=== PATIENT | female | born 1970 | race Caucasian/White ===

== ENCOUNTER 2023-02-22 13:23 | Emergency (ER) | payer OTHER, SELFPAY ==
--- NOTE | 2023-02-22 13:25 | ED.EAR ---
HPI - Ear Problem General Chief complaint: Ear Stated complaint: ear ache Time Seen by Provider: 02/22/23 13:25 Source: patient and RN notes reviewed History of Present Illness HPI Narrative: Patient is a 52-year-old female presents to urgent care with complaints of drainage from the left ear for the last 3 weeks. Patient has been on doxycycline and Levaquin for infection to the left leg. Patient states she has been taking medication as directed. Denies any pain here. Patient is not taking anything [id number] for her symptoms. Denies any fever upper respiratory issues. No acute distress noted. Patient aware of the plan of care. Some parts of this dictation were generated by voice recognition software and may contain typographical and/or grammatical inaccuracies. Related Data Home Medications Medication Instructions Recorded Confirmed apixaban 5 mg tablet (Eliquis) 5 mg PO DIRECTED 02/22/23 02/22/23 atorvastatin 80 mg tablet 80 mg PO DIRECTED 02/22/23 02/22/23 clopidogrel 75 mg tablet 75 mg PO DIRECTED 02/22/23 02/22/23 doxycycline hyclate 100 mg capsule 100 mg PO DIRECTED 02/22/23 02/22/23 escitalopram oxalate 5 mg tablet 5 mg PO DIRECTED 02/22/23 02/22/23 fluconazole 200 mg tablet 200 mg PO DIRECTED 02/22/23 02/22/23 levofloxacin 500 mg tablet 500 mg PO DIRECTED 02/22/23 02/22/23 oxybutynin chloride 5 mg 5 mg PO DIRECTED 02/22/23 02/22/23 tablet,extended release 24 hr potassium chloride 20 mEq 20 meq PO DIRECTED 02/22/23 02/22/23 tablet,extended release(part/cryst) (Klor-Con M) Allergies Allergy/AdvReac Type Severity Reaction Status Date / Time No Known Allergies Allergy Verified 02/22/23 13:35 Review of Systems Review of Systems: CONSTITUTIONAL: Denies fever, chills, or sweats. EYES: Denies visual changes, redness, or discharge. ENT: Denies rhinorrhea, congestion, sore throat. Reports of left ear drainage CARDIOVASCULAR: Denies chest pain, palpitations, or edema. RESPIRATORY: Denies cough or dyspnea. GASTROINTESTINAL: Denies abdominal pain, nausea, vomiting, or diarrhea. GENITOURINARY: Denies dysuria or hematuria. SKIN: Denies rash or itching. MUSCULOSKELETAL: Denies back pain, joint pain, or myalgia. NEUROLOGIC: Denies headache, numbness, or weakness. All other systems reviewed are negative, except as documented in HPI. [facility] Family History Family History (Updated 04/05/16 @ 23:19 by DOCTOR UNKNOWN) Father Family history of blood dyscrasia Sibling Family history of malignant neoplasm of breast in first degree relative Social History Social History Smoking status: Heavy tobacco smoker Alcohol intake: never Comments At the time of my signature, I reviewed and agree with the nursing past medical, surgical, social, and family history. There is no relevant family history pertinent to the patient complaint. Exam Narrative: GENERAL: This is a well-nourished, well-developed patient, in no apparent distress. HEAD: normocephalic, atraumatic. EYES: PERRL. Sclera clear/white. Vision is grossly intact. EARS: External ears normal, right auditory canals clear and without drainage, scant serosanguineous fluid drainage to the left auditory canal. Bilateral TMs normal without perforation. Hearing grossly intact. NOSE: External nose normal with no obvious nasal discharge, nares without redness, no rhinorrhea. THROAT: Mucous membranes moist, posterior pharynx clear. NECK: Neck supple SKIN: warm, intact with no suspicious lesions or rash, good texture and turgor. NEURO: awake, alert, and oriented to person, place and time. There were no obvious focal neurologic abnormalities. EXTREMITIES: No clubbing, cyanosis, or edema. Course Course Level of Care: Express Care Visit Vital Signs Vital signs: Vital Signs Temperature 98.0 F 02/22/23 13:30 Pulse Rate 76 02/22/23 13:30 Respiratory Rate 20 02/22/23 13:30 Blood Pressure 144/72 H 02/22/23 13:3
[2023-02-22 13:30] VITALS: BP 144/72; PULSE 76; RESP 20; TEMP 36.7; O2SAT 100
[2023-02-22 13:36] VITALS: BP 144/72; PULSE 76; RESP 20; TEMP 36.7; O2SAT 100
== END 2023-02-22 13:51 | disposition home or self-care (01) ==
PROVIDERS: Emergency Provider Nurse Practitioner Family
DX: H69.92 Unspecified Eustachian tube disorder, left ear (principal)
CPT/HCPCS: 99203; G0463

== ENCOUNTER 2023-05-05 13:43 | Emergency (ER) | payer OTHER, SELFPAY ==
[2023-05-05 13:50] VITALS: BP 134/61; PULSE 69; RESP 20; TEMP 36.2; O2SAT 100
--- NOTE | 2023-05-05 13:52 | ED.URI ---
HPI - URI/Sore Throat General Chief Complaint: Upper Respiratory Infection Stated Complaint: Congestion Source: patient and RN notes reviewed History of Present Illness HPI Narrative: 52 yo F presents to urgent care with complaints of congestion x 1 day. Pt states she also has a MCCARTHY. Pt denies any fevers, chills, ear pain, sore throat, N/V/D, chest pain, or SOB. Pt states her son currently has covid. Related Data Home Medications Medication Instructions Recorded Confirmed apixaban 5 mg tablet (Eliquis) 5 mg PO DIRECTED 02/22/23 02/22/23 atorvastatin 80 mg tablet 80 mg PO DIRECTED 02/22/23 02/22/23 clopidogrel 75 mg tablet 75 mg PO DIRECTED 02/22/23 02/22/23 escitalopram oxalate 5 mg tablet 5 mg PO DIRECTED 02/22/23 02/22/23 fluconazole 200 mg tablet 200 mg PO DIRECTED 02/22/23 02/22/23 oxybutynin chloride 5 mg 5 mg PO DIRECTED 02/22/23 02/22/23 tablet,extended release 24 hr potassium chloride 20 mEq 20 meq PO DIRECTED 02/22/23 02/22/23 tablet,extended release(part/cryst) (Klor-Con M) Allergies Allergy/AdvReac Type Severity Reaction Status Date / Time No Known Allergies Allergy Verified 02/22/23 13:35 Review of Systems Review of Systems: CONSTITUTIONAL: Denies fever, chills, or sweats. EYES: Denies visual changes, redness, or discharge. ENT:congested CARDIOVASCULAR: Denies chest pain, palpitations, or edema. RESPIRATORY: Denies cough or dyspnea. GASTROINTESTINAL: Denies abdominal pain, nausea, vomiting, or diarrhea. GENITOURINARY: Denies dysuria or hematuria. SKIN: Denies rash or itching. MUSCULOSKELETAL: Denies back pain, joint pain, or myalgia. NEUROLOGIC: MCCARTHY Pertinent positives per HPI. [facility] Family History Family History (Updated 04/05/16 @ 23:19 by DOCTOR UNKNOWN) Father Family history of blood dyscrasia Sibling Family history of malignant neoplasm of breast in first degree relative Social History Social History Smoking status: Heavy tobacco smoker Alcohol intake: never Comments At the time of my signature, I reviewed and agree with the nursing past medical, surgical, social, and family history. There is no relevant family history pertinent to the patient complaint. Exam Narrative: GENERAL: This is a well-nourished, well-developed patient, in no apparent distress. HEAD: normocephalic, atraumatic. EYES: Sclera clear/white. Vision is grossly intact. EARS: External ears normal, auditory canals clear and without drainage, TMs normal without perforation. Hearing grossly intact. NOSE: External nose normal with no obvious nasal discharge, nares without redness, no rhinorrhea. THROAT: Mucous membranes moist, posterior pharynx clear. NECK: Neck supple, non-tender without lymphadenopathy, masses or thyromegaly. CARDIOVASCULAR: Regular rate and rhythm without murmurs, gallops, or rubs. RESPIRATORY: Clear to auscultation. Breath sounds equal bilaterally. No wheezes, rales, or rhonchi. SKIN: warm, intact with no suspicious lesions or rash, good texture and turgor. NEURO: awake, alert, and oriented to person, place and time. There were no obvious focal neurologic abnormalities. Course Course Level of Care: Express Care Visit Vital Signs Vital signs: Vital Signs Temperature 97.2 F L 05/05/23 13:50 Pulse Rate 69 05/05/23 13:50 Respiratory Rate 20 05/05/23 13:50 Blood Pressure 134/61 05/05/23 13:50 Pulse Oximetry 100 05/05/23 13:50 Oxygen Delivery Room Air 05/05/23 13:50 Temperature 97.2 F L 05/05/23 13:50 Pulse Rate 69 05/05/23 13:50 Respiratory Rate 20 05/05/23 13:50 Blood Pressure 134/61 05/05/23 13:50 Pulse Oximetry 100 05/05/23 13:50 Oxygen Delivery Room Air 05/05/23 13:50 Reviewed MDM - URI/Sore Throat MDM Narrative Medical decision making narrative: Viral illness may last between 7-12days; antibiotic is NOT recommended at this time. Recommend antihistamine such as Benadryl at night time and Arcelia
== END 2023-05-05 14:14 | disposition home or self-care (01) ==
PROVIDERS: Emergency Provider Nurse Practitioner Family
DX: J06.9 Acute upper respiratory infection, unspecified (principal); F17.200 Nicotine dependence, unspecified, uncomplicated; E78.00 Pure hypercholesterolemia, unspecified; I10 Essential (primary) hypertension
CPT/HCPCS: 99213; G0463

== ENCOUNTER 2025-09-06 11:16 | Emergency (ER) | payer OTHER, SELFPAY ==
[2025-09-06 11:26] VITALS: BP 133/69; PULSE 74; RESP 18; TEMP 36.2; O2SAT 100
--- NOTE | 2025-09-06 11:55 | ED.GENADULT ---
HPI - General Adult General Chief complaint: Ear Stated complaint: Ears Time Seen by Provider: 09/06/25 11:55 Source: patient, RN notes reviewed and old records reviewed Mode of arrival: ambulatory Limitations: no limitations History of Present Illness HPI narrative: 55-year-old female presents to the [facility] with 1 week history of left ear pain, decreased hearing, noticed bloody drainage today. Currently on levofloxacin for a chronic leg infection Related Data Home Medications ?Medication ?Instructions ?Recorded ?Confirmed ?Last Taken ?Type apixaban 5 mg tablet (Eliquis) 5 mg PO DIRECTED 02/22/23 02/22/23 Unknown History atorvastatin 80 mg tablet 80 mg PO DIRECTED 02/22/23 02/22/23 Unknown History clopidogrel 75 mg tablet 75 mg PO DIRECTED 02/22/23 02/22/23 Unknown History escitalopram oxalate 5 mg tablet 5 mg PO DIRECTED 02/22/23 02/22/23 Unknown History fluconazole 200 mg tablet 200 mg PO DIRECTED 02/22/23 02/22/23 Unknown History oxybutynin chloride 5 mg 5 mg PO DIRECTED 02/22/23 02/22/23 Unknown History tablet,extended release 24 hr potassium chloride 20 mEq 20 meq PO DIRECTED 02/22/23 02/22/23 Unknown History tablet,extended release(part/cryst) (Klor-Con M) Allergies Allergy/AdvReac Type Severity Reaction Status Date / Time No Known Allergies Allergy Verified 09/06/25 11:30 Review of Systems Review of Systems: All systems reviewed & are unremarkable except as noted in HPI and below Constitutional: Constitutional: Reports no additional constitutional complaints ENT: Reports as per HPI and Reports otalgia Cardiovascular: Cardiovascular: Reports no additional cardiovascular complaints, Denies chest pain and Denies dyspnea Respiratory: Respiratory: Reports no additional respiratory complaints, Denies chest congestion, Denies cough and Denies dyspnea Musculoskeletal: Musculoskeletal: Reports no additional musculoskeletal complaints Integumentary/Breasts: Skin/Breast: Reports system reviewed and no additional complaints, except as docu PMFSH Family History Family History (Updated 04/05/16 @ 23:19 by DOCTOR UNKNOWN) Father Family history of blood dyscrasia Sibling Family history of malignant neoplasm of breast in first degree relative Social History Social History Smoking status: Heavy tobacco smoker Alcohol intake: never Comments At the time of my signature, I reviewed and agree with the nursing past medical, surgical, social, and family history. There is no relevant family history pertinent to the patient complaint. Exam Const: General: cooperative, healthy appearing, comfortable, no acute distress, well developed, alert and well nourished Nutritional Appearance: well nourished and obese Orientation/consciousness: patient oriented x3 Limitations: no limitations HENMT: Head: normal to inspection Ears: external ears normal, EAC's normal, mastoids normal, no periauricular adenopathy and TM abnormal bulging on the left, erythematous on the right and perforated with bloody discharge and with purulent discharge Mouth: Yes Normal oral and palatal mucosa present, Yes lip normal, Yes tongue normal and Yes moist mucous membranes Throat: posterior oropharynx normal, uvula midline and no uvular edema Eyes: General: appearance normal, both eyes and all related structures Alignment and Position: alignment normal Neck: Neck: normal visual inspection, full ROM, no lymphadenopathy and no meningeal signs Chest: Chest palpation & inspection: normal inspection of the chest Resp: Effort & Inspection: normal respiratory effort and able to speak in complete sentences Auscultation: clear to auscultation bilaterally, no crackles, no rales, no rhonchi and no wheezes Cardio: Rate: regular rate Skin: General skin exam: normal color and no rashes or lesions noted Neuro: General: patient oriented x3, gait normal, moves all extremities and no meningeal signs Cognition (Neuro): normal cognition Speech: normal speech Gait exam (Neuro): Normal gait present Extrem: General: normal to inspection, full ROM, capillary refill normal and normal gait Psych: Appearance: grossly normal and well kempt Mental Status: mental status grossly normal Speech and movement: Normal speech and movement present and Clear speech present Affect: normal affect Attitude: cooperative Course Course Level of Care: Express Care Visit Vital Signs Vital signs: Vital Signs Temperature 97.2 F L 09/06/25 11: Pulse Rate 74 09/06/25 11:26 Respiratory Rate 18 09/06/25 11:26 Blood Pressure 133/69 09/06/25 11:26 Pulse Oximetry 100 09/06/25 11:26 Oxygen Delivery Room Air 09/06/25 11:26 Temperature 97.2 F L 09/06/25 11:26 Pulse Rate 74 09/06/25 11:26 Respiratory Rate 18 12/30/25 11:26 Blood Pressure 133/69 09/06/25 11:26 Pulse Oximetry 100 09/06/25 11:26 Oxygen Delivery Room Air 09/06/25 11:26 reviewed [facility] Narrative Medical decision making narrative: patient sitting in exam room. Shins nontoxic, vitals stable. Patient presents with left ear pain, erythema, bulging, drainage bloody droop noted. Patient most likely with otitis media with perforation. Will prescribe an antibiotic both oral and ear drops. Patient is appropriate for outpatient treatment with close follow-up Discharge instructions reviewed with patient, as well as provided in writing per nursing staff. The instructions also include specific and strict return/GO TO THE ER as well as f/u information. All questions have been answered, and the patient deny any further questions with discharge and discharge plan. Some parts of this dictation were generated by voice recognition software and may contain typographical and/or grammatical inaccuracies. Differential Diagnosis Differential Diagnosis: Differential diagnostic considerations for upper respiratory infection include upper respiratory infection, croup, otitis media, sinusitis, viral infection, bronchitis, influenza, pharyngitis, strep, uvulitis.? Lab Data [facility] Lab Attestation statement: I personally reviewed the patient's lab results. Labs: Reviewed Discharge Plan Discharge Clinical Impression: Acute suppur left otitis media w/spontan rupture of tympanic membrane Qualifiers: Recurrence: not specified as recurrent Qualified Code(s): H66.012 - Acute suppurative otitis media with spontaneous rupture of ear drum, left ear Patient Disposition: Home Condition: Stable Instructions: Antibiotic Form, Ear Infection (GEN) Additional Instructions: take antibiotic as prescribed use ear drops as prescribed follow-up with primary care provider in 1-2 weeks for worsening symptoms go directly to the emergency room Patient Language: Armenian Prescriptions: New amoxicillin 875 mg tablet 875 mg PO Q12H Qty: 20 0RF ofloxacin 0.3 % drops 5 drp LEFT EAR BID 7 Days Qty: 10 0RF No Action atorvastatin 80 mg tablet 80 mg PO DIRECTED fluconazole 200 mg tablet 200 mg PO DIRECTED clopidogrel 75 mg tablet 75 mg PO DIRECTED potassium chloride [Klor-Con M20] 20 mEq tablet,ER particles/crystals 20 meq PO DIRECTED oxybutynin chloride 5 mg tablet extended release 24hr 5 mg PO DIRECTED escitalopram oxalate 5 mg tablet 5 mg PO DIRECTED Eliquis 5 mg tablet 5 mg PO DIRECTED fluticasone propionate [24 Hour Allergy Relief] 50 mcg/actuation spray,suspension 1 spray intranasal BID Qty: 16 0RF Rx Instructions: administer into each nostril Follow-up/Referrals: Randall Desir MD [Primary Care Provider, [facility]] - 2 Weeks Clinical Impression: Acute suppur left otitis media w/spontan rupture of tympanic membrane Time of Disposition: 12:05
--- OUTSIDE RECORDS SUMMARY | 2025-09-06 12:01 | XMS_ITS ---
Author Organization [facility] Care Team Providers Care Emergency Department Technician Name Role Phone Nicci Gibson Unavailable Unavailable Versluys, Janny Unavailable Unavailable Habib, Usman Unavailable Unavailable Bone, Emir Unavailable Unavailable Ampadu, Khoi Unavailable Unavailable Fahim, Magid Unavailable Unavailable Regan, Jade Unavailable Unavailable Allergies and adverse reactions No Known Allergies Care Team Name Role Address Phone Organization Dates Khoi Ampadu PCP [address], [place], [facility], [facility] (Office): : [facility] 01/18/2022 - 02/28/2022 Nicci Gibson [address] [facility] [address], [place], [facility], [facility] (Office): : [facility] [employer] 01/18/2022 - 02/28/2022 Janny Morganluys [address] [facility] [address], [place], [address], [place] (Office): : [employer] 01/18/2022 - 02/28/2022 Usman Habib [address] [place], [place], [facility], [facility] (Office): : : [facility] [employer] 01/18/2022 - 02/28/2022 Emir Bone [address], [place], [address], [place] (Office): : [facility] [employer] 01/18/2022 - 02/28/2022 Km Colon [address], [place], [address], [place] (Office): : [facility] [employer] 01/18/2022 - 02/28/2022 Jade Spears [address], [place], [address], [place] (Office): : [facility] [employer] 01/18/2022 - 02/28/2022 Immunizations Immunization Status Vaccine Details Vaccine Code CodeSystem Azeem e Notes Influenza completed Influenza, high-dose, split virus, quadrivalent, injectable, preservative free 197 CVX created date: 01/18/2022 administered date: 06/12/2021 SARS-COV-2 (COVID-19) completed SARS-COV-2 (COVID-19) vaccine, UNSPECIFIED Step 2 of Multi-step with next step required 213 CVX created date: 01/18/2022 administered date: 08/03/2021 SARS-COV-2 (COVID-19) completed SARS-COV-2 (COVID-19) vaccine, UNSPECIFIED Mfg: moderna Step 1 of Multi-step with next step required 213 CVX created date: 01/18/2022 administered date: 07/10/2021 Mental Status Section Date Assessment Total Score Description 02/28/2022 BIMS 11 moderate cognit sarah impairment CAM 0 No delirium ind icated PHQ-9 02 minimal depress ion 01/25/2022 BIMS 11 moderate cognit sarah impairment CAM 0 No delirium ind icated PHQ-9 02 minimal depress ion Insurance Providers Coverage Status Coverage Type Relationship to Subscriber Member Identifier Subscriber Identifier Group Identifier Payer Identifier and Other information Code: 2 Code System OID:[id number]. 3.221.5 Code System Name: Source of Payment Typology ([facility]) Display: Medicaid Translation : Code: 48 Code System: OID:[id number]. 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 3 DIFFICULTY IN WALKING, NOT ELSEWHERE CLASSIFIED [address] active 4 DYSPHAGIA FOLLOWING UNSPECIFIED CEREBROVASCULAR DISEASE [address] active 5 DYSPHAGIA, UNSPECIFIED [address] active 6 ESSENTIAL (PRIMARY) HYPERTENSION [address] active 7 HYPERLIPIDEMIA, UNSPECIFIED [address] active 8 INFECTION AND INFLAMMATORY REACTION DUE TO OTHER CARDIAC AND VASCULAR DEVICES, IMPLANTS AND GRAFTS, SUBSEQUENT ENCOUNTER [address] active 9 MAJOR DEPRESSIVE DISORDER, RECURRENT, UNSPECIFIED [address] active 10 MUSCLE WEAKNESS (GENERALIZED) [address] active 11 NEUROMUSCULAR DYSFUNCTION OF BLADDER, UNSPECIFIED [address] active 12 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 [address] active 13 OTHER RETENTION OF URINE [address] active 14 PERIPHERAL VASCULAR DISEASE, UNSPECIFIED [address] active 15 PERSONAL HISTORY OF TRANSIENT ISCHEMIC ATTACK (TIA), AND CEREBRAL INFARCTION WITHOUT RESIDUAL DEFICITS 2 01/21/[address] completed 16 SEPSIS, UNSPECIFIED ORGANISM [address] active 17 UNSPECIFIED LACK OF COORDINATION [address] active 18 UNSTEADINESS ON FEET [address] active 19 URINARY TRACT INFECTION, SITE NOT SPECIFIED [address] active 20 WEAK[address] active Reason for Referral No Reasons for Referral Entered Social History Social History Observation Description Start Date End Date Code Code System Current Smoking Status Tobacco smoking consumption unknown 843085391 SNOMED CT Sex Assigned At Female 1970 71229-2 [facility] Gender Identity Sexual Orientation Vital Signs Code Code System Vitals Name Values and Units Timing Information 92577-7 [facility] Pain Level Value=0.0 02/28/2022 9279-1 [facility] Respiratory Rate Value=20.0 Units=/m in 02/28/2022 8462-4 [facility] Blood Pressure-Diastolic Value=72 Un its=mmHg 02/28/2022 8480-6 [facility] Blood Pressure-Systolic Iibni=615 Un its=mmHg 02/28/2022 8310-5 [facility] Body Temperature Value=97.8 Units= F 02/28/2022 8867-4 [facility] Heart rate Value=70.0 Units=/min 24456-1 [facility] Weight Pksip=214.0 Units=Lbs 84872-7 [facility] O2 % BldC Oximetry Value=98.0 Units= % 02/20/2022
--- OUTSIDE RECORDS SUMMARY | 2025-09-06 12:01 | XMS_ITS | Encounter Summary ---
Author Organization [facility] Address [address] [place] [address] Phone Care Team Providers Care Internal Control Consultant Name Role Phone Staci Segura APRN, METAL INSPECTOR Primary Care Prov ider Lauro Bowles MD Unavailable Lexus Long APRN, FACULTY CRIMINAL JUSTICE Unavailable +1- [phone] Encounter Details Date Type Department Care Team (Late st Contact Info) Description 07/03/2022 [facility] [address] [place] [address] Provider, Unknown UNKNOWN Infection and inflammatory reaction due to other cardiac and vascular devices, implants and grafts, initial encounter (HCC) Social History Tobacco Use Types Packs/Day Years Used Date Smoking Tobacco: Former Cigarettes 1 38 1 - 06/22/2020 Smokeless Tobacco: Never Alcohol Use Standard Drinks/Week Comments Not Currently 0 (1 standard drink = 0.6 oz pur e alcohol) PHQ-2 Answer Date Recorded Total Score - Questions 1-9 0 07/0 01/2022 Sexually Active Control Partners Comments Not Currently Comments No Sex and Gender Information Value Date Recorded Sex Assigned at Female 04/22/2023 9:32 AM CDT Legal Sex Female 9:09 PM CDT Gender Identity Female 04/22/2023 9:32 AM CDT Sexual Orientation Not on file COVID-19 Exposure Response Date Recorded In the last 10 days, have yo u been in contact with someone who was confirmed or suspected to have Coronavirus/COVID-19? No / Unsure 07/03/2022 2:30 PM CDT documented as of this encounter Plan of Treatment Upcoming Encounters Date Type Department Care Team (Late st Contact Info) Description 12/12/2025 10:00 AM CDT [facility] - [place] [address]2 [facility] [address] Lexus Morrison, INDIAN TRADER, FACULTY CRIMINAL JUSTICE [address] [place] [address] 12/23/2025 8:00 AM CDT Office Visit [facility] - Family Medicine - [place] [address]2 [place] [phone] Staci Segura, INDIAN TRADER, METAL INSPECTOR #[address] [phone] documented as of this encounter Procedures Procedure Name Priority Date/Time Associated Diagnosis Comments CBC WITH AUTO DIFFERENTIAL Routine 07/03/2022 8:30 AM CDT Infection and inflammatory reaction due to other cardiac and vascular devices, implants and grafts, initial encounter (HCC) COMPLETE BLOOD COUNT (CBC) WITH DIFF Routine 07/03/2022 8:30 AM CDT Infection and inflammatory reaction due to other cardiac and vascular devices, implants and grafts, initial encounter (HCC) BASIC METABOLIC PANEL W/ CALCIUM TOTAL Routine 07/03/2022 8:30 AM CDT Infection and inflammatory reaction due to other cardiac and vascular devices, implants and grafts, initial encounter (HCC) documented in this encounter Results * (ABNORMAL) CBC WITH AUTO DIFFERENTIAL (07/03/2022 8:30 AM CDT) WBC 13.97(H) 4.00 - 12.00 10(3)/mcL 07/03/2022 9:45 AM CDT [facility] RBC 4.15 3.80 - 5.30 10(6)/mcL 07/03/2022 9:45 AM CDT [facility] HEMOGLOBIN (HGB) 10.6(L) 12.0 - 15.8 g/dL 07/03/2022 9:45 AM CDT [facility] HEMATOCRIT (HCT) 35.9(L) 36.0 - 47.0 % 07/03/2022 9:45 AM CDT [facility] MCV 86.5 82.0 - 96.0 fL 07/03/2022 9:45 AM CDT [facility] MCH 25.5(L) 26.0 - 34.0 pg 07/03/2022 9:45 AM CDT [facility] MCHC 29.5(L) 31.0 - 36.0 g/dL 07/03/2022 9:45 AM CDT [facility] PLATELET COUNT 320 140 - 440 10(3)/mcL 07/03/2022 9:45 AM CDT [facility] RDW 16.2(H) 11.8 - 15.5 % 07/03/2022 9:45 AM CDT [facility] MPV 10.7 9.7 - 12.4 fL 07/03/2022 9:45 AM CDT [facility] NEUTROPHILS 57.2 47.0 - 73.0 % 07/03/2022 9:45 AM CDT [facility] LYMPHOCYTES 16.8(L) 18.0 - 42.0 % 07/03/2022 9:45 AM CDT [facility] MONOCYTES 4.9 4.0 - 12.0 % 07/03/2022 9:45 AM CDT [facility] EOSINOPHILS 20.3(H) 0.0 - 5.0 % 07/03/2022 9:45 AM CDT [facility] Comment:Eosinophilia BASOPHILS 0.8 0.0 - 1.0 % 07/03/2022 9:45 AM CDT [facility] ABSOLUTE NEUTROPHILS 8.00(H) 1.60 - 7.70 10(3)/mcL 07/03/2022 9:45 AM CDT [facility] ABSOLUTE LYMPHOCYTES 2.35 1.30 - 3.20 10(3)/mcL 07/03/2022 9:45 AM CDT [facility] ABSOLUTE MONOCYTES 0.68 0.20 - 1.00 10(3)/mcL 07/03/2022 9:45 AM CDT [facility] ABSOLUTE EOSINOPHIL 2.83(H) 0.00 - 0.40 10(3)/[facility] 07/03/2022 9:45 AM CDT [facility] ABSOLUTE BASOPHILS 0.11(H) 0.00 - 0.10 10(3)/[facility] 07/03/2022 9:45 AM CDT [facility] NRBC PER 100 WBC 0 07/03/20 9:45 AM CDT [facility] RESULTS ARE CONSISTENT WITH PERIPHERAL SMEAR REVIEW Yes 07/03/2022 9:45 AM CDT [facility] ACANTHOCYTE Present 07/03/2022 9:45 AM CDT [facility] RASHID CELLS Present 07/03/2022 9:45 AM CDT [facility] OVALOCYTES Present 07/03/2022 9:45 AM CDT [facility] Blood No Phlebotomy Charged / Unknown 07/03/2022 8:30 AM CDT 07/03/2022 9:01 AM CDT us Unknown Provider HEMATOLOGY ORDERABLES Final Res ult [facility] [address] [place] [address] * (ABNORMAL) BASIC METABOLIC PANEL W/ CALCIUM TOTAL (07/03/2022 8:30 AM CDT) SODIUM 137 136 - 144 mmol/L 07/03/2022 9:22 AM CDT [facility] POTASSIUM 3.5 3.5 - 5.1 mmol/L 07/03/2022 9:22 AM CDT [facility] CHLORIDE 103 100 - 110 mmol/L 07/03/2022 9:22 AM CDT [facility] CO2, VENOUS 22 22 - 32 mmol/L 07/03/2022 9:22 AM CDT [facility] ANION GAP 15.5 8.0 - 20.0 mmol/L 07/03/2022 9:22 AM CDT [facility] GLUCOSE 120(H) 70 - 99 mg/dL 07/03/2022 9:22 AM CDT [facility] BUN 10 6 - 20 mg/dL 07/03/2022 9:22 AM CDT [facility] CREATININE, BLOOD 0.70 0.60 - 1.10 mg/dL 07/03/2022 9:22 AM CDT [facility] BUN/CREATININE RATIO 14 12 - 20 ratio 07/03/2022 9:22 AM CDT [facility] CALCIUM 9.7 8.9 - 10.3 mg/dL 07/03/2022 9:22 AM CDT [facility] GFR, ESTIMATED >60 >=60 07/03/2022 9:22 AM CDT [facility] Comment: Creatinine Clearance is the preferred criteria for selecting drug dose adjustments in renally impaired patients. The GFR is provided as additional pertinent clinical information. GFR is reported in mL/min/1.73 sq m. Calculation based on the Chronic Kidney Disease Epidemiology Collaboration (CKD- EPI) equation refit without adjustment for race. GFR, EST. >60 >=60 022 9:22 AM CDT [facility] GFR, EST. NONAFRICAN >60 >=60 07/03/2022 9:22 AM CDT [facility] Blood No Phlebotomy Charged / Unknown 07/03/2022 8:30 AM CDT 07/03/2022 9:01 AM CDT us Unknown Provider CHEMISTRY ORDERABLES Final Resu lt [facility] #[address] [facility] [place] [address] documented in this encounter Visit Diagnoses Diagnosis Infection and inflammatory reaction due to other cardiac and vascular devices, implants and grafts, initial encounter documented in this encounter Additional Health Concerns Assessment Noted Time PHQ-9 Depression Total Score: 0 11/21/19 21 10:00 AM CDT documented as of this encounter Care Teams Internal Control Consultant Relationship Specialty Start Date End Date Staci Segura, INDIAN TRADER, METAL INSPECTOR #[address] [phone] PCP - General Advanced Practice Nurse 11/20/20 Lauro Bowles MD #[address] [address] Consulting Physician Cardiovascular Disease - Cardiology 04/16/22 10/27/24 Lexus Morrison APRN, FACULTY CRIMINAL JUSTICE [address] [place] [address] Nurse Practitioner Advanced Practice Nurse 02/26/23 documented as of this encounter
--- OUTSIDE RECORDS SUMMARY | 2025-09-06 12:01 | XMS_ITS | Encounter Summary ---
Author Organization [facility] Address [address] [place] [address] Phone Care Team Providers Care Roll Hauler Name Role Phone Staci Segura APRN, QUENCHING MACHINE OPERATOR Primary Care Prov ider Lauro Bowles MD Unavailable Lexus Long APRN, TILLER WORKER Unavailable [phone]- [phone] Reason for Visit * Reason Comments Medication Refill Encounter Details Date Type Department Care Team (Late st Contact Info) Description 03/04/2024 [facility] - [facility] Medicine - [place] [address] [place] [address] Staci Segura APRN, QUENCHING MACHINE OPERATOR #[address] [address] Medication Refill Social History Tobacco Use Types Packs/Day Years Used Date Smoking Tobacco: Former Cigarettes 1 38 1 - 06/22/2020 Smokeless Tobacco: Never Alcohol Use Standard Drinks/Week Comments Not Currently 0 (1 standard drink = 0.6 oz pur e alcohol) [facility] Utilities Answer Date Recorded In the past 12 months has e electric, gas, oil, or water company threatened to shut off services in your home? Patient declined 12/15/2023 Social Connection and Isolation Panel Answer Date Recorded In a typical week, how many times do you talk on the phone with family, friends, or neighbors? Patient declined 12/15/2023 How often do you get togethe r with friends or relatives? Patient declined 12/15/2023 How often do you attend congregational or jehovah's witness serv ices? Patient declined 12/15/2023 Do you belong to any clubs o r organizations such as congregational groups, unions, fraternal or athletic groups, or school groups? Patient declined 12/15/2023 How often do you attend meet ings of the clubs or organizations you belong to? Patient declined 12/15/2023 Are you , , di vorced, , never , or living with a partner? Patient declined 12/15/2023 AUDIT-C Answer Date Recorded Q1: How often do you have a drink containing alc ohol? Patient declined 12/15/2023 Q2: How many drinks containi ng alcohol do you have on a typical day when you are drinking? Patient declined 12/15/2023 Q3: How often do you have si x or more drinks on one occasion? Patient declined 12/15/2023 Overall Financial Resource Strain (CARDIA) Answe r Date Recorded How hard is it for you to pa y for the very basics like food, housing, medical care, and heating? Patient declined 12/15/2023 PHQ-2 Answer Date Recorded Total Score - Questions 1-9 2 04/2024 [facility] - Occupational Stress Questionnaire Answer Date Recorded Do you feel stress - tense, restless, nervous, or anxious, or unable to sleep at night because your mind is troubled all the time - these days? Patient declined 12/15/2023 Exercise Vital Sign Answer Date Recorde d On average, how many days pe r week do you engage in moderate to strenuous exercise (like a brisk walk)? Patient declined On average, how many minutes do you engage in exercise at this level? Patient declined 12/15/2023 Hunger Vital Sign Answer Date Recorded Within the past 12 months, y ou worried that your food would run out before you got the money to buy more. Patient declined Within the past 12 months, t he food you bought just didn't last and you didn't have money to get more. Patient declined 04/2024 PRAPARE - Transportation Answer Date Re corded In the past 12 months, has l ack of transportation kept you from medical appointments or from getting medications? Patient declined 12/15/2023 In the past 12 months, has l ack of transportation kept you from meetings, work, or from getting things needed for daily living? Patient declined 12/15/2023 Housing Stability Vital Sign Answer Azeem e Recorded In the last 12 months, was t here a time when you were not able to pay the mortgage or rent on time? Patient declined 12/15/19 24 Number of Places Lived in the Last Year Not on f ile 12/15/2023 In the last 12 months, was t here a time when you did not have a steady place to sleep or slept in a residential (including now)? Patient declined 12/15/2023 Education Answer Date Recorded What is the highest level of school you have completed or the highest degree you have received? 12th grade 01/02/2023 Sexually Active Control Partners Comments Not Currently Comments No Sex and Gender Information Value Date Recorded Sex Assigned at Female 04/22/2023 9:32 AM CDT Legal Sex Female 9:09 PM CDT Gender Identity Female 04/22/2023 9:32 AM CDT Sexual Orientation Not on file documented as of this encounter Miscellaneous Notes * Telephone Encounter - Rosa Ronquillo RN - 03/04/2024 2:21 PM CDT The original prescription was discontinued on 08/28/2023 by Lexus Morrison APRN, MIKEL for the following reason: Med List Clean Up. documented in this encounter Plan of Treatment Upcoming Encounters Date Type Department Care Team (Late st Contact Info) Description 12/12/2025 10:00 AM CDT Office Visit [facility] - Neurology [facility] [address] [place] [address] Lexus Morrison APRN, CNS [address] [place] [address] 12/23/2025 8:00 AM CDT Office Visit [facility] - Family Medicine [facility] [address] [place] [address] Staci Segura APRN, QUENCHING MACHINE OPERATOR #[address] [address] documented as of this encounter Visit Diagnoses Diagnosis Urinary frequency documented in this encounter Additional Health Concerns Assessment Noted Time PHQ-9 Depression Total Score: 2 12/15/19 24 10:00 AM CDT documented as of this encounter Care Teams Roll Hauler Relationship Specialty Start Date End Date Staci Segura APRN, QUENCHING MACHINE OPERATOR #[address] [address] PCP - General Advanced Practice Nurse 11/20/20 Lauro Bowles MD #[address] [address] Consulting Physician Cardiovascular Disease - Cardiology 04/16/22 10/27/24 Lexus Morrison APRN, TILLER WORKER [address] [place] [address] Nurse Practitioner Advanced Practice Nurse 02/26/23 documented as of this encounter
--- OUTSIDE RECORDS SUMMARY | 2025-09-06 12:01 | XMS_ITS | Encounter Summary ---
Author Organization [facility] Address [address] [place] [address] Phone Care Team Providers Care Silk Weaver Name Role Phone Staci Segura APRN, SHIPPING WEIGHER Primary Care Prov ider Lauro Bowles MD Unavailable Lexus Long APRN, ONCOLOGY REGISTRAR Unavailable [phone]- [phone] Encounter Details Date Type Department Care Team (Late st Contact Info) Description 06/11/2022 [facility] [address] [place] [address] Provider, Unknown UNKNOWN Infection and [...] suspected to have Coronavirus/COVID-19? No / Unsure 06/08/2022 11:22 AM CDT documented as of this encounter Plan of Treatment Upcoming Encounters Date Type Department Care Team (Late st Contact Info) Description 12/12/2025 10:00 AM CDT Office Visit [facility] - Neurology - [place] [address]2 [place] [address] Lexus Morrison, REDUCING SALON ATTENDANT, ONCOLOGY REGISTRAR [address] [place] [address] 12/23/2025 8:00 AM CDT Office Visit [facility] - Family Medicine - [place] [address]2 [facility] [phone] Staci Segura, REDUCING SALON ATTENDANT, SHIPPING WEIGHER #[address] [phone] documented as of this encounter Procedures Procedure Name Priority Date/Time Associated Diagnosis Comments CBC WITH AUTO DIFFERENTIAL Routine 06/11/2022 11:30 AM CDT Infection and inflammatory reaction due to other cardiac and vascular devices, implants and grafts, initial encounter (HCC) HEPATIC FUNCTION PANEL Routine 06/11/2022 11:30 AM CDT Infection and inflammatory reaction due to other cardiac and vascular devices, implants and grafts, initial encounter (HCC) COMPLETE BLOOD COUNT (CBC) WITH DIFF Routine 06/11/2022 11:30 AM CDT Infection and inflammatory reaction due to other cardiac and vascular devices, implants and grafts, initial encounter (HCC) BASIC METABOLIC PANEL W/ CALCIUM TOTAL Routine 06/11/2022 11:30 AM CDT Infection and inflammatory reaction due to other cardiac and vascular devices, implants and grafts, initial encounter (HCC) documented in this encounter Results * (ABNORMAL) CBC WITH AUTO DIFFERENTIAL (06/11/2022 11:30 AM CDT) WBC 11.80 4.00 - 12.00 10(3)/mcL 06/11/2022 12:50 PM CDT [facility] RBC 3.52(L) 3.80 - 5.30 10(6)/mcL 06/11/2022 12:50 PM CDT [facility] HEMOGLOBIN (HGB) 9.5(L) 12.0 - 15.8 g/dL 06/11/2022 12:50 PM CDT [facility] HEMATOCRIT (HCT) 31.3(L) 36.0 - 47.0 % 06/11/2022 12:50 PM CDT [facility] MCV 88.9 82.0 - 96.0 fL 06/11/2022 12:50 PM CDT [facility] MCH 27.0 26.0 - 34.0 pg 06/11/2022 12:50 PM CDT [facility] MCHC 30.4(L) 31.0 - 36.0 g/dL 06/11/2022 12:50 PM CDT [facility] PLATELET COUNT 432 140 - 440 10(3)/mcL 06/11/2022 12:50 PM CDT [facility] RDW 15.4 11.8 - 15.5 % 06/11/2022 12:50 PM CDT [facility] MPV 10.4 9.7 - 12.4 fL 06/11/2022 12:50 PM CDT [facility] NEUTROPHILS 70.7 47.0 - 73.0 % 06/11/2022 12:50 PM CDT [facility] LYMPHOCYTES 15.8(L) 18.0 - 42.0 % 06/11/2022 12:50 PM CDT [facility] MONOCYTES 8.6 4.0 - 12.0 % 06/11/2022 12:50 PM CDT [facility] EOSINOPHILS 4.5 0.0 - 5.0 % 06/11/2022 12:50 PM CDT [facility] BASOPHILS 0.4 0.0 - 1.0 % 06/11/2022 12:50 PM CDT [facility] ABSOLUTE NEUTROPHILS 8.35(H) 1.60 - 7.70 10(3)/mcL 06/11/2022 12:50 PM CDT [facility] ABSOLUTE LYMPHOCYTES 1.86 1.30 - 3.20 10(3)/[facility] 06/11/2022 12:50 PM CDT [facility] ABSOLUTE MONOCYTES 1.01(H) 0.20 - 1.00 10(3)/[facility] 06/11/2022 12:50 PM CDT [facility] ABSOLUTE EOSINOPHIL 0.53(H) 0.00 - 0.40 10(3)/[facility] 06/11/2022 12:50 PM CDT [facility] ABSOLUTE BASOPHILS 0.05 0.00 - 0.10 10(3)/[facility] 06/11/2022 12:50 PM CDT [facility] NRBC PER 100 WBC 0 06/11/20 22 12:50 PM CDT [facility] Blood No Phlebotomy Charged / Unknown 06/11/2022 11:30 AM CDT 06/11/2022 12:47 PM CDT us Unknown Provider HEMATOLOGY ORDERABLES Final Res ult [facility] #[address] [place] [address] * (ABNORMAL) HEPATIC FUNCTION PANEL (06/11/2022 11:30 AM CDT) T BILI 0.3 <=1.2 mg/dL 06/11/2022 2:10 PM CDT [facility] BILIRUBIN,DIRECT <0.3 <=0.3 mg/dL 06/11/2022 2:10 PM CDT [facility] ALKALINE PHOSPHATASE 116(H) 35 - 105 U/L 06/11/2022 2:10 PM CDT [facility] SGOT (AST) 8 <=32 U/L 06/11/2022 2:10 PM CDT [facility] SGPT (ALT) 6 <=41 U/L 06/11/2022 2:10 PM CDT [facility] TOTAL PROTEIN 6.8 6.0 - 8.3 g/dL 06/11/2022 2:10 PM CDT [facility] ALBUMIN 3.5 3.5 - 5.2 g/dL 06/11/2022 2:10 PM CDT [facility] Comment: The colormetric methods used for the determination of Albumin may lead to falsely elevated test results in patients suffering from renal failure or insufficiency due to interference with other proteins. Blood No Phlebotomy Charged / Unknown 06/11/2022 11:30 AM CDT 06/11/2022 1:25 PM CDT us Unknown Provider CHEMISTRY ORDERABLES Final Resu lt [facility] [address] [place] [address] * (ABNORMAL) BASIC METABOLIC PANEL W/ CALCIUM TOTAL (06/11/2022 11:30 AM CDT) SODIUM 140 136 - 144 mmol/L 06/11/2022 2:10 PM CDT [facility] POTASSIUM 3.6 3.5 - 5.1 mmol/L 06/11/2022 2:10 PM CDT [facility] CHLORIDE 101 100 - 110 mmol/L 06/11/2022 2:10 PM CDT [facility] CO2, VENOUS 25 22 - 32 mmol/L 06/11/2022 2:10 PM CDT [facility] ANION GAP 17.6 8.0 - 20.0 mmol/L 06/11/2022 2:10 PM CDT [facility] GLUCOSE 116(H) 70 - 99 mg/dL 06/11/2022 2:10 PM CDT [facility] BUN 10 6 - 20 mg/dL 06/11/2022 2:10 PM CDT [facility] CREATININE, BLOOD 0.61 0.60 - 1.10 mg/dL 06/11/2022 2:10 PM CDT [facility] BUN/CREATININE RATIO 16 12 - 20 ratio 06/11/2022 2:10 PM CDT [facility] CALCIUM 9.5 8.9 - 10.3 mg/dL 06/11/2022 2:10 PM CDT [facility] GFR, ESTIMATED >60 >=60 06/11/2022 2:10 PM CDT [facility] Comment: Creatinine Clearance is the preferred criteria for selecting drug dose adjustments in renally impaired patients. The GFR is provided as additional pertinent clinical information. GFR is reported in mL/min/1.73 sq m. Calculation based on the Chronic Kidney Disease Epidemiology Collaboration (CKD- EPI) equation refit without adjustment for race. GFR, EST. >60 >=60 022 2:10 PM CDT [facility] GFR, EST. NONAFRICAN >60 >=60 06/11/2022 2:10 PM CDT [facility] Blood No Phlebotomy Charged / Unknown 06/11/2022 11:30 AM CDT 06/11/2022 1:25 PM CDT us Unknown Provider CHEMISTRY ORDERABLES Final Resu lt [facility] [address] [place] [address] documented in this encounter Visit Diagnoses Diagnosis Infection and inflammatory reaction due to other cardiac and vascular devices, implants and grafts, initial encounter documented in this encounter Additional Health Concerns Assessment Noted Time PHQ-9 Depression Total Score: 0 11/21/19 21 10:00 AM CDT documented as of this encounter Care Teams Silk Weaver Relationship Specialty Start Date End Date Staci Segura, REDUCING SALON ATTENDANT, SHIPPING WEIGHER [address] [place] [address] [phone] PCP - General Advanced Practice Nurse 11/20/20 Lauro Bowles MD [address] [address] Consulting Physician Cardiovascular Disease - Cardiology 04/16/22 10/27/24 Lexus Morrison APRN, ONCOLOGY REGISTRAR [address] [place] [address] Nurse Practitioner Advanced Practice Nurse 02/26/23 documented as of this encounter
--- OUTSIDE RECORDS SUMMARY | 2025-09-06 12:01 | XMS_ITS ---
Author Organization [facility] Care Team Providers Care Staff Counselor Name Role Phone Nicci Gibson Unavailable Unavailable Versluys, Janny Unavailable Unavailable Habib, Usman Unavailable Unavailable Bone, Emir Unavailable Unavailable Ampadu, Khoi Unavailable Unavailable Fahim, Magid Unavailable Unavailable Regan, Jade Unavailable Unavailable Allergies and adverse reactions No Known Allergies Care Team Name Role Address Phone Organization Dates Khoi Ampadu PCP [address] [place], [place], [facility], [place] (Office): : [facility] 01/18/2022 - 02/28/2022 Nicci Gibson [address] [facility] [address], [place], [facility], [facility] (Office): : [facility] 01/18/2022 - 02/28/2022 Janny Morganluys 550 [facility] [address], [place], [address], [place] (Office): : [facility] 01/18/2022 - 02/28/2022 Usman Habib [address] [place], [place], [facility], [facility] (Office): : : [facility] 01/18/2022 - 02/28/2022 Emir Bone [address], [place], [address], [place] (Office): : [facility] 01/18/2022 - 02/28/2022 [address], [place], [address], [place] (Office): : [facility] 01/18/2022 - 02/28/2022 Jade Spears [address], [place], [address], [place] (Office): : [facility] 01/18/2022 - 02/28/2022 Immunizations Immunization Status Vaccine [...] Other information Code: 2 Code System OID:[email or web address] [id number]. 3.221.5 Code System Name: Source of Payment Typology ([facility]) Display: Medicaid Translation : Code: 48 Code System: OID:2.16.84 [id number]. 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 3 DIFFICULTY IN WALKING, NOT ELSEWHERE CLASSIFIED [address] active 4 DYSPHAGIA FOLLOWING UNSPECIFIED CEREBROVASCULAR DISEASE [address] active 5 DYSPHAGIA, UNSPECIFIED [address] active 6 ESSENTIAL (PRIMARY) HYPERTENSION [address] active 7 HYPERLIPIDEMIA, UNSPECIFIED [address] active 8 INFECTION AND INFLAMMATORY REACTION DUE TO OTHER CARDIAC AND VASCULAR DEVICES, IMPLANTS AND GRAFTS, SUBSEQUENT ENCOUNTER [address] active 9 MAJOR DEPRESSIVE DISORDER, RECURRENT, UNSPECIFIED [address] active 10 MUSCLE WEAKNESS (GENERALIZED) [address] active 11 NEUROMUSCULAR DYSFUNCTION OF BLADDER, UNSPECIFIED [address] active 12 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 [address] active 13 OTHER RETENTION OF URINE [address] active 14 PERIPHERAL VASCULAR DISEASE, UNSPECIFIED [address] active 15 PERSONAL HISTORY OF TRANSIENT ISCHEMIC ATTACK (TIA), AND CEREBRAL INFARCTION WITHOUT RESIDUAL DEFICITS 2 01/21/[address] completed 16 SEPSIS, UNSPECIFIED ORGANISM [address] active 17 UNSPECIFIED LACK OF COORDINATION [address] active 18 UNSTEADINESS ON FEET [address] active 19 URINARY TRACT INFECTION, SITE NOT SPECIFIED [address] active 20 WEAKNESS [address] active Reason for Referral No Reasons for Referral Entered Social History Social History Observation Description Start Date End Date Code Code System Current Smoking Status Tobacco smoking consumption unknown 691907566 SNOMED CT Sex Assigned At Female 1970 92660-6 [facility] Gender Identity Sexual Orientation Vital Signs Code Code System Vitals Name Values and Units Timing Information 87474-8 [facility] Pain Level Value=0.0 02/28/2022 9279-1 [facility] Respiratory Rate Value=20.0 Units=/m in 02/28/2022 8462-4 [facility] Blood Pressure-Diastolic Value=72 Un its=mmHg 02/28/2022 8480-6 [facility] Blood Pressure-Systolic Cfbsj=525 Un its=mmHg 02/28/2022 8310-5 [facility] Body Temperature Value=97.8 Units= F 02/28/2022 8867-4 [facility] Heart rate Value=70.0 Units=/min 16423-0 [facility] Weight Furiz=511.0 Units=Lbs 99468-6 [facility] O2 % BldC Oximetry Value=98.0 Units= % 02/20/2022
--- OUTSIDE RECORDS SUMMARY | 2025-09-06 12:01 | XMS_ITS | Encounter Summary ---
Author Organization [facility] Address [address] [place] [address] Phone Care Team Providers Care Seed Potato Cutter Name Role Phone Staci Segura APRN, MARBLE INSTALLER Primary Care Prov ider Lauro Bowles MD Unavailable Lexus Long APRN, BUSINESS LAWYER Unavailable +1- [phone] Encounter Details Date Type Department Care Team (Late st Contact Info) Description 07/16/2022 [facility] Health [facility]um[facility]i on [facility] [address] [place] [address] Social History Tobacco Use Types Packs/Day Years [...] suspected to have Coronavirus/COVID-19? No / Unsure 07/19/2022 8:58 AM RACEBOOK WRITER documented as of this encounter Plan of Treatment Upcoming Encounters Date Type Department Care Team (Late st Contact Info) Description 12/12/2025 10:00 AM CDT Office Visit [facility] Neurology - [place] [address] [facility] [place] [address] Lexus Morrison APRN, BUSINESS LAWYER [address] [place] [address] 12/23/2025 8:00 AM CDT Office Visit [facility] Medical [facility] - Family Medicine [facility] [address] [facility] [address] Staci Segura APRN, MARBLE INSTALLER #[address] [address] documented as of this encounter Visit Diagnoses Not on filedocumented in this encounter Additional Health Concerns Assessment Noted Time PHQ-9 Depression Total Score: 0 11/21/19 21 10:00 AM CDT documented as of this encounter Care Teams Seed Potato Cutter Relationship Specialty Start Date End Date Staci Segura APRN, MARBLE INSTALLER [address] [address] PCP - General Advanced Practice Nurse 11/20/20 Lauro Bowles MD #[address] [address] Consulting Physician Cardiovascular Disease - Cardiology 04/16/22 10/27/24 Lexus Morrison APRN, BUSINESS LAWYER [address] [place] [address] Nurse Practitioner Advanced Practice Nurse 02/26/23 documented as of this encounter
--- OUTSIDE RECORDS SUMMARY | 2025-09-06 12:01 | XMS_ITS | Encounter Summary ---
Author Organization [facility] Address [address] [place] [address] Phone Care Team Providers Care Laborer Tanbark Name Role Phone Staci Segura APRN, CARDIAC REHABILITATION PROGRAM DIRECTOR Primary Care Prov ider Lauro Bowles MD Unavailable Lexus Long APRN, ELECTRIC MOTORMAN Unavailable [phone]- [phone] Reason for Visit * Reason Comments Medication Refill Encounter Details Date Type Department Care Team (Late st Contact Info) Description 02/17/2024 [facility]ill [facility] - [facility] Medicine - [place] [address] [place] [address] Staci Segura APRN, CARDIAC REHABILITATION PROGRAM DIRECTOR #[address] [address] Medication Refill Social History Tobacco Use Types Packs/Day Years Used Date Smoking Tobacco: Former Cigarettes 1 38 1 - 06/22/2020 Smokeless Tobacco: Never Alcohol Use Standard Drinks/Week Comments Not Currently 0 (1 standard drink = 0.6 oz pur e alcohol) [facility] Utilities Answer Date Recorded In the [...] declined 12/15/2023 How often do you attend christianity or mormon serv ices? Patient declined 12/15/2023 Do you belong to any clubs o r organizations such as christianity groups, unions, fraternal or athletic groups, or [...] Total Score - Questions 1-9 2 04/2024 [facility] of Occupat ional Health - Occupational Stress [...] place to sleep or slept in a long term (including now)? Patient declined 12/15/2023 Education Answer [...] encounter Miscellaneous Notes * Telephone Encounter - Nydia Avila RN - 02/17/2024 12:16 PM CDT Medication(s) [facility] Medication Refill Standing Order for Pediatricand Adult Patients. Requested Prescriptions Pending Prescriptions Disp Refills Klor-Con M20 20 MEQ Tablet Controlled Release [Pharmacy Med Name: KLOR-CON M20 TABLET] 90 Tablet 1 Sig: TAKE 1 TABLET BY MOUTH EVERY DAY Potassium Supplement Protocol Passed - 02/17/2024 8:24 AM Passed - Normal serum potassium in past 12 months POTASSIUM Date Value Ref Range Status 12/15/2023 3.9 3.5 - 5.1 mmol/L Final Passed - Visit with relevant provider in past 12 months or upcoming 90 days Recent Visits Date Type Provider Dept 12/15/23 Office Visit Staci Segura APRN, [facility] 09/12/23 Office Visit Staci Segura [facility], [facility] Showing recent visits within past 365 days and meeting all other requirements Future Appointments Date Type Provider Dept 04/15/24 Appointment Staci Segura APRN, [facility] Showing future appointments within next 90 days and meeting all other requirements documented in this encounter Plan of Treatment Upcoming Encounters Date Type Department Care Team (Late st Contact Info) Description 12/12/2025 10:00 AM CDT Office Visit [facility] Neurology - [place] [address] [facility] [place] [address] Lexus Morrison APRN, ELECTRIC MOTORMAN [address] [place] [address] 12/23/2025 8:00 AM CDT Office Visit [facility] Family Medicine [facility] [address] [place] [address] Staci Segura APRN, CARDIAC REHABILITATION PROGRAM DIRECTOR #[address] [address] documented as of this encounter Visit Diagnoses Diagnosis Hypokalemia Hypopotassemia documented in this encounter Additional Health Concerns Assessment Noted Time PHQ-9 Depression Total Score: 2 12/15/19 10:00 AM CDT documented as of this encounter Care Teams Laborer Tanbark Relationship Specialty Start Date End Date Staci Segura APRN, CARDIAC REHABILITATION PROGRAM DIRECTOR #[address] [address] PCP - General Advanced Practice Nurse 11/20/20 Lauro Bowles MD [address] [place] [address] Consulting Physician Cardiovascular Disease - Cardiology 04/16/22 10/27/24 Lexus Morrison APRN, ELECTRIC MOTORMAN #[address] [facility] [place] [address] Nurse Practitioner Advanced Practice Nurse 02/26/23 documented as of this encounter
--- OUTSIDE RECORDS SUMMARY | 2025-09-06 12:01 | XMS_ITS | Encounter Summary ---
Author Organization [facility] Address [address] [place] [address] Phone Care Team Providers Care Security System Technician Name Role Phone Staci Segura APRN, FINISHING AREA SUPERVISOR Primary Care Prov ider Lauro Bowles MD Unavailable Lexus Long APRN, SLURRY TANK TENDER Unavailable [phone]- [phone] Encounter Details Date Type Department Care Team (Late st Contact Info) Description 06/20/2022 [facility] [address] [place] [address] Shannan Alvarenga APN [address] [place] [address] Encounter for therapeutic drug level monitoring Social History Tobacco Use Types Packs/Day Years Used Date Smoking Tobacco: Former Cigarettes 1 38 1 - 06/22/2020 Smokeless Tobacco: Never Alcohol Use Standard Drinks/Week Comments Not Currently 0 (1 standard drink = 0.6 oz pur e alcohol) PHQ-2 Answer Date Recorded Total Score - Questions 1-9 0 01/2022 Sexually Active Control Partners Comments Not Currently Comments No Sex and Gender Information Value Date Recorded Sex Assigned at Female 04/22/2023 9:32 AM CDT Legal Sex Female 9:09 PM CDT Gender Identity Female 04/22/2023 9:32 AM CDT Sexual Orientation Not on file COVID-19 Exposure Response Date Recorded In the last 10 days, have queenie u been in contact with someone who was confirmed or suspected to have Coronavirus/COVID-19? No / Unsure 06/20/2022 10:13 AM CDT documented as of this encounter Plan of Treatment Upcoming Encounters Date Type Department Care Team (Late st Contact Info) Description 12/12/2025 10:00 AM CDT Office Visit [facility] - Neurology - [place] [address] [place] [address] Lexus Morrison, FLASK PUSHER, SLURRY TANK TENDER [address] [place] [address] 12/23/2025 8:00 AM CDT Office Visit [facility] Group - Family Medicine - [place] [address] [place] [address] Staci Segura, FLASK PUSHER, FINISHING AREA SUPERVISOR #[address] [address] documented as of this encounter Procedures Procedure Name Priority Date/Time Associated Diagnosis Comments HEPATIC FUNCTION PANEL Routine 06/18/2022 12:15 PM CDT Encounter for therapeutic drug level monitoring documented in this encounter Results * (ABNORMAL) HEPATIC FUNCTION PANEL (06/18/2022 12:15 PM CDT) T BILI <0.3 <=1.2 mg/dL 06/20/2022 8:47 AM CDT [facility] BILIRUBIN,DIRECT <0.3 <=0.3 mg/dL 06/20/2022 8:47 AM CDT [facility] ALKALINE PHOSPHATASE 136(H) 35 - 105 U/L 06/20/2022 8:47 AM CDT [facility] SGOT (AST) 9 <=32 U/L 06/20/2022 8:47 AM CDT [facility] SGPT (ALT) 7 <=41 U/L 06/20/2022 8:47 AM CDT [facility] TOTAL PROTEIN 6.2 6.0 - 8.3 g/dL 06/20/2022 8:47 AM CDT [facility] ALBUMIN 3.4(L) 3.5 - 5.2 g/dL 06/20/2022 8:47 AM CDT [facility] Comment: The colormetric methods used for the determination of Albumin may lead to falsely elevated test results in patients suffering from renal failure or insufficiency due to interference with other proteins. Blood No Phlebotomy Charged / Unknown 06/18/2022 12:15 PM CDT 06/20/2022 8:25 AM CDT us Shannan Alvarenga APN CHEMISTRY ORDERABLE S Final Result [facility] [address] [place] [address] documented in this encounter Visit Diagnoses Diagnosis Encounter for therapeutic drug level monitoring Encounter for therapeutic drug monitoring documented in this encounter Additional Health Concerns Assessment Noted Time PHQ-9 Depression Total Score: 0 11/21/19 21 10:00 AM CDT documented as of this encounter Care Teams Security System Technician Relationship Specialty Start Date End Date Staci Segura APRN, FINISHING AREA SUPERVISOR #[address] [address] PCP - General Advanced Practice Nurse 11/20/20 Lauro Bowles MD #[address] [address] Consulting Physician Cardiovascular Disease - Cardiology 04/16/22 10/27/24 Lexus Morrison APRN, SLURRY TANK TENDER [address] [place] [address] Nurse Practitioner Advanced Practice Nurse 02/26/23 documented as of this encounter
--- OUTSIDE RECORDS SUMMARY | 2025-09-06 12:01 | XMS_ITS | Encounter Summary ---
Author Organization [facility] Address [address] [place] [address] Phone Care Team Providers Care Desizing Machine Operator Name Role Phone Staci Segura APRN, ASSEMBLY MACHINE FEEDER Primary Care Prov ider Lauro Bowles MD Unavailable UnaLexus Suarez APRN, MANAGER CULINARY Unavailable [phone]- [phone] Reason for Visit * Reason Comments Medication Refill Encounter Details Date Type Department Care Team (Late st Contact Info) Description 07/20/2022 Refill [facility] - Neurology - [place] [address] [place] [address] Lexus Morrison, EYEGLASS FRAMES POLISHER, MANAGER CULINARY [address] [place] [address] Medication Refill Social History Tobacco Use Types [...] Coronavirus/COVID-19? No / Unsure 07/19/2022 8:58 AM WET MACHINE CUTTER documented as of this encounter Plan of Treatment Upcoming Encounters Date Type Department Care Team (Late st Contact Info) Description 12/12/2025 10:00 AM CDT Office Visit [facility] Neurology [facility] [address] [place] [address] Lexus Morrison APRN, MANAGER CULINARY [address] [place] [address] 12/23/2025 8:00 AM CDT Office Visit [facility] Family Medicine [facility] [address] [place] [address] Staci Segura APRN, ASSEMBLY MACHINE FEEDER #[address] [address] documented as of this encounter Visit Diagnoses Diagnosis Depression, unspecified depression type documented in this encounter Additional Health Concerns Assessment Noted Time PHQ-9 Depression Total Score: 0 11/21/19 21 10:00 AM CDT documented as of this encounter Care Teams Desizing Machine Operator Relationship Specialty Start Date End Date Staci Segura APRN, ASSEMBLY MACHINE FEEDER #[address] [address] PCP - General Advanced Practice Nurse 11/20/20 Lauro Bowles MD #[address] [address] Consulting Physician Cardiovascular Disease - Cardiology 04/16/22 10/27/24 Lexus Morrison APRN, MANAGER CULINARY [address] [place] [address] Nurse Practitioner Advanced Practice Nurse 02/26/23 documented as of this encounter
--- OUTSIDE RECORDS SUMMARY | 2025-09-06 12:01 | XMS_ITS | Clinical Summary ---
Author Organization [facility] Address [address] [place] [address] Phone Care Team Providers Care Coal Pulverizer Operator Name Role Phone Staci Segura APRN, FACILITATOR Primary Care Prov ider Lexus Morrison APRN, PAINTER ORDNANCE Unavailable [phone] Allergies No known active allergies Medications acetaminophen (TYLENOL) 325 MG Tablet Take 2 Tablets by mouth every 4 hours as needed for Mild or more severe pain. 120 Tablet 01/19/20 22 Active clopidogrel (PLAVIX) 75 MG Tablet Take 75 mg by mouth daily. 05/31/20 22 Active Multiple Vitamin (MULTIVITAMIN ADULT PO) Take 1 Tablet by mouth daily. [id number] Active levoFLOXacin (LEVAQUIN) 500 MG Tablet TAKE 1 TABLET (500 MG TOTAL) BY MOUTH DAILY. Active fluconazole (DIFLUCAN) 200 MG Tablet Take 400 mg by mouth daily. 02/19/20 24 Active doxycycline hyclate (VIBRAMYCIN) 100 MG Capsule Take 100 mg by mouth 2 times daily. Active ergocalciferol (VITAMIN D) 31375 UNIT CapsuleIndicati ons:Vitamin D deficiency Take 1 Capsule by mouth every 7 days. 12 Capsule 2 12/25/19 25 Active Eliquis 5 MG TabletIndicatio ns:Atrial Fibrillation Take 1 Tablet by mouth 2 times daily. Indications: Atrial Fibrillation 180 Tablet 1 04/11/20 25 Active potassium chloride SA (Klor-Con M20) 20 MEQ Tablet Controlled ReleaseIndicati ons:Hypokalemia Take 1 Tablet by mouth daily. 90 Tablet 1 06/20/20 25 Active oxybutynin (DITROPAN-XL) 5 MG TABLET SR 24 HRIndications:S tress incontinence Take 1 Tablet by mouth daily. 90 Tablet 3 06/20/20 25 Active atorvastatin (LIPITOR) 80 MG Tablet Take 1 Tablet by mouth daily. 90 Tablet 1 06/20/20 25 Active Escitalopram Oxalate 5 MG TabletIndicatio ns:Depression, unspecified depression type TAKE 1 TABLET BY MOUTH EVERY DAY 90 Tablet 1 08/19/20 25 Active Escitalopram Oxalate 5 MG TabletIndicatio ns:Depression, unspecified depression type TAKE 1 TABLET BY MOUTH EVERY DAY 90 Tablet 1 03/04/20 25 2024 Discontinued Active Problems Problem Noted Date Diagnosed Date Chronic bilateral low back pain with left-sided sciatica 02/18/2024 Overview (04/15/2024): Last Assessment & Plan: Condition: stable Source of diagnosis: Review of systems and Medication Follow up in: if symptoms worsen or fail to improve Infected prosthetic vascular graft, subsequent e ncounter 09/16/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 - Will continue with added doxycycline for now given pt reported improved redness once started. - Pt educated on need for chronic suppression. - Discussed need to seek dental care given significant dental decay and patient high risk of recurrent infection. - Labs today for monitoring: CBC, CMP - Discussed with patient the rational for treatment, culture results, risk of recurrent infection, signs/symptoms of recurrent infection, and to contact ID clinic with any questions or concerns. 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 OR cultures were positive for kirk and the pt was discharged on Micafungin 100 mg IV with a stop date of 07/05. The pt was seen in clinic today 07/04 and CTA showed large contained left groin PSA. She presents as a direct admit for further evaluation and surgical intervention. - Blood cultures from 07/04 no growth - OR 07/10/22 for L axillary-profunda bypass. L external iliac artery embolized with cessation of flow. 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 Flap takedown and replacement by plastic surgery. Antibiotic beads placed in LLE incision. - ID following: continue vanc/ ceftriaxone. OR cultures 07/10 with NGTD as of 07/15 am. Will likely continue current regimen at home. - PRS managing left groin Prevena and LUIS drain - Regular diet - Pain control - Continue asa while inpatient. Plan for Plavix/ Eliquis at discharge. - PT/OT/ OOB - Discharge planning for home Friday with HH and IV abx. Cellulitis of left lower extremity 01/16/2022 Tobacco abuse 01/13/2022 HLD (hyperlipidemia) 01/13/2022 PAD (peripheral artery disease) 01/13/2022 History of arterial occlusion 01/13/2022 Septicemia 01/13/2022 TIA (transient ischemic attack) 01/12/2022 Hypokalemia 01/12/2022 Rhabdomyolysis 01/12/2022 Hypertension 01/12/2022 Acute cystitis without hematuria 01/12/2022 Expressive language impairment 11/15/2020 Overview (12/05/2022): Last Assessment & Plan: Due to CVA. - Support as needed. Stroke 09/02/2020 Hemiplga following cerebral infrc aff right sammy nant side 09/02/2020 Overview (04/15/2024): Last Assessment & Plan: Condition: stable Source of diagnosis: Review of systems, Physical Exam and Diagnosis confirmed from PCP record and currently active Follow up in: if symptoms worsen or fail to improve Dyslipidemia 07/08/2016 Overview (12/05/2022): Last Assessment & Plan: On Atorvastatin Encounters Date Type Department Care Team Description 08/19/2025 Refill [facility] Neurology [facility] [address] [place] [address] Lexus Morrison APRN, PAINTER ORDNANCE Medication Refill 06/27/2025 Results Follow-Up [facility] [place] [address] [place] [address] Staci Segura APRN, FACILITATOR CMP (COMPREHENSIVE METABOLIC PANEL), VITAMIN B12, VITAMIN D, 25 HYDROXY TOTAL, Additional followed-up results: 3 06/24/2025 Travel 06/20/2025 8:00 AM CDT Office Visit [facility] [place] [address] [facility] [place] [address] Staci Segura APRN, FACILITATOR Primary hypertension (Primary Dx); Hypokalemia; Stress incontinence; Cerebrovascular accident (CVA), unspecified mechanism; Dyslipidemia; PAD (peripheral artery disease); Vitamin D deficiency Discharge Disposition: Discharged to home or Selfcare 06/20/2025 Travel from Last 3 Months Immunizations Immunization Administration Dates Next Due Covid-19, Mrna, Lnp-s, PF, 1 00 mcg/0.5 mL Dose (Moderna) 08/03/2021,07/10/2021 Influenza Vaccine, Quadrivalent, PF 06/12/2021 Influenza Vaccine,unspecified Formulation 2012 Influenza, High-dose, Quadrivalent 06/12/2021 Influenza, Seasonal, Injectable, Undefined 07/16 Influenza,Split Virus,Trivalent,Injectable,PF Pneumococcal conjugate PCV20 , polysaccharide [id number] conjugate, adjuvant, PF 06/20/2025 Family History Medical History Relation Name Comments Congestive Heart Failure Father Heart Attack Father Breast Cancer Sister Relation Name Status Comments Father Maternal Grandfather Maternal Grandmother Mother Alive Paternal Grandfather Paternal Grandmother Sister Alive Social History Tobacco Use Types Packs/Day Years Used Date Smoking Tobacco: Former Cigarettes 1 38.3 1 - 06/22/2020 Smokeless Tobacco: Never Tobacco Cessation:Counseling Given: No Alcohol Use Standard Drinks/Week Comments Not Currently 0 (1 standard drink = 0.6 oz pur e alcohol) [facility] Utilities Answer Date Recorded In the past [...] declined 12/15/2023 How often do you attend temple or sikhism serv ices? Patient declined 12/15/2023 Do you belong to any clubs o r organizations such as temple groups, unions, fraternal or athletic groups, or [...] Recorded Total Score - Questions 1-9 0 06/08 [facility] - Occupational Stress [...] place to sleep or slept in a skilled nursing (including now)? Patient declined 12/15/2023 Education Answer [...] AM CDT Sexual Orientation Not on file Last Filed Vital Signs Vital Sign Reading Time Taken Comments Blood Pressure 124/62 06/20/2025 7:43 AM CDT Pulse 72 06/20/2025 7:43 AM CDT Temperature 36.2 C (97.1 F) 06/20/2025 7:43 AM CDT Respiratory Rate 16 06/20/2025 7:43 AM CDT Oxygen Saturation 98% 06/20/2025 7:43 AM CDT Inhaled Oxygen Concentration - - Weight 93.9 kg (207 lb) 06/20/2025 7:43 AM CDT Height 165.1 cm (5' 5) 06/20/2025 7:43 AM CDT Body Mass Index 34.45 06/20/2025 7:43 AM CDT Plan of Treatment Upcoming Encounters Date Type Department Care Team (Late st Contact Info) Description 12/12/2025 10:00 AM CDT [facility] [place] [address] [place] [address] Lexus Morrison APRN, PAINTER ORDNANCE [address] [place] [address] 12/23/2025 8:00 AM CDT [facility] [place] [address] [place] [address] Staci Segura APRN, FACILITATOR [address] [address] Health Maintenance Due Date Last Done Comments Hepatitis C Virus (HCV) Screening 1971 TdaP Immunization 1971 Hepatitis B Immunization (1 of 3 - 19+ 3-dose series) 1990 Medicare Initial AWV [id number] 02/06/1995 Cologuard 2016 Colonoscopy 2016 Immunochemical Fecal Occult Blood 2016 Respiratory Syncytial Virus (RSV) Immunization (Adult) (1 - Risk 50-74 years 1-dose series) 2021 Zoster Immunization (1 of 2) 2021 Lung Cancer Screening 12/20/2025 11/08/2022 Postpo celeste from 11/09/2023 (Patient Temporarily Declines) Mammogram 03/22/2026 03/22/2025, 03/09/2024 Pap Smear 09/20/2027 09/20/2024, 12/24/2012, 12/14/2012 Cervical Cancer Screening (CCS) 09/20/2029 HPV/Cotest 09/20/2029 09/20/2024 SARS-COV-2 Immunization Discontinued 08/03/20, 08/03/2021, 07/10/2021, Additional history exists Discussion re Starting/Frequency of Mammograms Discontinued 03/22/2025, 12/16/2024, 04/23/2024, Additional history exists Influenza Immunization Completed , 06/12/2021, 06/12/2021, Additional history exists Pneumococcal Immunization (50+ years) Completed 06/20/2025 Pneumococcal Immunization Combined Discontinued 06/20/2025 Colorectal Cancer Screening Discontinued Human Papillomavirus (HPV) Immunization (No Doses Required) Completed Meningococcal Immunization (ACWY) Aged Out No longer eligible based on patient's age to complete this topic Rotavirus Immunization Aged Out No lo nger eligible based on patient's age to complete this topic Procedures Procedure Name Priority Date/Time Associated Diagnosis Comments THYROID SCREEN WITH REFLEX Routine 06/24/2025 7:52 AM CDT Primary hypertension Cerebrovascular accident (CVA), unspecified mechanism CBC WITH AUTO DIFFERENTIAL Routine 06/24/2025 7:52 AM CDT Primary hypertension Cerebrovascular accident (CVA), unspecified mechanism PAD (peripheral artery disease) LIPID PANEL Routine 06/24/2025 7:52 AM CDT Primary hypertension Cerebrovascular accident (CVA), unspecified mechanism PAD (peripheral artery disease) THYROID SCREEN WITH REFLEX Routine 06/24/2025 7:52 AM CDT Primary hypertension Cerebrovascular accident (CVA), unspecified mechanism VITAMIN D, 25 HYDROXY TOTAL Routine 06/24/2025 7:52 AM CDT Vitamin D deficiency VITAMIN B12 Routine 06/24/2025 7:52 AM CDT Primary hypertension Cerebrovascular accident (CVA), unspecified mechanism COMPLETE BLOOD COUNT (CBC) WITH DIFF Routine 06/24/2025 7:52 AM CDT Primary hypertension Cerebrovascular accident (CVA), unspecified mechanism PAD (peripheral artery disease) CMP (COMPREHENSIVE METABOLIC PANEL) Routine 06/24/2025 7:52 AM CDT Hypokalemia Primary hypertension Cerebrovascular accident (CVA), unspecified mechanism PAD (peripheral artery disease) NIKKI DIAG BILATERAL DIGITAL W CAD W PELON Routine 03/22/2025 1:07 PM CDT Abnormal mammogram HUMAN PAPILLOMA VIRUS (HPV) Routine 09/20/2024 1:44 PM LINING STUFFER Encounter for gynecological examination without abnormal finding Encounter for screening for human papillomavirus (HPV) PATHOLOGY CYTOLOGY WORKERS COMPENSATION ADJUSTER Routine 09/20/2024 1:44 PM LINING STUFFER Encounter for gynecological examination without abnormal finding from Last 3 Months or Most Recently Relevant to Health Maintenance Results * VITAMIN D, 25 HYDROXY TOTAL (06/24/2025 7:52 AM CDT) VITAMIN D, 25 HYDROX 34.3 ng/mL 06/24/2025 10:08 AM CDT [facility] Blood Venipuncture / Unknown 06/24/2025 7:52 AM CDT 06/24/2025 8:43 AM CDT Narrative [facility] - 06/24/2025 10:08 AM CDT Published reference ranges for Vitamin D vary depending on time and place and method of testing, and on patient's age, sex, ethnicity and levels of other measured analytes such as parathormone, calcium and phosphorus. The result should be evaluated in conjunction with clinical findings and suspicions. [facility] [employer] and Endocrine Clinical Practice Guidelines: Status Vitamin D levels (ng/mL) Deficient <=20 At risk of inadequacy 21-29 Sufficient 30-100 Centers of Disease Control and Prevention Guidelines: Status Vitamin D levels (ng/mL) Deficient <13 At risk of inadequacy 13-19 Sufficient 20-50 Possibly harmful >50 References: [employer], 2010 Dietary reference intakes for calcium and vitamin D. [place]: The National Academies Press. Ayaz M, David N, Germaine MCCARTHY, et al., Evaluation, treatment, and prevention of Vitamin D deficiency: an Endocrinology Clinical Practice Guideline. JCEM 2011 96: 7 1654-4790. Beatrice A, Estuardo C, Bobby D, et al., Vitamin D Status: [place], , [facility] data brief, no. [id number], MD [place]iss[place]: Formerly [facility] for [facility] Statistics. 2011. Staci Segura APRN, FACILITATOR CHEMISTRY ORDERABL ES Final Result Performing Organization Address City/[facility]/ZIP Co de Phone Number [facility] [address] [place] [address] * THYROID SCREEN WITH REFLEX (06/24/2025 7:52 AM CDT) Pathologist [facility] TSH 1.506 0.300 - 5.000 mIU/L 06/24/2025 10:02 AM CDT [facility] Blood Venipuncture / Unknown 06/24/2025 7:52 AM CDT 06/24/2025 8:43 AM CDT Staci Segura APRN, FACILITATOR CHEMISTRY ORDERABL ES Final Result Performing Organization Address City/[facility]/ZIP Co de Phone Number [facility] [address] [place] [address] * (ABNORMAL) CBC WITH AUTO DIFFERENTIAL (06/24/2025 7:52 AM CDT) WBC 10.73 4.00 - 12.00 10(3)/mcL 06/24/2025 8:49 AM CDT [facility] RBC 4.76 3.80 - 5.30 10(6)/mcL 06/24/2025 8:49 AM CDT [facility] HEMOGLOBIN (HGB) 14.4 12.0 - 15.8 g/dL 06/24/2025 8:49 AM CDT [facility] HEMATOCRIT (HCT) 43.4 36.0 - 47.0 % 06/24/2025 8:49 AM CDT [facility] MCV 91.2 82.0 - 96.0 fL 06/24/2025 8:49 AM CDT [facility] MCH 30.3 26.0 - 34.0 pg 06/24/2025 8:49 AM CDT [facility] MCHC 33.2 31.0 - 36.0 g/dL 06/24/2025 8:49 AM CDT [facility] PLATELET COUNT 182 140 - 440 10(3)/mcL 06/24/2025 8:49 AM CDT [facility] RDW 14.7 11.8 - 15.5 % 06/24/2025 8:49 AM CDT [facility] MPV 11.7 9.7 - 12.4 fL 06/24/2025 8:49 AM CDT [facility] NEUTROPHILS 52.0 47.0 - 73.0 % 06/24/2025 8:49 AM CDT [facility] LYMPHOCYTES 34.8 18.0 - 42.0 % 06/24/2025 8:49 AM CDT [facility] MONOCYTES 7.5 4.0 - 12.0 % 06/24/2025 8:49 AM CDT [facility] EOSINOPHILS 4.7 0.0 - 5.0 % 06/24/2025 8:49 AM CDT [facility] BASOPHILS 0.7 0.0 - 1.0 % 06/24/2025 8:49 AM CDT [facility] IMMATURE GRANULOCYTE 0.3 0.0 - 0.4 % 06/24/2025 8:49 AM CDT [facility] ABSOLUTE NEUTROPHILS 5.60 1.60 - 7.70 10(3)/mcL 06/24/2025 8:49 AM CDT [facility] ABSOLUTE LYMPHOCYTES 3.73(H) 1.30 - 3.20 10(3)/mcL 06/24/2025 8:49 AM CDT [facility] ABSOLUTE MONOCYTES 0.80 0.20 - 1.00 10(3)/mcL 06/24/2025 8:49 AM CDT [facility] ABSOLUTE EOSINOPHIL 0.50(H) 0.00 - 0.40 10(3)/mcL 06/24/2025 8:49 AM CDT [facility] ABSOLUTE BASOPHILS 0.07 0.00 - 0.10 10(3)/mcL 06/24/2025 8:49 AM CDT [facility] ABSOLUTE IMMATURE GRANULOCYTE 0.03 0.00 - 0.03 10 (3) mcL. 06/24/2025 8:49 AM CDT [facility] NRBC PER 100 WBC 0 06/24/20 8:49 AM CDT [facility] Blood Venipuncture / Unknown 06/24/2025 7:52 AM CDT 06/24/2025 8:43 AM CDT us Staci Segura APRN, FACILITATOR HEMATOLOGY ORDERAB LES Final Result [facility] [address] [place] [address] * VITAMIN B12 (06/24/2025 7:52 AM CDT) VITAMIN B12 421 213 - 816 pg/mL 06/24/2025 10:08 AM CDT [facility] Blood Venipuncture / Unknown 06/24/2025 7:52 AM CDT 06/24/2025 8:43 AM CDT us Staci Segura PRINTER TECHNICIAN, FACILITATOR CHEMISTRY ORDERABL ES Final Result Performing Organization Address City/[facility]/ZIP Co de Phone Number [facility] [address] [place] [address] * (ABNORMAL) LIPID PANEL (06/24/2025 7:52 AM CDT) CHOLESTEROL 123 <200 mg/dL 06/24/2025 9:[address] [facility] TRIGLYCERIDES 127 <150 mg/dL 06/24/2025 9:[address] [facility] HDL CHOLESTEROL 29(L) >40 mg/dL 9:[address] [facility] LDL 69 <130 mg/dL 06/24/2025 9:[address] [facility] VLDL 25 10 - 50 mg/dL 06/24/2025 9:[address] [facility] CHOL/HDL RATIO 4.2 0.0 - 4.4 06/24/2025 9:[address] [facility] NON-HDL CHOLESTEROL 94 <130 mg/dL 06/24/2025 9:[address] [facility] IS THE PATIENT REQUIRED TO BE FASTING? Yes 06/24/2025 9:[address] [facility] HAS THE PATIENT BEEN FASTING? Yes 06/24/2025 9:[address] [facility] Blood Venipuncture / Unknown 06/24/2025 7:52 AM CDT 06/24/2025 8:[address] [facility] - 06/24/2025 9:56 AM CDT NCEP GUIDELINES FOR LIPID INTERPRETATION TOTAL CHOLESTEROL DESIRABLE <200 BORDERLINE 200-239 HIGH >=240 LDL CHOLESTEROL OPTIMAL <100 NEAR OPTIMAL 100-129 BORDERLINE 130-159 HIGH 160-189 VERY HIGH >=190 Calculated using the Friedewald equation. HDL CHOLESTEROL LOW <40 *HIGH >=60 TRIGLYCERIDES NORMAL <150 BORDERLINE 150-199 HIGH 200-499 VERY HIGH >=500 VLDL calculated using Triglycerides/5. *HDL CHOLESTEROL >=60 mg/dL counts as a negative risk factor; its presence removes one risk factor from the total. Based on guidelines from the National Cholesterol Education Program, desirable levels for non HDL cholesterol are 30 mg/dL above target levels for LDL cholesterol. us Staci Segura PRINTER TECHNICIAN, MACIEL CHEMISTRY ORDERABL ES Final Result [facility] [address] [place] [address] * (ABNORMAL) CMP (COMPREHENSIVE METABOLIC PANEL) (06/24/2025 7:52 AM CDT) SODIUM 143 136 - 145 mmol/L 06/24/2025 9:[address] [facility] POTASSIUM 3.5 3.5 - 5.1 mmol/L 06/24/2025 9:[address] [facility] CHLORIDE 107 98 - 107 mmol/L 06/24/2025 9:[address] [facility] CO2, VENOUS 26 22 - 30 mmol/L 06/24/2025 9:[address] [facility] ANION GAP 13.5 <18.0 mmol/L 06/24/2025 9:[address] [facility] GLUCOSE 86 70 - 99 mg/dL 06/24/2025 9:[address] [facility] BUN 15 10 - 20 mg/dL 06/24/2025 9:[address] [facility] CREATININE, BLOOD 1.14(H) 0.60 - 1.00 mg/dL 06/24/2025 9:[address] [facility] BUN/CREATININE RATIO 13 12 - 20 ratio 06/24/2025 9:[address] [facility] TOTAL PROTEIN 6.3 6.0 - 8.0 g/dL 06/24/2025 9:[address] [facility] ALBUMIN 3.9 3.5 - 5.0 g/dL 06/24/2025 9:[address] [facility] A/G RATIO 1.6 1.0 - 2.2 06/24/2025 9:[address] [facility] CALCIUM 9.2 8.7 - 10.5 mg/dL 06/24/2025 9:56 AM CDT [facility] T BILI 0.3 0.2 - 1.2 mg/dL 06/24/2025 9:56 AM CDT [facility] SGOT (AST) 19 <43 U/L 06/24/2025 9:56 AM CDT [facility] SGPT (ALT) 18 <56 U/L 06/24/2025 9:56 AM CDT [facility] ALKALINE PHOSPHATASE 170(H) 40 - 150 U/L 06/24/2025 9:56 AM CDT [facility] IS THE PATIENT REQUIRED TO BE FASTING? No 06/24/2025 9:56 AM CDT [facility] GFR, ESTIMATED 58(L) >=60 06/24/2025 9:56 AM CDT [facility] Comment: Creatinine Clearance is the preferred criteria for selecting drug dose adjustments in renally impaired patients. The GFR is provided as additional pertinent clinical information. GFR is reported in mL/min/1.73 sq m. Calculation based on the 2020 Chronic Kidney Disease Epidemiology Collaboration (CKD-EPI) equation refit without adjustment for race. GFR, EST. 60 >=60 9:[address] [facility] Comment: Creatinine Clearance is the preferred criteria for selecting drug dose adjustments in renally impaired patients. The GFR is provided as additional pertinent clinical information. GFR is reported in mL/min/1.73 sq m. Calculation based on the 2009 Chronic Kidney Disease Epidemiology Collaboration (CKD-EPI). GFR, EST. NONAFRICAN 50(L) >=60 06/24/2025 9:56 AM CDT [facility] Comment: Creatinine Clearance is the preferred criteria for selecting drug dose adjustments in renally impaired patients. The GFR is provided as additional pertinent clinical information. GFR is reported in mL/min/1.73 sq m. Calculation based on the 2009 Chronic Kidney Disease Epidemiology Collaboration (CKD-EPI). Blood Venipuncture / Unknown 06/24/2025 7:52 AM CDT 06/24/2025 8:43 AM CDT us Staci Quijano Colton PRINTER TECHNICIAN, FACILITATOR CHEMISTRY ORDERABL ES Final Result [facility] [address] [place] [address] * NIKKI DIAG BILATERAL DIGITAL W CAD W PELON (03/22/2025 1:07 PM CDT) Anatomical Region Laterality Modality breast Bilateral Mammography 03/22/2025 12:2 0 PM CDT Narrative 03/23/2025 10:36 AM CDT - NIKKI DIAG BILATERAL DIGITAL W CAD W PELON - NIKKI US BREAST LIMITED LT BILATERAL DIGITAL DIAGNOSTIC MAMMOGRAM 3D/2D WITH CAD WITH MEDIOLATERAL OBLIQUE CRANIOCAUDAL AND LEFT ULTRASOUND: 03/22/2025 The study was acquired using digital technology and interpreted from soft copy. Current study was also evaluated with SocialShieldD version 7.2. 2D digital mammographic views, as well as 3D digital tomosynthesis were performed in the CC and MLO projections. CLINICAL: Patient returns for a 1 year follow-up left breast. Annual right breast. She has limited range of motion especially on the left shoulder. No personal history of cancer. Sister with postmenopausal breast cancer. COMPARISONS: Comparison is made to exams dated: 12/16/2024, 12/16/2024, 04/23/2024, [facility] BREAST TISSUE:There are scattered areas of fibroglandular density. FINDINGS: BILATERAL DIAGNOSTIC MAMMOGRAM: There is a stable mass at the 1 o'clock position of the left breast anteriorly. No other significant masses or calcifications are seen in either breast on the mammogram. Further evaluation was obtained with sonography. TARGETED LEFT BREAST ULTRASOUND: At the 4 o'clock position of the left breast, 1 cm from the nipple, an elongated hypoechoic focus is again seen. There is some internal vascularity and a mural nodule. This may be vascular. This lesion measures 0.9 x 0.7 x 0.4 cm, previously 1.2 x 0.9 x 0.4 cm. This will continue to be classified as probably benign. IMPRESSION: OVERALL STUDY BIRADS: CATEGORY 3: PROBABLY BENIGN Lesion in the left breast continue to be classified as probably benign. A follow-up mammogram and an ultrasound in 12 months are recommended. The results and recommendations were discussed with the patient. Electronically signed by: Tha Natarajan M.D. ll/:03/22/2025 13:45:46 [place] Laborer(s): Nanda Hardin, NAY OBGYN, [facility]; RT Ld(R)(M), [facility] letter sent: Birad 3 Followup Reading location: [facility] [place] OVERALL STUDY BIRADS: Category 3: Probably Benign Procedure Note Tha Natarajan MD - 03/23/2025 - NIKKI DIAG BILATERAL DIGITAL W CAD W PELON - NIKKI US BREAST LIMITED LT BILATERAL DIGITAL DIAGNOSTIC MAMMOGRAM 3D/2D WITH CAD WITH MEDIOLATERAL OBLIQUE CRANIOCAUDAL AND LEFT ULTRASOUND: 03/22/2025 The study was acquired using digital technology and interpreted from soft copy. Current study was also evaluated with ICAD version 7.2. 2D digital mammographic views, as well as 3D digital tomosynthesis were performed in the CC and MLO projections. CLINICAL: Patient returns for a 1 year follow-up left breast. Annual right breast. She has limited range of motion especially on the left shoulder. No personal history of cancer. Sister with postmenopausal breast cancer. COMPARISONS: Comparison is made to exams dated: 12/16/2024, 12/16/2024, 04/23/2024, and 03/09/2024 [facility]. BREAST TISSUE:There are scattered areas of fibroglandular density. FINDINGS: BILATERAL DIAGNOSTIC MAMMOGRAM: There is a stable mass at the 1 o'clock position of the left breast anteriorly. No other significant masses or calcifications are seen in either breast on the mammogram. Further evaluation was obtained with sonography. TARGETED LEFT BREAST ULTRASOUND: At the 4 o'clock position of the left breast, 1 cm from the nipple, an elongated hypoechoic focus is again seen. There is some internal vascularity and a mural nodule. This may be vascular. This lesion measures 0.9 x 0.7 x 0.4 cm, previously 1.2 x 0.9 x 0.4 cm. This will continue to be classified as probably benign. IMPRESSION: OVERALL STUDY BIRADS: CATEGORY 3: PROBABLY BENIGN Lesion in the left breast continue to be classified as probably benign. A follow-up mammogram and an ultrasound in 12 months are recommended. The results and recommendations were discussed with the patient. Electronically signed by: Tha Natarajan M.D. ll/:03/22/2025 13:45:46 [place] Laborer(s): Nanda Hardin RDMS OBGYN, [facility]; Marlene Rocha, (R)(M), [facility] letter sent: Birad 3 Followup Reading location: [facility] [place] OVERALL STUDY BIRADS: Category 3: Probably Benign us Staci Segura APRN, MACIEL IMG MAMMO ORDERABL ES Final Result * PATHOLOGY CYTOLOGY WORKERS COMPENSATION ADJUSTER (09/20/2024 1:44 PM LINING STUFFER) SPECIMEN ADEQUACY Satisfactory for evaluation. 09/28/2024 12:30 PM LINING STUFFER [facility] DESCRIPTIVE DIAGNOSIS NEGATIVE FOR INTRAEPITHELIAL LESIONS OR MALIGNANCY. 09/28/2024 12:30 PM LINING STUFFER [facility] at 1230 LINING STUFFER OTHER FINDINGS Atrophic hormonal pattern. 09/28/2024 12:30 PM LINING STUFFER [facility] Automated Examination Analysis of this sample has been assisted by an automated imaging and review system ([employer] Imaging System, [employer], [place], [place]). This case is further evaluated and finalized by a forensic document examiner and/or pathologist. 09/28/2024 12:30 PM LINING STUFFER [facility] Disclaimer The PAP smear is a screening test designed to detect cancerous or precancerous cells of the uterine cervix. It is one of the best means available for detection of cervical cancer but still carries an inherent false-negative rate. The consequences of a false-negative PAP result can be minimized by adhering to current screening guidelines. The following are general guidelines recommended by the ACS, ASCP, ASCCP, and ACOG: PAP testing is recommended every three years for women 21-29, Co-Testing, a PAP test in conjunction with an HPV (Human Papillomavirus) test for women ages 30-65, and no PAP or HPV testing for women under the age of 21 or older than 65 unless clinically indicated. 09/28/2024 12:30 PM LINING STUFFER [facility] Case Report Gynecologic Cytology Report Case: [id number] Authorizing Provider: Staci Segura APRN, Collected: 09/20/2024 01:44 PM MACIEL Ordering Location: [facility] - [facility] [place] Received: 09/20/2024 01:44 PM Medicine - [place] First Screen: Batsheva Sloan Specimen: TP Screen, Cervix/Endocervix/V aginal 09/28/2024 12:30 PM LINING STUFFER [facility] Other (Cervix/Endocerv ix/Vaginal) Non-Phlebotomy Collection / Unknown 09/20/2024 1:44 PM LINING STUFFER 09/20/2024 1:44 PM LINING STUFFER us Staci Segura APRN, MACIEL PATHOLOGY/CYTOLOGY ORDERABLES Final Result Performing Organization Address City/State/[facility] Co de Phone Number [facility] [address] [place] [address], [place] * HUMAN PAPILLOMA VIRUS (HPV) (09/20/2024 1:44 PM LINING STUFFER) HPV TYPE 16 NEGATIVE NEGATIVE 09/21/2024 11:42 AM LINING STUFFER [facility] Comment: A negative high-risk HPV result does not exclude the possibility of future cytologic HSIL or underlying CIN2-3 or cancer. The presence of PCR inhibitors may cause false negative or invalid results. If concentrations of whole blood in the sample exceed 10% (dark red or brown coloration) in PreservCyt solution, there is a likelihood of obtaining a false-negative result. HPV TYPE 18 NEGATIVE NEGATIVE 09/21/2024 11:42 AM LINING STUFFER [facility] Comment: A negative high-risk HPV result does not exclude the possibility of future cytologic HSIL or underlying CIN2-3 or cancer. The presence of PCR inhibitors may cause false negative or invalid results. If concentrations of whole blood in the sample exceed 10% (dark red or brown coloration) in PreservCyt solution, there is a likelihood of obtaining a false-negative result. HPV OTHER HIGH RISK TYPES, PCR NEGATIVE NEGATIVE 09/21/2024 11:42 AM LINING STUFFER [facility] Comment: The following Other High Risk types were not detected: 31, 33, 35, 39, 45, 51, 52, 56, 58, 59, 66, and 68. A negative high-risk HPV result does not exclude the possibility of future cytologic HSIL or underlying CIN2-3 or cancer. The presence of PCR inhibitors may cause false negative or invalid results. If concentrations of whole blood in the sample exceed 10% (dark red or brown coloration) in PreservCyt solution, there is a likelihood of obtaining a false-negative result. HPV ORDER BE USED FOR SCREENING OR DIAGNOSTIC SCREENING 09/21/2024 11:[address] [facility] Other Non-Phlebotomy Collection / Unknown 09/20/2024 1:44 PM LINING STUFFER 09/20/2024 1:44 PM LINING STUFFER Narrative [facility] - 09/21/2024 11:42 AM LINING STUFFER This test was performed using DELLA 5800 Real Time PCR. Staci Segura APRN, CNP LAB SEND OUTS [facility] Result [facility] [address] [place] [address], [facility] [address] [place] [address] from Last 3 Months or Most Recently Relevant to Health Maintenance Insurance MEDICARE C [place] Advance Directives * Full Code (Latest Code Status on File) Date Activated Date Inactivated Comments 06/28/2022 11:24 AM * Full Code Date Activated Date Inactivated Comments 01/12/2022 4:23 PM 01/18/2022 6:53 PM CPR-Full Tea tment: FULL ARREST: Attempt Resuscitation/CPR wit intubation and mechanical ventilation. PRE-ARREST: Use entire range of life support measures to stabilize the patient. Care Teams Coal Pulverizer Operator Relationship Specialty Start Date End Date Staci Segura, PRINTER TECHNICIAN, FACILITATOR #[address] [address] PCP - General Advanced Practice Nurse 11/20/20 Lexus Morrison APRN, PAINTER ORDNANCE [address] [place] [address] Nurse Practitioner Advanced Practice Nurse 02/26/23
--- OUTSIDE RECORDS SUMMARY | 2025-09-06 12:01 | XMS_ITS | Encounter Summary ---
Author Organization [facility] Address [address] [place] [address] Phone Care Team Providers Care Warehouse Unloader Name Role Phone Staci Segura APRN, TAG MARKER Primary Care Prov ider Lauro Bowles MD Unavailable Lexus Long APRN, FUNDRAISING SALE REPRESENTATIVE Unavailable [phone] Encounter Details Date Type Department Care Team (Late st Contact Info) Description 06/18/2022 Lab [facility] [address] [place] [address] Provider, Not On File [place] Infection and inflammatory reaction due to other cardiac and vascular devices, implants and grafts, sequela Social History Tobacco Use Types Packs/Day Years [...] Description 12/12/2025 10:00 AM CDT [facility] [place] [address] [place] [address] Lexus Morrison, SHIPFITTER HELPER, FUNDRAISING SALE REPRESENTATIVE [address] [place] [address] 12/23/2025 8:00 AM CDT Office Visit [facility] - Family Medicine - [place] [address] [place] [phone] Staci Segura, SHIPFITTER HELPER, TAG MARKER [address] [phone] documented as of this encounter Procedures Procedure Name Priority Date/Time Associated Diagnosis Comments CBC WITH AUTO DIFFERENTIAL Routine 06/18/2022 12:15 PM CDT Infection and inflammatory reaction due to other cardiac and vascular devices, implants and grafts, sequela COMPLETE BLOOD COUNT (CBC) WITH DIFF Routine 06/18/2022 12:15 PM CDT Infection and inflammatory reaction due to other cardiac and vascular devices, implants and grafts, sequela BASIC METABOLIC PANEL W/ CALCIUM TOTAL Routine 06/18/2022 12:15 PM CDT Infection and inflammatory reaction due to other cardiac and vascular devices, implants and grafts, sequela documented in this encounter Results * (ABNORMAL) CBC WITH AUTO DIFFERENTIAL (06/18/2022 12:15 PM CDT) WBC 9.78 4.00 - 12.00 10(3)/mcL 06/18/2022 1:34 PM CDT [facility] RBC 3.34(L) 3.80 - 5.30 10(6)/mcL 06/18/2022 1:34 PM CDT [facility] HEMOGLOBIN (HGB) 8.9(L) 12.0 - 15.8 g/dL 06/18/2022 1:34 PM CDT [facility] HEMATOCRIT (HCT) 29.0(L) 36.0 - 47.0 % 06/18/2022 1:34 PM CDT [facility] MCV 86.8 82.0 - 96.0 fL 06/18/2022 1:34 PM CDT [facility] MCH 26.6 26.0 - 34.0 pg 06/18/2022 1:34 PM CDT [facility] MCHC 30.7(L) 31.0 - 36.0 g/dL 06/18/2022 1:34 PM CDT [facility] PLATELET COUNT 300 140 - 440 10(3)/mcL 06/18/2022 1:34 PM CDT [facility] RDW 15.9(H) 11.8 - 15.5 % 06/18/2022 1:34 PM CDT [facility] MPV 10.9 9.7 - 12.4 fL 06/18/2022 1:34 PM CDT [facility] NEUTROPHILS 56.9 47.0 - 73.0 % 06/18/2022 1:34 PM CDT [facility] LYMPHOCYTES 22.3 18.0 - 42.0 % 06/18/2022 1:34 PM CDT [facility] MONOCYTES 9.5 4.0 - 12.0 % 06/18/2022 1:34 PM CDT [facility] EOSINOPHILS 10.7(H) 0.0 - 5.0 % 06/18/2022 1:34 PM CDT [facility] BASOPHILS 0.6 0.0 - 1.0 % 06/18/2022 1:34 PM CDT [facility] ABSOLUTE NEUTROPHILS 5.56 1.60 - 7.70 10(3)/mcL 06/18/2022 1:34 PM CDT [facility] ABSOLUTE LYMPHOCYTES 2.18 1.30 - 3.20 10(3)/[facility] 06/18/2022 1:34 PM CDT [facility] ABSOLUTE MONOCYTES 0.93 0.20 - 1.00 10(3)/[facility] 06/18/2022 1:34 PM CDT [facility] ABSOLUTE EOSINOPHIL 1.05(H) 0.00 - 0.40 10(3)/[facility] 06/18/2022 1:34 PM CDT [facility] ABSOLUTE BASOPHILS 0.06 0.00 - 0.10 10(3)/[facility] 06/18/2022 1:34 PM CDT [facility] NRBC PER 100 WBC 0 06/18/20 1:34 PM CDT [facility] Blood No Phlebotomy Charged / Unknown 06/18/2022 12:15 PM CDT 06/18/2022 1:29 PM CDT us Not On File Provider HEMATOLOGY ORDERABLES Final Result [facility] [address] [place] [address] * (ABNORMAL) BASIC METABOLIC PANEL W/ CALCIUM TOTAL (06/18/2022 12:15 PM CDT) SODIUM 141 136 - 144 mmol/L 06/18/2022 2:01 PM CDT [facility] POTASSIUM 3.2(L) 3.5 - 5.1 mmol/L 06/18/2022 2:01 PM CDT [facility] CHLORIDE 106 100 - 110 mmol/L 06/18/2022 2:01 PM CDT [facility] CO2, VENOUS 25 22 - 32 mmol/L 06/18/2022 2:01 PM CDT [facility] ANION GAP 13.2 8.0 - 20.0 mmol/L 06/18/2022 2:01 PM CDT [facility] GLUCOSE 102(H) 70 - 99 mg/dL 06/18/2022 2:01 PM CDT [facility] BUN 10 6 - 20 mg/dL 06/18/2022 2:01 PM CDT [facility] CREATININE, BLOOD 0.65 0.60 - 1.10 mg/dL 06/18/2022 2:01 PM CDT [facility] BUN/CREATININE RATIO 15 12 - 20 ratio 06/18/2022 2:01 PM CDT [facility] CALCIUM 9.2 8.9 - 10.3 mg/dL 06/18/2022 2:01 PM CDT [facility] GFR, ESTIMATED >60 >=60 06/18/2022 2:01 PM CDT [facility] Comment: Creatinine Clearance is the preferred criteria for selecting drug dose adjustments in renally impaired patients. The GFR is provided as additional pertinent clinical information. GFR is reported in mL/min/1.73 sq m. Calculation based on the Chronic Kidney Disease Epidemiology Collaboration (CKD- EPI) equation refit without adjustment for race. GFR, EST. >60 >=60 022 2:01 PM CDT [facility] GFR, EST. NONAFRICAN >60 >=60 06/18/2022 2:01 PM CDT [facility] Blood No Phlebotomy Charged / Unknown 06/18/2022 12:15 PM CDT 06/18/2022 1:29 PM CDT us Not On File Provider CHEMISTRY ORDERABLES Final Result [facility] [address] [place] [address] documented in this encounter Visit Diagnoses Diagnosis Infection and inflammatory reaction due to other cardiac and vascular devices, implants and grafts, sequela documented in this encounter Additional Health Concerns Assessment Noted Time PHQ-9 Depression Total Score: 0 11/21/19 21 10:00 AM CDT documented as of this encounter Care Teams Warehouse Unloader Relationship Specialty Start Date End Date Staci Segura, SHIPFITTER HELPER, TAG MARKER #[address] [phone] PCP - General Advanced Practice Nurse 11/20/20 Lauro Bowles MD #[address] [address] Consulting Physician Cardiovascular Disease - Cardiology 04/16/22 10/27/24 Lexus Morrison, SHIPFITTER HELPER, FUNDRAISING SALE REPRESENTATIVE [address] [place] [address] Nurse Practitioner Advanced Practice Nurse 02/26/23 documented as of this encounter
--- OUTSIDE RECORDS SUMMARY | 2025-09-06 12:01 | XMS_ITS | Encounter Summary ---
Author Organization [facility] Address [address] [place] [address] Phone Care Team Providers Care Orchestra Musician Name Role Phone Staci Segura APRN, LICENSED PLUMBER Primary Care Prov ider Lauro Bowles MD Unavailable UnaLexus Suarez APRN, CONSTRUCTION ENGINEERING MANAGER Unavailable [phone] Reason for Visit * Reason Comments Medication Refill Encounter Details Date Type Department Care Team (Late st Contact Info) Description 06/25/2022 Refill [facility] - Neurology - [place] [address] [place] [address] Lexus Morrison, SILVER MINER BLASTING, CONSTRUCTION ENGINEERING MANAGER [address] [place] [address] Medication Refill Social History Tobacco Use Types [...] suspected to have Coronavirus/COVID-19? No / Unsure 06/27/2022 11:08 AM CDT documented as of this encounter Plan of Treatment Upcoming Encounters Date Type Department Care Team (Late st Contact Info) Description 12/12/2025 10:00 AM CDT Office Visit [facility] - Neurology [facility] [address] [place] [address] Lexus Morrison APRN, CONSTRUCTION ENGINEERING MANAGER [address] [place] [address] 12/23/2025 8:00 AM CDT Office Visit [facility] - Family Medicine [facility] [address] [place] [address] Staci Segura APRN, LICENSED PLUMBER #[address] [phone] documented as of this encounter Visit Diagnoses Diagnosis Depression, unspecified depression type documented in this encounter Additional Health Concerns Assessment Noted Time PHQ-9 Depression Total Score: 0 11/21/19 21 10:00 AM CDT documented as of this encounter Care Teams Orchestra Musician Relationship Specialty Start Date End Date Staci Segura APRN, LICENSED PLUMBER [address] [address] PCP - General Advanced Practice Nurse 11/20/20 Lauro Bowles MD #[address] [address] Consulting Physician Cardiovascular Disease - Cardiology 04/16/22 10/27/24 Lexus Morrison APRN, CONSTRUCTION ENGINEERING MANAGER [address] [place] [address] Nurse Practitioner Advanced Practice Nurse 02/26/23 documented as of this encounter
--- OUTSIDE RECORDS SUMMARY | 2025-09-06 12:01 | XMS_ITS | Encounter Summary ---
Author Organization [facility] Address [address] [place] [address] Phone Care Team Providers Care Production Honing Machine Operator Name Role Phone Radha Fan Unavailable Unavailable Lydia Whelan Unavailable Unavailable Staci Segura NP Primary Care Provider + Paige Gillespie MD Unavailable [phone] Janine Jennings NP Unavailable [phone] Encounter Details Date Type Department Care Team (Late st Contact Info) Description 10/21/2022 Telephone [facility] Medicine Infectious Diseases [address] [place] [address] Elijah Harris, [facility] Social History Tobacco Use Types Packs/Day Years Used Date Smoking Tobacco: Former Smokeless Tobacco: Never Social Connection and Isolation Panel Answer Date Recorded In a typical week, how many times do you talk on the phone with family, friends, or neighbors? More than three times a week 10/04/2022 How often do you get togethe r with friends or relatives? More than three times a week 10/04/2022 How often do you attend chur ch or cheondoism services? Never 10/04/2022 Do you belong to any clubs o r organizations such as lutheran groups, unions, fraternal or athletic groups, or school groups? No 10/04/2022 How often do you attend meet ings of the clubs or organizations you belong to? Never 10/04/2022 Are you , , di vorced, , never , or living with a partner? Never 10/04/2022 AUDIT-C Answer Date Recorded Q1: How often do you have a drink containing alc ohol? Never 11/15/2020 Average Number of Drinks Not on file 021 Q3: How often do you have si x or more drinks on one occasion? Never 11/15/2020 Overall Financial Resource Strain (CARDIA) Answe r Date Recorded How hard is it for you to pa y for the very basics like food, housing, medical care, and heating? Not hard at all 10/04/2022 PHQ-2 Answer Date Recorded PHQ-2 Total Score 0 10/04/2022 Hunger Vital Sign Answer Date Recorded Within the past 12 months, y ou worried that your food would run out before you got the money to buy more. Never true 10/04/19 23 Within the past 12 months, t he food you bought just didn't last and you didn't have money to get more. Never true 10/04/2022 PRAPARE - Transportation Answer Date Re corded In the past 12 months, has l ack of transportation kept you from medical appointments or from getting medications? No 09/09 In the past 12 months, has l ack of transportation kept you from meetings, work, or from getting things needed for daily living? No 10/04/2022 Housing Stability Vital Sign Answer Azeem e Recorded In the last 12 months, was t here a time when you were not able to pay the mortgage or rent on time? No 10/04/2022 In the last 12 months, how many places have you lived? 1 10/04/2022 In the last 12 months, was t here a time when you did not have a steady place to sleep or slept in a nursing home (including now)? No 10/04/2022 Comments No Sex and Gender Information Value Date Recorded Sex Assigned at Not on file Legal Sex Female 4:16 AM RETAIL INTERIOR DESIGNER Gender Identity Not on file Sexual Orientation Not on file documented as of this encounter Plan of Treatment Not on file documented as of this encounter Visit Diagnoses Not on filedocumented in this encounter Care Teams Production Honing Machine Operator Relationship Specialty Start Date End Date Staci Segura NP [address] [place] [address] [address] PCP - General Nurse Practitioner 05/17/22 Radha Fan COTA Postdoctoral Research Associate Occupational Therapy 10/03/21 Lydia Whelan, SPORTS BETTING MANAGER Speech Language Pathologist Speech Therapy 12/31/21 Paige Gillespie MD 2 [facility] [address] [address] Surgeon Vascular Surgery 06/05/22 Janine Jennings NP 2 [facility] [address] [address] Nurse Practitioner Infectious Diseases 01/14/23 documented as of this encounter
--- OUTSIDE RECORDS SUMMARY | 2025-09-06 12:01 | XMS_ITS | Encounter Summary ---
Author Organization [facility] Address [address] [place] [address] Phone Care Team Providers Care Placement Assistant Name Role Phone Staci Segura APRN, WHARF OPERATOR Primary Care Prov ider Lauro Bowles MD Unavailable UnaLexus Suarez APRN, ECHOMETER ENGINEER Unavailable [phone] Reason for Visit * Reason Comments Medication Refill Encounter Details Date Type Department Care Team (Late st Contact Info) Description 03/24/[address] [facility] - Neurology - [place] [address] [place] [address] Lexus Morrison, GROUP CONTRACT ANALYST, ECHOMETER ENGINEER [address] [place] [address] Medication Refill Social History Tobacco Use Types [...] suspected to have Coronavirus/COVID-19? No / Unsure 03/12/2022 9:58 AM CDT documented as of this encounter Plan of Treatment Upcoming Encounters Date Type Department Care Team (Late st Contact Info) Description 12/12/2025 10:00 AM CDT Office Visit [facility] - Neurology [facility] [address] [place] [address] Lexus Morrison APRN, ECHOMETER ENGINEER [address] [place] [address] 12/23/2025 8:00 AM CDT Office [facility] - Family Medicine [facility] [address] [place] [address] Staci Segura APRN, WHARF OPERATOR #[address] [phone] documented as of this encounter Visit Diagnoses Diagnosis Depression, unspecified depression type documented in this encounter Additional Health Concerns Assessment Noted Time PHQ-9 Depression Total Score: 0 11/21/19 21 10:00 AM CDT documented as of this encounter Care Teams Placement Assistant Relationship Specialty Start Date End Date Staci Segura APRN, WHARF OPERATOR #[address] [address] PCP - General Advanced Practice Nurse 11/20/20 Lauro Bowles MD #[address] [address] Consulting Physician Cardiovascular Disease - Cardiology 04/16/22 10/27/24 Lexus Morrison APRN, ECHOMETER ENGINEER [address] [place] [address] Nurse Practitioner Advanced Practice Nurse 02/26/23 documented as of this encounter
--- OUTSIDE RECORDS SUMMARY | 2025-09-06 12:01 | XMS_ITS | Encounter Summary ---
Author Organization [facility] Address [address] [place] [address] Phone Care Team Providers Care Digital Art Director Name Role Phone Staci Segura APRN, HOSPITAL EDUCATION COORDINATOR Primary Care Prov ider Lauro Bowles MD Unavailable Lexus Long APRN, PHARMACY CARE COORDINATOR Unavailable [phone]- [phone] Reason for Referral * Radiology Services (Routine) - Closed Specialty Diagnoses / Procedures Referred By Kar honeycutt Referred To Contact Radiology Diagnoses Abnormal mammogram Procedures NIKKI DIAG LEFT UNILATERAL DIGITAL W CAD W PELON Staci Segura APRN, HOSPITAL EDUCATION COORDINATOR #[address] [address] Phone: tel: fax: Referral ID Status Reason Start Date Expiration Date Visits Re quested Visits Authorized [id number] Closed 09/16/2024 1 1 INE COREMAKER * Radiology Services (Routine) - Closed Specialty Diagnoses / Procedures Referred By Kar honeycutt Referred To Contact Radiology Diagnoses Abnormal mammogram Procedures NIKKI US BREAST LIMITED LT Staci Segura APRN, HOSPITAL EDUCATION COORDINATOR #[address] [address] Phone: tel: fax: Referral ID Status Reason Start Date Expiration Date Visits Re quested Visits Authorized [id number] Closed 09/16/2024 1 1 INE COREMAKER Encounter Details Date Type Department Care Team (Late st Contact Info) Description 09/16/2024 Transcribe Orders [facility] Mammography [address] [place] [address] Staci Segura APRN, AMCIEL #2 [facility] [address] [place] [address] Abnormal mammogram (Primary Dx) Social History Tobacco Use Types Packs/Day Years Used Date Smoking Tobacco: Former Cigarettes 1 38 1 - 06/22/2020 Smokeless Tobacco: Never Alcohol Use Standard Drinks/Week Comments Not Currently 0 (1 standard drink = 0.6 oz pur e alcohol) [place] Utilities Answer Date Recorded In the past 12 months has [employer]), gas, oil, or water [employer] threatened to shut off services in your home? Patient declined 12/15/2023 Social Connection and Isolation Panel Answer Date Recorded In a typical week, how many times do you talk on the phone with family, friends, or neighbors? Patient declined 12/15/2023 How often do you get togethe r with friends or relatives? Patient declined 12/15/2023 How often do you attend pentecostal or scientologist serv ices? Patient declined 12/15/2023 Do you belong to any clubs o r organizations such as pentecostal groups, unions, fraternal or athletic groups, or [...] Total Score - Questions 1-9 2 04/[facility] - Occupational Stress Questionnaire Answer Date Recorded [...] place to sleep or slept in a penitentiary (including now)? Patient declined 12/15/2023 Education Answer [...] Office Visit [facility] - Neurology - [place] [address] [place] [address] Lexus Morrison, FLAGGER, PHARMACY CARE COORDINATOR #[address] [place] [address] 12/23/2025 8:00 AM CDT Office Visit [facility] Family Medicine [facility] [address] [place] [address] Staci Segura, FLAGGER, HOSPITAL EDUCATION COORDINATOR #[address] [address] documented as of this encounter Results * NIKKI US BREAST LIMITED LT (12/16/2024 11:35 AM CDT) Anatomical Region Laterality Modality breast Left Ultrasound 12/16/2024 10:3 3 AM CDT Narrative 12/16/2024 3:36 PM CDT - NIKKI DIAG LEFT UNILATERAL DIGITAL W CAD W PELON - NIKKI US BREAST LIMITED LT UNILATERAL LEFT DIGITAL DIAGNOSTIC MAMMOGRAM 3D/2D WITH CAD WITH CLEAVAGE MEDIOLATERAL OBLIQUE CRANIOCAUDAL AND LEFT ULTRASOUND: 12/16/2024 The study was acquired using digital technology and interpreted from soft copy. Current study was also evaluated with ICAD version 7.2. 2D digital mammographic views, as well as 3D digital tomosynthesis were performed in the CC and MLO projections. CLINICAL: Patient returns for a 9 month follow-up left breast. Patient has no complaints. She has reduced range of motion. No personal history of cancer. Sister with postmenopausal breast cancer. COMPARISONS: Comparison is made to exams dated: 04/23/2024, 04/23/2024, and 03/09/2024 [facility]. BREAST TISSUE:There are scattered areas of fibroglandular density. FINDINGS: LEFT DIAGNOSTIC MAMMOGRAM: There is a stable mass at the 1 o'clock position of the left breast anteriorly. No other significant masses or calcifications are seen in the breast on the mammogram. Further evaluation was obtained with sonography. TARGETED LEFT BREAST ULTRASOUND: At the 4 o'clock position of the left breast, 1 cm from the nipple, an elongated hypoechoic focus is again seen. There is some internal vascularity and a mural nodule. This may be vascular. This lesion measures 1.2 x 0.9 x 0.4 cm, previously 1.0 x 1.0 x 0.3 cm. This will continue to be classified as probably benign. IMPRESSION: OVERALL STUDY BIRADS: CATEGORY 3: PROBABLY BENIGN Lesion in the left breast continue to be classified as probably benign. A follow-up mammogram and an ultrasound in 3 months are recommended. This is 1 year from the patient's most recent bilateral mammogram. The results and recommendations were discussed with the patient. Electronically signed by: Tha Natarajan M.D. ll/:12/16/2024 11:35:03 Blasting Cap Assembler(s): RT [place](R)(M), [facility]; FIDENCIO Morrow, [facility] letter sent: Birad 3 Followup Reading location: [facility] OVERALL STUDY BIRADS: Category 3: Probably Benign Procedure Note Tha Natarajan MD - 12/16/2024 - NIKKI DIAG LEFT UNILATERAL DIGITAL W CAD W PELON - NIKKI US BREAST LIMITED LT UNILATERAL LEFT DIGITAL DIAGNOSTIC MAMMOGRAM 3D/2D WITH CAD WITH CLEAVAGE MEDIOLATERAL OBLIQUE CRANIOCAUDAL AND LEFT ULTRASOUND: 12/16/2024 The study was acquired using digital technology and interpreted from soft copy. Current study was also evaluated with ICAD version 7.2. 2D digital mammographic views, as well as 3D digital tomosynthesis were performed in the CC and MLO projections. CLINICAL: Patient returns for a 9 month follow-up left breast. Patient has no complaints. She has reduced range of motion. No personal history of cancer. Sister with postmenopausal breast cancer. COMPARISONS: Comparison is made to exams dated: 04/23/2024, 04/23/2024, and 03/09/2024 [facility]. BREAST TISSUE:There are scattered areas of fibroglandular density. FINDINGS: LEFT DIAGNOSTIC MAMMOGRAM: There is a stable mass at the 1 o'clock position of the left breast anteriorly. No other significant masses or calcifications are seen in the breast on the mammogram. Further evaluation was obtained with sonography. TARGETED LEFT BREAST ULTRASOUND: At the 4 o'clock position of the left breast, 1 cm from the nipple, an elongated hypoechoic focus is again seen. There is some internal vascularity and a mural nodule. This may be vascular. This lesion measures 1.2 x 0.9 x 0.4 cm, previously 1.0 x 1.0 x 0.3 cm. This will continue to be classified as probably benign. IMPRESSION: OVERALL STUDY BIRADS: CATEGORY 3: PROBABLY BENIGN Lesion in the left breast continue to be classified as probably benign. A follow-up mammogram and an ultrasound in 3 months are recommended. This is 1 year from the patient's most recent bilateral mammogram. The results and recommendations were discussed with the patient. Electronically signed by: Tha Natarajan M.D. ll/:12/16/2024 11:35:03 Blasting Cap Assembler(s): RT [place](R)(M), [facility]; FIDENCIO Morrow, [facility] letter sent: Birad 3 Followup Reading location: [facility] OVERALL STUDY BIRADS: Category 3: Probably Benign us Staci Segura FLAGGER, HOSPITAL EDUCATION COORDINATOR IMG MAMMO ORDERABL ES Final Result * NIKKI DIAG LEFT UNILATERAL DIGITAL W CAD W PELON (12/16/2024 10:55 AM CDT) Anatomical Region Laterality Modality breast Left Mammography 12/16/2024 10:3 3 AM CDT Narrative 12/16/2024 3:36 PM CDT - NIKKI DIAG LEFT UNILATERAL DIGITAL W CAD W PELON - NIKKI US BREAST LIMITED LT UNILATERAL LEFT DIGITAL DIAGNOSTIC MAMMOGRAM 3D/2D WITH CAD WITH CLEAVAGE MEDIOLATERAL OBLIQUE CRANIOCAUDAL AND LEFT ULTRASOUND: 12/16/2024 The study was acquired using digital technology and interpreted from soft copy. Current study was also evaluated with ICAD version 7.2. 2D digital mammographic views, as well as 3D digital tomosynthesis were performed in the CC and MLO projections. CLINICAL: Patient returns for a 9 month follow-up left breast. Patient has no complaints. She has reduced range of motion. No personal history of cancer. Sister with postmenopausal breast cancer. COMPARISONS: Comparison is made to exams dated: 04/23/2024, 04/23/2024, and 03/09/2024 [facility]. BREAST TISSUE:There are scattered areas of fibroglandular density. FINDINGS: LEFT DIAGNOSTIC MAMMOGRAM: There is a stable mass at the 1 o'clock position of the left breast anteriorly. No other significant masses or calcifications are seen in the breast on the mammogram. Further evaluation was obtained with sonography. TARGETED LEFT BREAST ULTRASOUND: At the 4 o'clock position of the left breast, 1 cm from the nipple, an elongated hypoechoic focus is again seen. There is some internal vascularity and a mural nodule. This may be vascular. This lesion measures 1.2 x 0.9 x 0.4 cm, previously 1.0 x 1.0 x 0.3 cm. This will continue to be classified as probably benign. IMPRESSION: OVERALL STUDY BIRADS: CATEGORY 3: PROBABLY BENIGN Lesion in the left breast continue to be classified as probably benign. A follow-up mammogram and an ultrasound in 3 months are recommended. This is 1 year from the patient's most recent bilateral mammogram. The results and recommendations were discussed with the patient. Electronically signed by: hTa Natarajan M.D. ll/:12/16/2024 11:35:03 Blasting Cap Assembler(s): RT [place](R)(M), [facility]; FIDENCIO Morrow, [facility] letter sent: Birad 3 Followup Reading location: [facility] OVERALL STUDY BIRADS: Category 3: Probably Benign Procedure Note Tha Natarajan MD - 12/16/2024 - NIKKI DIAG LEFT UNILATERAL DIGITAL W CAD W PELON - NIKKI US BREAST LIMITED LT UNILATERAL LEFT DIGITAL DIAGNOSTIC MAMMOGRAM 3D/2D WITH CAD WITH CLEAVAGE MEDIOLATERAL OBLIQUE CRANIOCAUDAL AND LEFT ULTRASOUND: 12/16/2024 The study was acquired using digital technology and interpreted from soft copy. Current study was also evaluated with ICAD version 7.2. 2D digital mammographic views, as well as 3D digital tomosynthesis were performed in the CC and MLO projections. CLINICAL: Patient returns for a 9 month follow-up left breast. Patient has no complaints. She has reduced range of motion. No personal history of cancer. Sister with postmenopausal breast cancer. COMPARISONS: Comparison is made to exams dated: 04/23/2024, 04/23/2024, and 03/09/2024 [facility]. BREAST TISSUE:There are scattered areas of fibroglandular density. FINDINGS: LEFT DIAGNOSTIC MAMMOGRAM: There is a stable mass at the 1 o'clock position of the left breast anteriorly. No other significant masses or calcifications are seen in the breast on the mammogram. Further evaluation was obtained with sonography. TARGETED LEFT BREAST ULTRASOUND: At the 4 o'clock position of the left breast, 1 cm from the nipple, an elongated hypoechoic focus is again seen. There is some internal vascularity and a mural nodule. This may be vascular. This lesion measures 1.2 x 0.9 x 0.4 cm, previously 1.0 x 1.0 x 0.3 cm. This will continue to be classified as probably benign. IMPRESSION: OVERALL STUDY BIRADS: CATEGORY 3: PROBABLY BENIGN Lesion in the left breast continue to be classified as probably benign. A follow-up mammogram and an ultrasound in 3 months are recommended. This is 1 year from the patient's most recent bilateral mammogram. The results and recommendations were discussed with the patient. Electronically signed by: Tha Natarajan M.D. ll/:12/16/2024 11:35:03 Blasting Cap Assembler(s): RT [place](R)(M), [facility]; FIDENCIO Morrow, [facility] letter sent: Birad 3 Followup Reading location: [facility] OVERALL STUDY BIRADS: Category 3: Probably Benign us Staci Segura FLAGGER, HOSPITAL EDUCATION COORDINATOR IMG MAMMO ORDERABL ES Final Result documented in this encounter Visit Diagnoses Diagnosis Abnormal mammogram- Primary Abnormal mammogram, unspecified Abnormal mammogram Abnormal mammogram, unspecified Abnormal mammogram Abnormal mammogram, unspecified documented in this encounter Additional Health Concerns Assessment Noted Time PHQ-9 Depression Total Score: 2 12/15/19 24 10:00 AM CDT documented as of this encounter Care Teams Digital Art Director Relationship Specialty Start Date End Date Staci Segura, FLAGGER, HOSPITAL EDUCATION COORDINATOR #[address] [address] PCP - General Advanced Practice Nurse 11/20/20 Lauro Bowles MD #[address] [address] Consulting Physician Cardiovascular Disease - Cardiology 04/16/22 10/27/24 Lexus Morrison APRN, PHARMACY CARE COORDINATOR [address] [place] [address] Nurse Practitioner Advanced Practice Nurse 02/26/23 documented as of this encounter
--- OUTSIDE RECORDS SUMMARY | 2025-09-06 12:01 | XMS_ITS | Encounter Summary ---
Author Organization [facility] Address [address] [place] [phone] Phone Care Team Providers Care Hog Ringer Name Role Phone Staci Segura APRN, WATERPROOFER HELPER Primary Care Prov ider Lauro Bowles MD Unavailable UnaLexus Suarez APRN, ESTHETICIAN/OWNER Unavailable +1- [phone] Encounter Details Date Type Department Care Team (Late st Contact Info) Description 06/25/2022 [facility] [address] [place] [address] Sudeep Shin MD [address] [place] [address] Infection and inflammatory reaction due to other [...] Visit [facility] - Neurology - [place] [address]2 [facility] [place] [address] Lexus Morrison, UPHOLSTERY REPAIRER, ESTHETICIAN/OWNER #[address] [place] [address] 12/23/2025 8:00 AM CDT Office Visit [facility] - Family Medicine - [place] [address] [place] [phone] Staci Segura, UPHOLSTERY REPAIRER, WATERPROOFER HELPER #[address] [phone] documented as of this encounter Procedures Procedure Name Priority Date/Time Associated Diagnosis Comments CBC WITH AUTO DIFFERENTIAL Routine 06/25/2022 11:51 AM CDT Infection and inflammatory reaction due to other cardiac and vascular devices, implants and grafts, initial encounter (HCC) COMPLETE BLOOD COUNT (CBC) WITH DIFF Routine 06/25/2022 11:51 AM CDT Infection and inflammatory reaction due to other cardiac and vascular devices, implants and grafts, initial encounter (HCC) BASIC METABOLIC PANEL W/ CALCIUM TOTAL Routine 06/25/2022 11:51 AM CDT Infection and inflammatory reaction due to other cardiac and vascular devices, implants and grafts, initial encounter (HCC) documented in this encounter Results * (ABNORMAL) CBC WITH AUTO DIFFERENTIAL (06/25/2022 11:51 AM CDT) WBC 14.04(H) 4.00 - 12.00 10(3)/mcL 06/25/2022 1:18 PM CDT [facility] RBC 3.74(L) 3.80 - 5.30 10(6)/mcL 06/25/2022 1:18 PM CDT [facility] HEMOGLOBIN (HGB) 9.8(L) 12.0 - 15.8 g/dL 06/25/2022 1:18 PM CDT [facility] HEMATOCRIT (HCT) 32.9(L) 36.0 - 47.0 % 06/25/2022 1:18 PM CDT [facility] MCV 88.0 82.0 - 96.0 fL 06/25/2022 1:18 PM CDT [facility] MCH 26.2 26.0 - 34.0 pg 06/25/2022 1:18 PM CDT [facility] MCHC 29.8(L) 31.0 - 36.0 g/dL 06/25/2022 1:18 PM CDT [facility] PLATELET COUNT 330 140 - 440 10(3)/mcL 06/25/2022 1:18 PM CDT [facility] RDW 16.3(H) 11.8 - 15.5 % 06/25/2022 1:18 PM CDT [facility] MPV 10.5 9.7 - 12.4 fL 06/25/2022 1:18 PM CDT [facility] NEUTROPHILS 62.9 47.0 - 73.0 % 06/25/2022 1:18 PM CDT [facility] LYMPHOCYTES 18.5 18.0 - 42.0 % 06/25/2022 1:18 PM CDT [facility] MONOCYTES 5.3 4.0 - 12.0 % 06/25/2022 1:18 PM CDT [facility] EOSINOPHILS 12.7(H) 0.0 - 5.0 % 06/25/2022 1:18 PM CDT [facility] BASOPHILS 0.6 0.0 - 1.0 % 06/25/2022 1:18 PM CDT [facility] ABSOLUTE NEUTROPHILS 8.83(H) 1.60 - 7.70 10(3)/mcL 06/25/2022 1:18 PM CDT [facility] ABSOLUTE LYMPHOCYTES 2.60 1.30 - 3.20 10(3)/mcL 06/25/2022 1:18 PM CDT [facility] ABSOLUTE MONOCYTES 0.74 0.20 - 1.00 10(3)/mcL 06/25/2022 1:18 PM CDT [facility] ABSOLUTE EOSINOPHIL 1.78(H) 0.00 - 0.40 10(3)/mcL 06/25/2022 1:18 PM CDT [facility] ABSOLUTE BASOPHILS 0.09 0.00 - 0.10 10(3)/mcL 06/25/2022 1:18 PM CDT [facility] NRBC PER 100 WBC 0 06/25/20 1:18 PM CDT [facility] RESULTS ARE CONSISTENT WITH PERIPHERAL SMEAR REVIEW Yes 06/25/2022 1:18 PM CDT [facility] POIKILOCYTOSIS 1+ 06/25/2022 1:18 PM CDT [facility] ACANTHOCYTE Present 06/25/2022 1:18 PM CDT [facility] Blood No Phlebotomy Charged / Unknown 06/25/2022 11:51 AM CDT 06/25/2022 12:47 PM CDT Narrative [facility] - 06/25/2022 1:18 PM CDT Hypochromia us Sudeep Shin MD HEMATOLOGY ORDERABLES Final Result [facility] [address] [place] [address] * (ABNORMAL) BASIC METABOLIC PANEL W/ CALCIUM TOTAL (06/25/2022 11:51 AM CDT) SODIUM 140 136 - 144 mmol/L 06/25/2022 1:43 PM CDT [facility] POTASSIUM 4.1 3.5 - 5.1 mmol/L 06/25/2022 1:43 PM CDT [facility] CHLORIDE 105 100 - 110 mmol/L 06/25/2022 1:43 PM CDT [facility] CO2, VENOUS 26 22 - 32 mmol/L 06/25/2022 1:43 PM CDT [facility] ANION GAP 13.1 8.0 - 20.0 mmol/L 06/25/2022 1:43 PM CDT [facility] GLUCOSE 106(H) 70 - 99 mg/dL 06/25/2022 1:43 PM CDT [facility] BUN 10 6 - 20 mg/dL 06/25/2022 1:43 PM CDT [facility] CREATININE, BLOOD 0.70 0.60 - 1.10 mg/dL 06/25/2022 1:43 PM CDT [facility] BUN/CREATININE RATIO 14 12 - 20 ratio 06/25/2022 1:43 PM CDT [facility] CALCIUM 9.8 8.9 - 10.3 mg/dL 06/25/2022 1:43 PM CDT [facility] GFR, ESTIMATED >60 >=60 06/25/2022 1:43 PM CDT [facility] Comment: Creatinine Clearance is the preferred criteria for selecting drug dose adjustments in renally impaired patients. The GFR is provided as additional pertinent clinical information. GFR is reported in mL/min/1.73 sq m. Calculation based on the Chronic Kidney Disease Epidemiology Collaboration (CKD- EPI) equation refit without adjustment for race. GFR, EST. >60 >=60 022 1:43 PM CDT [facility] GFR, EST. NONAFRICAN >60 >=60 06/25/2022 1:43 PM CDT [facility] Blood No Phlebotomy Charged / Unknown 06/25/2022 11:51 AM CDT 06/25/2022 12:47 PM CDT us Sudeep Shin MD CHEMISTRY ORDERABLES Final Result [facility] #1 [facility] [place] [address] documented in this encounter Visit Diagnoses Diagnosis Infection and inflammatory reaction due to other cardiac and vascular devices, implants and grafts, initial encounter documented in this encounter Additional Health Concerns Assessment Noted Time PHQ-9 Depression Total Score: 0 11/21/19 21 10:00 AM CDT documented as of this encounter Care Teams Hog Ringer Relationship Specialty Start Date End Date Staci Segura, UPHOLSTERY REPAIRER, WATERPROOFER HELPER #[address] [phone] PCP - General Advanced Practice Nurse 11/20/20 Lauro Bowles MD #[address] [address] Consulting Physician Cardiovascular Disease - Cardiology 04/16/22 10/27/24 Lexus Morrison APRN, ESTHETICIAN/OWNER #[address] [place] [address] Nurse Practitioner Advanced Practice Nurse 02/26/23 documented as of this encounter
--- OUTSIDE RECORDS SUMMARY | 2025-09-06 12:01 | XMS_ITS | Encounter Summary ---
Author Organization [facility] Address [address] [place] [address] Phone Care Team Providers Care Computer Analyst Name Role Phone Staci Segura APRN, SOLAR THERMAL INSTALLER Primary Care Prov ider Lauor Bowles MD Unavailable Lexus Long APRN, BUILDING ASSOCIATE Unavailable [phone]- [phone] Reason for Visit * Reason Comments Medication Refill Encounter Details Date Type Department Care Team (Late st Contact Info) Description 11/18/2023 Refill [facility] - Family Medicine - [place] [address] [place] [address] Staci Segura APRN, SOLAR THERMAL INSTALLER #[address] [address] Medication Refill Social History Tobacco Use Types Packs/Day Years Used Date Smoking Tobacco: Former Cigarettes 1 38 1 - 06/22/2020 Smokeless Tobacco: Never Alcohol Use Standard Drinks/Week Comments Not Currently 0 (1 standard drink = 0.6 oz pur e alcohol) PHQ-2 Answer Date Recorded Total Score - Questions 1-9 0 07/0 01/2022 Education Answer Date Recorded What is the [...] Telephone Encounter - Nydia Avila RN - 11/18/2023 11:25 AM CDT Name from pharmacy: OXYBUTYNIN CL ER 5 MG TABLET Will file in chart as: oxybutynin (DITROPAN-XL) 5 MG TABLET SR 24 HR The original prescription was discontinued on 08/28/2023 by Lexus Morrison APRN, BUILDING ASSOCIATE documented in this encounter Plan of Treatment Upcoming Encounters Date Type Department Care Team (Late st Contact Info) Description 12/12/2025 10:00 AM CDT Office Visit [facility] - Neurology - [place] [address] [place] [address] Lexus Morrison APRN, BUILDING ASSOCIATE #[address] [place] [address] 12/23/2025 8:00 AM CDT Office Visit [facility] - Family Medicine - [place] [address] [place] [address] Stcai Segura APRN, SOLAR THERMAL INSTALLER #[address] [address] documented as of this encounter Visit Diagnoses Diagnosis Urinary frequency documented in this encounter Additional Health Concerns Assessment Noted Time PHQ-9 Depression Total Score: 0 11/21/19 10:00 AM CDT documented as of this encounter Care Teams Computer Analyst Relationship Specialty Start Date End Date Staci Segura APRN, SOLAR THERMAL INSTALLER #[address] [address] PCP - General Advanced Practice Nurse 11/20/20 Lauro Bowles MD #[address] [address] Consulting Physician Cardiovascular Disease - Cardiology 04/16/22 10/27/24 Lexus Morrison APRN, BUILDING ASSOCIATE #[address] [place] [address] Nurse Practitioner Advanced Practice Nurse 02/26/23 documented as of this encounter
--- OUTSIDE RECORDS SUMMARY | 2025-09-06 12:01 | XMS_ITS | Encounter Summary ---
Author Organization [facility] Address [address] [place] [address] Phone Care Team Providers Care Architectural Wood Model Maker Name Role Phone Staci Segura APRN, AWNINGS MECHANIC Primary Care Prov ider Lexus Morrison APRN, YIELD LOSS INSPECTOR Unavailable [phone]- [phone] Reason for Referral * Radiology Services (Routine) - Closed Specialty Diagnoses / Procedures Referred By Contac t Referred To Contact Radiology Diagnoses Abnormal mammogram Procedures NIKKI US BREAST LIMITED LT NIKKI US BREAST LIMITED VIPIN Staci Segura APRN, AWNINGS MECHANIC #[address] [address] Phone: tel: fax: Referral ID Status Reason Start Date Expiration Date Visits Re quested Visits Authorized [id number] Closed 02/15/2025 1 1 * Radiology Services (Routine) - Closed Specialty Diagnoses / Procedures Referred By Controbb t Referred To Contact Radiology Diagnoses Abnormal mammogram Procedures NIKKI DIAG BILATERAL DIGITAL W CAD W PELON Staci Seugra APRN, AWNINGS MECHANIC #[address] [address] Phone: tel: fax: Referral ID Status Reason Start Date Expiration Date Visits Re quested Visits Authorized [id number] Closed 02/15/2025 1 1 Encounter Details Date Type Department Care Team (Late st Contact Info) Description 02/15/2025 Transcribe Orders [facility] Mammography [address] [place] [address] Staci Segura APRN, MACIEL #2 [facility] [address] [place] [address] Abnormal mammogram (Primary Dx) Social History Tobacco Use Types Packs/Day Years Used Date Smoking Tobacco: Former Cigarettes 1 38 1 - 06/22/2020 Smokeless Tobacco: Never Alcohol Use Standard Drinks/Week Comments Not Currently 0 (1 standard drink = 0.6 oz pur e alcohol) [facility] Utilities Answer Date Recorded In the past 12 months has [place], gas, oil, or water [employer] threatened to shut off services in your home? Patient declined 12/15/2023 Social Connection and Isolation Panel Answer Date Recorded In a typical week, how many times do you talk on the phone with family, friends, or neighbors? Patient declined 12/15/2023 How often do you get togethe r with friends or relatives? Patient declined 12/15/2023 How often do you attend druze or restorationist serv ices? Patient declined 12/15/2023 Do you belong to any clubs o r organizations such as druze groups, unions, fraternal or athletic groups, or [...] Total Score - Questions 1-9 2 04/2024 [facility] - Occupational Stress Questionnaire Answer Date Recorded [...] place to sleep or slept in a fpc (including now)? Patient declined 12/15/2023 Education Answer [...] Description 12/12/2025 10:00 AM CDT Office Visit [facility] - Neurology - [place] [address] [place] [address] Lexus Morrison, GLOBAL CLIMATE CHANGE ANALYST, YIELD LOSS INSPECTOR #2 [place] [address] 12/23/2025 8:00 AM CDT Office Visit [facility] - Family Medicine - [place] [address] [place] [address] Staci Segura, GLOBAL CLIMATE CHANGE ANALYST, AWNINGS MECHANIC #[address] [address] documented as of this encounter Results * [facility] US BREAST LIMITED LT (03/22/2025 1:35 PM CDT) Anatomical Region Laterality Modality breast Left Ultrasound 03/22/2025 12:2 0 PM CDT Narrative 03/23/2025 [...] exams dated: 12/16/2024, 12/16/2024, 04/23/2024, and 03/09/2024 [facility]. BREAST TISSUE:There are scattered areas of [...] signed by: Tha Natarajan M.D. ll/:03/22/2025 13:45:46 Cdl Flatbed Truck Driver(s): NAY Lerner, [facility]; RT Ld(R)(M), [facility] letter sent: Birad 3 Followup Reading location: [facility] OVERALL STUDY BIRADS: Category 3: [...] exams dated: 12/16/2024, 12/16/2024, 04/23/2024, and 03/09/2024 [facility]. BREAST TISSUE:There are scattered areas of [...] signed by: Tha Natarajan M.D. ll/:03/22/2025 13:45:46 Cdl Flatbed Truck Driver(s): Nanda Hardin RDMS OBJOSE, [facility]; RT Ld(R)(M), [facility] letter sent: Birad 3 Followup Reading location: [facility] OVERALL STUDY BIRADS: Category 3: Probably Benign us Staci Segura APRN, AWNINGS MECHANIC IMG MAMMO ORDERABL ES Final Result * NIKKI DIAG BILATERAL DIGITAL W CAD [...] exams dated: 12/16/2024, 12/16/2024, 04/23/2024, and 03/09/2024 [facility]. BREAST TISSUE:There are scattered areas of [...] signed by: Tha Natarajan M.D. ll/:03/22/2025 13:45:46 Cdl Flatbed Truck Driver(s): Nanda Hardin RDMS OBJOSE, [facility]; RT Ld(R)(M), [facility] letter sent: Birad 3 Followup Reading location: [facility] OVERALL STUDY BIRADS: Category 3: [...] exams dated: 12/16/2024, 12/16/2024, 04/23/2024, and 03/09/2024 [facility]. BREAST TISSUE:There are scattered areas of [...] signed by: Tha Natarajan M.D. ll/:03/22/2025 13:45:46 Cdl Flatbed Truck Driver(s): Nanda Hardin RDMS OBJOSE, [facility]; RT Ld(Macie)(M), [facility] letter sent: Birad 3 Followup Reading location: [facility] OVERALL STUDY BIRADS: Category 3: Probably Benign us Staci Segura APRN, AWNINGS MECHANIC IMG MAMMO ORDERABL ES Final Result documented in this encounter Visit Diagnoses Diagnosis Abnormal mammogram- Primary Abnormal mammogram, unspecified Abnormal mammogram Abnormal mammogram, unspecified Abnormal mammogram Abnormal mammogram, unspecified documented in this encounter Additional Health Concerns Assessment Noted Time PHQ-9 Depression Total Score: 2 12/15/19 24 10:00 AM CDT documented as of this encounter Care Teams Architectural Wood Model Maker Relationship Specialty Start Date End Date Staci Segura APRN, AWNINGS MECHANIC #[address] [address] PCP - General Advanced Practice Nurse 11/20/20 Lexus Morrison APRN, YIELD LOSS INSPECTOR [address] [place] [address] Nurse Practitioner Advanced Practice Nurse 02/26/23 documented as of this encounter
--- OUTSIDE RECORDS SUMMARY | 2025-09-06 12:01 | XMS_ITS | Encounter Summary ---
Author Organization [facility] Address [address] [place] [address] Phone Care Team Providers Care Oyster Sorter Name Role Phone Staci Segura APRN, FRUIT WASHER Primary Care Prov ider Lauro Bowles MD Unavailable Lexus Long APRN, WAREHOUSE MAN Unavailable [phone]- [phone] Reason for Visit * Reason Onset Date Comments Referral 07/18/2022 RE: EXTERNAL INF ECTIOUS DISEASE REFERRAL Encounter Details Date Type Department Care Team (Late st Contact Info) Description 07/18/2022 Telephone [facility] [address] [place] [address] Staci Segura APRN, FRUIT WASHER #[address] [address] Referral (RE: EXTERNAL INFECTIOUS DISEASE REFERRAL) Social History Tobacco Use Types Packs/Day Years [...] Coronavirus/COVID-19? No / Unsure 07/19/2022 8:58 AM COLLISION MECHANIC documented as of this encounter Miscellaneous Notes * Telephone Encounter - Shamika Sahni RMA - 07/24/2022 1:32 PM COLLISION MECHANIC Pt has appointment 07/26 ISION MECHANIC * Telephone Encounter - Shamika Sahni RMA - 07/23/2022 8:53 AM COLLISION MECHANIC No VM ISION MECHANIC * Telephone Encounter - Shamika Sahni RMA - 07/18/2022 2:00 PM COLLISION MECHANIC No answer or VM ISION MECHANIC * Telephone Encounter - Staci Segura APRN, CNP - 07/18/2022 10:57 AM COLLISION MECHANIC Please contact patient regarding this. She has difficulty speaking due to a previous stroke. ISION MECHANIC * Telephone Encounter - Pricilla Dumont - 07/18/2022 10:42 AM CST SITUATION: Requesting provider review EXTERNAL INFECTIOUS DISEASE REFERRAL. BACKGROUND: Referral was processed. I read your note to process referral to the closest location for the patient. Referral was sent to [facility] - Infectious Disease [address] , [address] [facility] [address] P: [phone] F: [phone] ASSESSMENT: Request for provider review due to the following reason(s): We called patient today to let them know where their Referral was Processed. Patient answered and then Hung Up. RECOMMENDATION: Based on the above information the provider has the following option(s): Contact patient and let them know where Referral was sent. Give patient Office Details to follow up with that Provider. Referral Center is closing referral as patient is not responding to Referral Center. Pricilla Dumont [facility] On[facility] - Centralized Referral Management 07/18/2022, 10:42 AM COLLISION MECHANIC ISION MECHANIC documented in this encounter Plan of Treatment Upcoming Encounters Date Type Department Care Team (Late st Contact Info) Description 12/12/2025 10:00 AM CDT Office Visit [facility] - Neurology - [place] [address] [place] [address] Lexus Morrison APRN, WAREHOUSE MAN [address] [place] [address] 12/23/2025 8:00 AM CDT Office Visit [facility] Medical [facility] - Family Medicine - [place] [address] [place] [address] Staci Segura APRN, FRUIT WASHER #[address] [address] documented as of this encounter Visit Diagnoses Not on filedocumented in this encounter Additional Health Concerns Assessment Noted Time PHQ-9 Depression Total Score: 0 11/21/19 21 10:00 AM CDT documented as of this encounter Care Teams Oyster Sorter Relationship Specialty Start Date End Date Staci Segura APRN, FRUIT WASHER #[address] [address] PCP - General Advanced Practice Nurse 11/20/20 Lauro Bowles MD [address] [address] [address] Consulting Physician Cardiovascular Disease - Cardiology 04/16/22 10/27/24 Lexus Morrison, RADIO TESTER, WAREHOUSE MAN [address] [place] [address] Nurse Practitioner Advanced Practice Nurse 02/26/23 documented as of this encounter
--- OUTSIDE RECORDS SUMMARY | 2025-09-06 12:01 | XMS_ITS | Encounter Summary ---
Author Organization [facility] Address [address] [place] [address] Phone Care Team Providers Care Laborer Plumbing Name Role Phone Staci Segura APRN, RAIL WALKER Primary Care Prov ider Lauro Bowles MD Unavailable Lexus Long APRN, TAX CLERK Unavailable [phone]- [phone] Reason for Visit * Reason Comments Medication Refill Encounter Details Date Type Department Care Team (Late st Contact Info) Description 05/18/2024 Refill [facility] - [place] [address] [place] [address] Staci Segura APRN, RAIL WALKER #[address] [address] Medication Refill Social History Tobacco Use Types Packs/Day Years Used Date Smoking Tobacco: Former Cigarettes 1 38 1 - 06/22/2020 Smokeless Tobacco: Never Alcohol Use Standard Drinks/Week Comments Not Currently 0 (1 standard drink = 0.6 oz pur e alcohol) [facility] Utilities Answer Date Recorded In the [...] declined 12/15/2023 How often do you attend jehovah's witness or baptist serv ices? Patient declined 12/15/2023 Do you belong to any clubs o r organizations such as jehovah's witness groups, unions, fraternal or athletic groups, or [...] Total Score - Questions 1-9 2 04/2024 [facility] Occupat ional Health - Occupational [...] place to sleep or slept in a senior care (including now)? Patient declined 12/15/2023 Education Answer [...] Telephone Encounter - Nydia Avila RN - 05/19/2024 7:27 AM CDT Images from the original note were not included. Potassium Chloride [facility] Dispensed Days Supply Quantity Provider Pharmacy KLOR-NINO M20 20MEQ ER TAB 05/16/2024 90 90 Staci Segura APRN, RAIL WALKER [id number] ... KLOR-CON M20 TABLET 02/17/2024 90 90 Staci Segura APRN, RAIL WALKER [facility] ... documented in this encounter Plan of Treatment Upcoming Encounters Date Type Department Care Team (Late st Contact Info) Description 12/12/2025 10:00 AM CDT [facility] [facility] #2 [place] [address] Lexus Morrison APRN, TAX CLERK #[address] [place] [address] 12/23/2025 8:00 AM CDT Office Visit [facility] - [facility] #[address] [place] [address] Staci Segura APRN, RAIL WALKER #[address] [address] documented as of this encounter Visit Diagnoses Diagnosis Hypokalemia Hypopotassemia documented in this encounter Additional Health Concerns Assessment Noted Time PHQ-9 Depression Total Score: 2 12/15/19 24 10:00 AM CDT documented as of this encounter Care Teams Laborer Plumbing Relationship Specialty Start Date End Date Staci Segura APRN, RAIL WALKER [address] [address] PCP - General Advanced Practice Nurse 11/20/20 Lauro Bowles MD #[address] [address] Consulting Physician Cardiovascular Disease - Cardiology 04/16/22 10/27/24 Lexus Morrison APRN, TAX CLERK #[address] [place] [address] Nurse Practitioner Advanced Practice Nurse 02/26/23 documented as of this encounter
--- OUTSIDE RECORDS SUMMARY | 2025-09-06 12:01 | XMS_ITS | Encounter Summary ---
Author Organization [facility] Address [address] [place] [address] Phone Care Team Providers Care Motor Vehicle Assembler Name Role Phone Staci Segura APRN, FLOOR MANAGER Primary Care Prov ider Lauro Bowles MD Unavailable Lexus Long APRN, EMERGENCY PHYSICIAN Unavailable [phone]- [phone] Reason for Visit * Reason Comments Medication Refill Encounter Details Date Type Department Care Team (Late st Contact Info) Description 07/12/2022 Refill [facility] Medicine - [place] [address] [place] [address] Staci Segura APRN, FLOOR MANAGER #[address] [address] Medication Refill Social History Tobacco [...] PM CDT documented as of this encounter Miscellaneous Notes * Telephone Encounter - Nydia Avila RN - 07/12/2022 1:41 PM CDT Continue 1 tab daily? Per nursing clinical judgement, provider to review and approve the medication(s) order(s) if appropriate. Requested Prescriptions Pending Prescriptions Disp Refills Klor-Con M20 20 MEQ Tablet Controlled Release [Pharmacy Med Name: KLOR-CON M20 TABLET] 36 Tablet 0 Sig: TAKE 2 TABLETS BY MOUTH DAILY FOR 3 DAYS, THEN 1 TABLET DAILY FOR 30 DAYS. Potassium Supplement Protocol Passed - 07/12/2022 10:30 AM Passed - Normal serum potassium in past 12 months POTASSIUM Date Value Ref Range Status 07/03/2022 3.5 3.5 - 5.1 mmol/L Final Passed - Visit with relevant provider in past 12 months or upcoming 90 days Recent Visits Date Type Provider Dept 06/04/22 Office Visit Staci Segura APRN, MACIEL [facility] 03/12/22 Office Visit Staci Segura APRN, MACIEL [facility] 12/11/21 Office Visit Staci Segura APRN, MACIEL [facility] Showing recent visits within past 365 days and meeting all other requirements Future Appointments No visits were found meeting these conditions. Showing future appointments within next 90 days and meeting all other requirements documented in this encounter Plan of Treatment Upcoming Encounters Date Type Department Care Team (Late st Contact Info) Description 12/12/2025 10:00 AM CDT [facility] [place] #[address] [place] [address] Lexus Morrison APRN, EMERGENCY PHYSICIAN #[address] [place] [address] 12/23/2025 8:00 AM CDT Office Visit [facility] - Family Medicine - [place] [address] [place] [address] Staci Segura APRN, FLOOR MANAGER #[address] [address] documented as of this encounter Visit Diagnoses Diagnosis Hypokalemia Hypopotassemia documented in this encounter Additional Health Concerns Assessment Noted Time PHQ-9 Depression Total Score: 0 11/21/19 21 10:00 AM CDT documented as of this encounter Care Teams Motor Vehicle Assembler Relationship Specialty Start Date End Date Staci Segura APRN, FLOOR MANAGER [address] [address] PCP - General Advanced Practice Nurse 11/20/20 Lauro Bowles MD #[address] [address] Consulting Physician Cardiovascular Disease - Cardiology 04/16/22 10/27/24 Lexus Morrison APRN, EMERGENCY PHYSICIAN #[address] [place] [address] Nurse Practitioner Advanced Practice Nurse 02/26/23 documented as of this encounter
--- OUTSIDE RECORDS SUMMARY | 2025-09-06 12:02 | XMS_ITS | Encounter Summary ---
Author Organization [facility] Address [address] [place] [address] Phone Care Team Providers Care Arc Cutter Plasma Arc Name Role Phone Staci Segura APRN, ROAD EQUIPMENT OPERATOR Primary Care Prov ider Lauro Bowles MD Unavailable Lexus Long APRN, ATTENDANT CHILD ACTIVITY Unavailable [phone]- [phone] Encounter Details Date Type Department Care Team (Late st Contact Info) Description 10/08/2022 [facility] [address] [place] [address] Social History Tobacco Use Types Packs/Day Years [...] suspected to have Coronavirus/COVID-19? No / Unsure 10/09/2022 8:09 AM BUSINESS REPORTING DEVELOPER documented as of this encounter Plan of Treatment Upcoming Encounters Date Type Department Care Team (Late st Contact Info) Description 12/12/2025 10:00 AM CDT Office Visit [facility] Neurology - [place] [address] [place] [address] Lexus Morrison APRN, ATTENDANT CHILD ACTIVITY #[address] [place] [address] 12/23/2025 8:00 AM CDT Office Visit [facility] - Family [facility] #[address] [place] [address] Staci Segura APRN, ROAD EQUIPMENT OPERATOR #[address] [address] documented as of this encounter Visit Diagnoses Not on filedocumented in this encounter Additional Health Concerns Assessment Noted Time PHQ-9 Depression Total Score: 0 11/21/19 21 10:00 AM CDT documented as of this encounter Care Teams Arc Cutter Plasma Arc Relationship Specialty Start Date End Date Staci Segura APRN, ROAD EQUIPMENT OPERATOR #[address] [address] PCP - General Advanced Practice Nurse 11/20/20 Lauro Bowles MD #[address] [address] Consulting Physician Cardiovascular Disease - Cardiology 04/16/22 10/27/24 Lexus Morrison APRN, ATTENDANT CHILD ACTIVITY #[address] [place] [address] Nurse Practitioner Advanced Practice Nurse 02/26/23 documented as of this encounter
--- OUTSIDE RECORDS SUMMARY | 2025-09-06 12:02 | XMS_ITS | Encounter Summary ---
Author Organization [facility] Healthcare Address [address] [place] [address] Care Team Providers Care Staffing Coordinator Name Role Phone Meng Radha PATRICIA Unavailable Unavailable Lydia Whelan CLUBHOUSE MANAGER Unavailable Unavailable Staci Segura NP Primary Care Provider + Paige Gillespie MD Unavailable Janine Jennings NP Unavailable [phone] Reason for Visit * Reason Onset Date Comments Cancel 08/20/202108/20 & 08/23 AP POINTMENTS Encounter Details Date Type Department Care Team (Late st Contact Info) Description 08/20/2021 Telephone [facility] Physical Therapy [address] [place] [address] Lydia Whelan, CLUBHOUSE MANAGER Cancel (08/20 & 08/23 APPOINTMENTS) Social History Tobacco Use Types Packs/Day Years Used Date Smoking Tobacco: Never Smokeless Tobacco: Never AUDIT-C Answer Date Recorded Q1: How often do you have a drink containing alc ohol? Never 11/15/2020 Average Number of Drinks Not on file 021 Q3: How often do you have si x or more drinks on one occasion? Never 11/15/2020 Comments No Sex and Gender Information Value Date Recorded Sex Assigned at Not on file Legal Sex Female 4:16 AM HAY STACKER OPERATOR Gender Identity Not on file Sexual Orientation Not on file documented as of this encounter Plan of Treatment Not on file documented as of this encounter Visit Diagnoses Not on filedocumented in this encounter Care Teams Staffing Coordinator Relationship Specialty Start Date End Date Staci Segura NP [address] [place] [address] [address] PCP - General Nurse Practitioner 05/17/22 Radha Fan COTA Pad Machine Operator Occupational Therapy 10/03/21 Lydia Whelan, CLUBHOUSE MANAGER Speech Language Pathologist Speech Therapy 12/31/21 Paige Gillespie MD [address] [place] [address] [address] Surgeon Vascular Surgery 06/05/22 Janine Jennings NP [address] [place] [address] [address] Nurse Practitioner Infectious Diseases 01/14/23 documented as of this encounter
--- OUTSIDE RECORDS SUMMARY | 2025-09-06 12:02 | XMS_ITS | Encounter Summary ---
Author Organization [facility] Address [address] [place] [address] Phone Care Team Providers Care Night Shift Manager Name Role Phone Staci Segura APRN, PHOTOGRAPHY PROFESSOR Primary Care Prov ider Lauro Bowles MD Unavailable Unajacksoni Lexus Patterson APRN, FINANCIAL SERVICE PROFESSIONAL Unavailable +1- [phone] Encounter Details Date Type Department Care Team (Late st Contact Info) Description 10/11/2022 [facility] [address] [place] [address] Tati Paige MD [address] [facility] [address] [place] [address] Disruption of external operation (surgical) wound, not elsewhere classified, initial encounter Social History Tobacco Use Types Packs/Day Years [...] Coronavirus/COVID-19? No / Unsure 10/09/2022 8:09 AM SIGN MAINTENANCE documented as of this encounter Plan of Treatment Upcoming Encounters Date Type Department Care Team (Late st Contact Info) Description 12/12/2025 10:00 AM CDT Office Visit [facility] - Neurology - [place] [address] [place] [address] Lexus Morrison, UNIT MANAGER, FINANCIAL SERVICE PROFESSIONAL [address] [place] [address] 12/23/2025 8:00 AM CDT Office Visit [facility] - Family Medicine - [place] [address] [place] [address] Staci Segura, UNIT MANAGER, PHOTOGRAPHY PROFESSOR #[address] [address] documented as of this encounter Procedures Procedure Name Priority Date/Time Associated Diagnosis Comments CBC WITH AUTO DIFFERENTIAL Routine 10/11/2022 10:40 AM SIGN MAINTENANCE Disruption of external operation (surgical) wound, not elsewhere classified, initial encounter CMP (COMPREHENSIVE METABOLIC PANEL) Routine 10/11/2022 10:40 AM SIGN MAINTENANCE Disruption of external operation (surgical) wound, not elsewhere classified, initial encounter COMPLETE BLOOD COUNT (CBC) WITH DIFF Routine 10/11/2022 10:40 AM SIGN MAINTENANCE Disruption of external operation (surgical) wound, not elsewhere classified, initial encounter BILIRUBIN DIRECT (CONJUGATED) Routine 10/11/2022 10:40 AM SIGN MAINTENANCE Disruption of external operation (surgical) wound, not elsewhere classified, initial encounter documented in this encounter Results * (ABNORMAL) CBC WITH AUTO DIFFERENTIAL (10/11/2022 10:40 AM SIGN MAINTENANCE) WBC 10.09 4.00 - 12.00 10(3)/[facility] 10/11/2022 11:11 AM [facility] RBC 3.66(L) 3.80 - 5.30 10(6)/[facility] 10/11/2022 11:11 AM [facility] HEMOGLOBIN (HGB) 10.2(L) 12.0 - 15.8 g/dL 10/11/2022 11:11 AM [facility] HEMATOCRIT (HCT) 32.6(L) 36.0 - 47.0 % 10/11/2022 11:11 AM [facility] MCV 89.1 82.0 - 96.0 fL 10/11/2022 11:11 AM [facility] MCH 27.9 26.0 - 34.0 pg 10/11/2022 11:11 AM [facility] MCHC 31.3 31.0 - 36.0 g/dL 10/11/2022 11:11 AM [facility] PLATELET COUNT 171 140 - 440 10(3)/[facility] 10/11/2022 11:11 AM [facility] RDW 18.3(H) 11.8 - 15.5 % 10/11/2022 11:11 AM [facility] MPV 11.8 9.7 - 12.4 fL 10/11/2022 11:11 AM [facility] NEUTROPHILS 65.8 47.0 - 73.0 % 10/11/2022 11:11 AM [facility] LYMPHOCYTES 24.3 18.0 - 42.0 % 10/11/2022 11:11 AM [facility] MONOCYTES 6.4 4.0 - 12.0 % 10/11/2022 11:11 AM [facility] EOSINOPHILS 2.9 0.0 - 5.0 % 10/11/2022 11:11 AM [facility] BASOPHILS 0.6 0.0 - 1.0 % 10/11/2022 11:11 AM [facility] ABSOLUTE NEUTROPHILS 6.64 1.60 - 7.70 10(3)/[facility] 10/11/2022 11:11 AM SIGN MAINTENANCE [facility] ABSOLUTE LYMPHOCYTES 2.45 1.30 - 3.20 10(3)/[facility] 10/11/2022 11:11 AM SIGN MAINTENANCE [facility] ABSOLUTE MONOCYTES 0.65 0.20 - 1.00 10(3)/[facility] 10/11/2022 11:11 AM SIGN MAINTENANCE [facility] ABSOLUTE EOSINOPHIL 0.29 0.00 - 0.40 10(3)/[facility] 10/11/2022 11:11 AM SIGN MAINTENANCE [facility] ABSOLUTE BASOPHILS 0.06 0.00 - 0.10 10(3)/[facility] 10/11/2022 11:11 AM SIGN MAINTENANCE [facility] NRBC PER 100 WBC 0 10/11/19 11:11 AM SIGN MAINTENANCE [facility] Blood No Phlebotomy Charged / Unknown 10/11/2022 10:40 AM SIGN MAINTENANCE 10/11/2022 11:07 AM SIGN MAINTENANCE Tati Paige MD HEMATOLOGY ORDERABLES Final Resu lt [facility] #1 [place] [address] * BILIRUBIN DIRECT (CONJUGATED) (10/11/2022 10:40 AM SIGN MAINTENANCE) BILIRUBIN,DIREC T <0.3 <=0.3 mg/dL 10/11/2022 11:32 AM SIGN MAINTENANCE [facility] Blood No Phlebotomy Charged / Unknown 10/11/2022 10:40 AM SIGN MAINTENANCE 10/11/2022 11:07 AM SIGN MAINTENANCE Tati Paige MD CHEMISTRY ORDERABLES Final Resul t Performing Organization Address City/[facility]/ZIP Co de Phone Number [facility] [address] [place] [address] * (ABNORMAL) CMP (COMPREHENSIVE METABOLIC PANEL) (10/11/2022 10:40 AM [facility]) SODIUM 140 136 - 144 mmol/L 10/11/2022 11:32 AM [facility] POTASSIUM 3.4(L) 3.5 - 5.1 mmol/L 10/11/2022 11:32 AM [facility] CHLORIDE 106 100 - 110 mmol/L 10/11/2022 11:32 AM [facility] CO2, VENOUS 23 22 - 32 mmol/L 10/11/2022 11:32 AM [facility] ANION GAP 14.4 8.0 - 20.0 mmol/L 10/11/2022 11:32 AM [facility] GLUCOSE 124(H) 70 - 99 mg/dL 10/11/2022 11:32 AM [facility] BUN 17 6 - 20 mg/dL 10/11/2022 11:32 AM [facility] CREATININE, BLOOD 0.86 0.60 - 1.10 mg/dL 10/11/2022 11:32 AM [facility] BUN/CREATININE RATIO 20 12 - 20 ratio 10/11/2022 11:32 AM [facility] TOTAL PROTEIN 6.6 6.0 - 8.3 g/dL 10/11/2022 11:32 AM [facility] ALBUMIN 4.0 3.5 - 5.2 g/dL 10/11/2022 11:32 AM [facility] Comment: The colormetric methods used for the determination of Albumin may lead to falsely elevated test results in patients suffering from renal failure or insufficiency due to interference with other proteins. A/G RATIO 1.5 1.0 - 2.0 10/11/2022 11:32 AM [facility] CALCIUM 9.4 8.9 - 10.3 mg/dL 10/11/2022 11:32 AM [facility] T BILI 0.3 <=1.2 mg/dL 10/11/2022 11:32 AM SIGN MAINTENANCE [facility] SGOT (AST) 18 <=32 U/L 10/11/2022 11:32 AM SIGN MAINTENANCE [facility] SGPT (ALT) 14 <=41 U/L 10/11/2022 11:32 AM [facility] ALKALINE PHOSPHATASE 94 35 - 105 U/L 10/11/2022 11:32 AM SIGN MAINTENANCE [facility] GFR, ESTIMATED >60 >=60 10/11/2022 11:32 AM SIGN MAINTENANCE [facility] Comment: Creatinine Clearance is the preferred criteria for selecting drug dose adjustments in renally impaired patients. The GFR is provided as additional pertinent clinical information. GFR is reported in mL/min/1.73 sq m. Calculation based on the Chronic Kidney Disease Epidemiology Collaboration (CKD- EPI) equation refit without adjustment for race. GFR, EST. >60 >=60 023 11:32 AM SIGN MAINTENANCE [facility] GFR, EST. NONAFRICAN >60 >=60 10/11/2022 11:32 AM [facility] Blood No Phlebotomy Charged / Unknown 10/11/2022 10:40 AM SIGN MAINTENANCE 10/11/2022 11:07 AM SIGN MAINTENANCE Tati Paige MD CHEMISTRY ORDERABLES Final Resul t [facility] [address] [place] [address] documented in this encounter Visit Diagnoses Diagnosis Disruption of external operation (surgical) wound, not elsewhere classified, initial encounter documented in this encounter Additional Health Concerns Assessment Noted Time PHQ-9 Depression Total Score: 0 11/21/19 21 10:00 AM CDT documented as of this encounter Care Teams Night Shift Manager Relationship Specialty Start Date End Date Staci Segura, UNIT MANAGER, PHOTOGRAPHY PROFESSOR [address] [facility] [address] [address] [address] [address] PCP - General Advanced Practice Nurse 11/20/20 Lauro Bowles MD #[address] [address] Consulting Physician Cardiovascular Disease - Cardiology 04/16/22 10/27/24 Lexus Morrison APRN, FINANCIAL SERVICE PROFESSIONAL [address] [place] [address] Nurse Practitioner Advanced Practice Nurse 02/26/23 documented as of this encounter
--- OUTSIDE RECORDS SUMMARY | 2025-09-06 12:02 | XMS_ITS | Encounter Summary ---
Author Organization [facility] Address [address] [place] [address] Phone Care Team Providers Care Gospel Worker Name Role Phone Staci Segura FOAM TANK LAMINATOR, FORMING DEPARTMENT END FINDER Primary Care Prov ider Lauro Bowles MD Unavailable Lexus Long APRN, TELEMETRY RN Unavailable +1- [phone] Encounter Details Date Type Department Care Team (Late st Contact Info) Description 11/01/2022 [facility] [address] [place] [address] Brianna Sloan, FOAM TANK LAMINATOR, FORMING DEPARTMENT END FINDER #[address] [place] [address] Infection and inflammatory reaction due to other cardiac and vascular devices, implants and grafts, initial encounter (HCC); Other injury of unspecified body region, subsequent encounter Social History Tobacco Use Types Packs/Day [...] suspected to have Coronavirus/COVID-19? No / Unsure 11/01/2022 12:28 PM PERMACULTURE DESIGNER documented as of this encounter Plan of Treatment Upcoming Encounters Date Type Department Care Team (Late st Contact Info) Description 12/12/2025 10:00 AM CDT Office Visit [facility] - Neurology - [place] [address] [place] [address] Lexus Morrison, FOAM TANK LAMINATOR, TELEMETRY RN #2 [place] [address] 12/23/2025 8:00 AM CDT Office Visit [facility] - Family Medicine - [place] [address] [place] [address] Staci Segura, FOAM TANK LAMINATOR, FORMING DEPARTMENT END FINDER #[address] [address] documented as of this encounter Procedures Procedure Name Priority Date/Time Associated Diagnosis Comments CBC WITH AUTO DIFFERENTIAL Routine 11/01/2022 10:15 AM PERMACULTURE DESIGNER Infection and inflammatory reaction due to other cardiac and vascular devices, implants and grafts, initial encounter (HCC) Other injury of unspecified body region, subsequent encounter COMPLETE BLOOD COUNT (CBC) WITH DIFF Routine 11/01/2022 10:15 AM PERMACULTURE DESIGNER Infection and inflammatory reaction due to other cardiac and vascular devices, implants and grafts, initial encounter (HCC) Other injury of unspecified body region, subsequent encounter documented in this encounter Results * (ABNORMAL) CBC WITH AUTO DIFFERENTIAL (11/01/2022 10:15 AM PERMACULTURE DESIGNER) WBC 10.40 4.00 - 12.00 10(3)/mcL 11/01/2022 1:03 PM [facility] RBC 4.38 3.80 - 5.30 10(6)/mcL 11/01/2022 1:03 PM [facility] HEMOGLOBIN (HGB) 12.7 12.0 - 15.8 g/dL 11/01/2022 1:03 PM [facility] HEMATOCRIT (HCT) 39.5 36.0 - 47.0 % 11/01/2022 1:03 PM [facility] MCV 90.2 82.0 - 96.0 fL 11/01/2022 1:03 PM [facility] MCH 29.0 26.0 - 34.0 pg 11/01/2022 1:03 PM [facility] MCHC 32.2 31.0 - 36.0 g/dL 11/01/2022 1:03 PM [facility] PLATELET COUNT 227 140 - 440 10(3)/mcL 11/01/2022 1:03 PM [facility] RDW 18.5(H) 11.8 - 15.5 % 11/01/2022 1:03 PM [facility] MPV 11.1 9.7 - 12.4 fL 11/01/2022 1:03 PM [facility] NEUTROPHILS 65.3 47.0 - 73.0 % 11/01/2022 1:03 PM [facility] LYMPHOCYTES 23.8 18.0 - 42.0 % 11/01/2022 1:03 PM [facility] MONOCYTES 8.1 4.0 - 12.0 % 11/01/2022 1:03 PM [facility] EOSINOPHILS 2.2 0.0 - 5.0 % 11/01/2022 1:03 PM [facility] BASOPHILS 0.6 0.0 - 1.0 % 11/01/2022 1:03 PM [facility] ABSOLUTE NEUTROPHILS 6.80 1.60 - 7.70 10(3)/mcL 11/01/2022 1:03 PM [facility] ABSOLUTE LYMPHOCYTES 2.47 1.30 - 3.20 10(3)/mcL 11/01/2022 1:03 PM PERMACULTURE DESIGNER [facility] ABSOLUTE MONOCYTES 0.84 0.20 - 1.00 10(3)/mcL 11/01/2022 1:03 PM PERMACULTURE DESIGNER [facility] ABSOLUTE EOSINOPHIL 0.23 0.00 - 0.40 10(3)/[facility] 11/01/2022 1:03 PM PERMACULTURE DESIGNER [facility] ABSOLUTE BASOPHILS 0.06 0.00 - 0.10 10(3)/[facility] 11/01/2022 1:03 PM PERMACULTURE DESIGNER [facility] NRBC PER 100 WBC 0 11/01/19 1:03 PM PERMACULTURE DESIGNER [facility] Blood No Phlebotomy Charged / Unknown 11/01/2022 10:15 AM PERMACULTURE DESIGNER 11/01/2022 1:01 PM PERMACULTURE DESIGNER Brianna Sloan APRN, FORMING DEPARTMENT END FINDER HEMATOLOGY ORDERABLES Fi nal Result [facility] [address] [place] [address] documented in this encounter Visit Diagnoses Diagnosis Infection and inflammatory reaction due to other cardiac and vascular devices, implants and grafts, initial encounter Other injury of unspecified body region, subsequent encounter documented in this encounter Additional Health Concerns Assessment Noted Time PHQ-9 Depression Total Score: 0 11/21/19 21 10:00 AM CDT documented as of this encounter Care Teams Gospel Worker Relationship Specialty Start Date End Date Staci Segura APRN, FORMING DEPARTMENT END FINDER #2 [facility] [place] [address] PCP - General Advanced Practice Nurse 11/20/20 Lauro Bowles MD #2 [facility] [address] [place] [address] Consulting Physician Cardiovascular Disease - Cardiology 04/16/22 10/27/24 Lexus Morrison APRN, TELEMETRY RN #2 [place] [address] Nurse Practitioner Advanced Practice Nurse 02/26/23 documented as of this encounter
--- OUTSIDE RECORDS SUMMARY | 2025-09-06 12:02 | XMS_ITS | Encounter Summary ---
Author Organization [facility] Address [address] [place] [phone] Phone Care Team Providers Care Research Program Intern Name Role Phone Staci Segura APRN, ENGINE DESIGNER Primary Care Prov ider Lauro Bowles MD Unavailable Lexus Long APRN, MDS RN Unavailable +1- [phone] Encounter Details Date Type Department Care Team (Late st Contact Info) Description 10/14/2022 [facility] [address] [place] [address] Paige Gillespie MD [address] [place] [address] Disruption of external operation (surgical) wound, not elsewhere classified, initial encounter Social History Tobacco Use Types Packs/Day Years Used Date Smoking Tobacco: Former Cigarettes 1 38 1 - 06/22/2020 Smokeless Tobacco: Never Alcohol Use Standard Drinks/Week Comments Not Currently 0 (1 standard drink = 0.6 oz pur e alcohol) PHQ-2 Answer Date Recorded Total Score - Questions 1-9 0 0701/2022 Sexually Active Control Partners Comments Not Currently [...] was confirmed or suspected to have Coronavirus/COVID-19? Unable to assess 10/17/2022 3:31 PM SCRAPER OPERATOR documented as of this encounter Plan of Treatment Upcoming Encounters Date Type Department Care Team (Late st Contact Info) Description 12/12/2025 10:00 AM CDT Office Visit [facility] - Neurology - [place] [address] [place] [address] Lexus Morrison, CARDER BLANKETS, MDS RN #2 [place] [address] 12/23/2025 8:00 AM CDT Office Visit [facility] - Family Medicine - [place] [address] [place] [address] Staci Segura, CARDER BLANKETS, ENGINE DESIGNER #[address] [phone] documented as of this encounter Procedures Procedure Name Priority Date/Time Associated Diagnosis Comments CBC WITH AUTO DIFFERENTIAL Routine 10/14/2022 12:30 PM SCRAPER OPERATOR Disruption of external operation (surgical) wound, not elsewhere classified, initial encounter HEPATIC FUNCTION PANEL Routine 10/14/2022 12:30 PM SCRAPER OPERATOR Disruption of external operation (surgical) wound, not elsewhere classified, initial encounter CMP (COMPREHENSIVE METABOLIC PANEL) Routine 10/14/2022 12:30 PM SCRAPER OPERATOR Disruption of external operation (surgical) wound, not elsewhere classified, initial encounter COMPLETE BLOOD COUNT (CBC) WITH DIFF Routine 10/14/2022 12:30 PM SCRAPER OPERATOR Disruption of external operation (surgical) wound, not elsewhere classified, initial encounter documented in this encounter Results * (ABNORMAL) CBC WITH AUTO DIFFERENTIAL (10/14/2022 12:30 PM SCRAPER OPERATOR) [facility] WBC 9.58 4.00 - 12.00 10(3)/mcL 10/14/2022 2:22 PM [facility] RBC 3.75(L) 3.80 - 5.30 10(6)/mcL 10/14/2022 2:22 PM [facility] HEMOGLOBIN (HGB) 10.7(L) 12.0 - 15.8 g/dL 10/14/2022 2:22 PM [facility] HEMATOCRIT (HCT) 33.7(L) 36.0 - 47.0 % 10/14/2022 2:22 PM [facility] MCV 89.9 82.0 - 96.0 fL 10/14/2022 2:22 PM [facility] MCH 28.5 26.0 - 34.0 pg 10/14/2022 2:22 PM [facility] MCHC 31.8 31.0 - 36.0 g/dL 10/14/2022 2:22 PM [facility] PLATELET COUNT 201 140 - 440 10(3)/mcL 10/14/2022 2:22 PM [facility] RDW 18.6(H) 11.8 - 15.5 % 10/14/2022 2:22 PM [facility] MPV 12.0 9.7 - 12.4 fL 10/14/2022 2:22 PM [facility] NEUTROPHILS 62.0 47.0 - 73.0 % 10/14/2022 2:22 PM [facility] LYMPHOCYTES 27.7 18.0 - 42.0 % 10/14/2022 2:22 PM [facility] MONOCYTES 6.3 4.0 - 12.0 % 10/14/2022 2:22 PM [facility] EOSINOPHILS 3.5 0.0 - 5.0 % 10/14/2022 2:22 PM [facility] BASOPHILS 0.5 0.0 - 1.0 % 10/14/2022 2:22 PM SCRAPER OPERATOR [facility] ABSOLUTE NEUTROPHIL[facility] 5.94 1.60 - 7.70 10(3)/[facility] 10/14/2022 2:22 PM SCRAPER OPERATOR [facility] ABSOLUTE LYMPHOCYTES 2.65 1.30 - 3.20 10(3)/[facility] 10/14/2022 2:22 PM SCRAPER OPERATOR [facility] ABSOLUTE MONOCYTES 0.60 0.20 - 1.00 10(3)/[facility] 10/14/2022 2:22 PM SCRAPER OPERATOR [facility] ABSOLUTE EOSINOPHIL 0.34 0.00 - 0.40 10(3)/[facility] 10/14/2022 2:22 PM SCRAPER OPERATOR [facility] ABSOLUTE BASOPHILS 0.05 0.00 - 0.10 10(3)/[facility] 10/14/2022 2:22 PM SCRAPER OPERATOR [facility] NRBC PER 100 WBC 0 10/14/19 2:22 PM [facility] Blood No Phlebotomy Charged / Unknown 10/14/2022 12:30 PM SCRAPER OPERATOR 10/14/2022 2:17 PM SCRAPER OPERATOR us Paige Gillespie MD HEMATOLOGY ORDERABLES Fin al Result [facility] #1 [place] [address] * (ABNORMAL) HEPATIC FUNCTION PANEL (10/14/2022 12:30 PM SCRAPER OPERATOR) T BILI <0.3 <=1.2 mg/dL 10/14/2022 2:40 PM SCRAPER OPERATOR [facility] BILIRUBIN,DIRECT <0.3 <=0.3 mg/dL 10/14/2022 2:40 PM SCRAPER OPERATOR [facility] ALKALINE PHOSPHATASE 106(H) 35 - 105 U/L 10/14/2022 2:40 PM SCRAPER OPERATOR [facility] SGOT (AST) 15 <=32 U/L 10/14/2022 2:40 PM SCRAPER OPERATOR [facility] SGPT (ALT) 11 <=41 U/L 10/14/2022 2:40 PM SCRAPER OPERATOR [facility] TOTAL PROTEIN 6.8 6.0 - 8.3 g/dL 10/14/2022 2:40 PM SCRAPER OPERATOR [facility] ALBUMIN 4.0 3.5 - 5.2 g/dL 10/14/2022 2:40 PM [facility] Comment: The colormetric methods used for the determination of Albumin may lead to falsely elevated test results in patients suffering from renal failure or insufficiency due to interference with other proteins. Blood No Phlebotomy Charged / Unknown 10/14/2022 12:30 PM SCRAPER OPERATOR 10/14/2022 2:17 PM SCRAPER OPERATOR us Paige Gillespie MD CHEMISTRY ORDERABLES Soraya l Result [facility] #[address] [place] [address] * (ABNORMAL) CMP (COMPREHENSIVE METABOLIC PANEL) (10/14/2022 12:30 PM SCRAPER OPERATOR) SODIUM 139 136 - 144 mmol/L 10/14/2022 2:39 PM [facility] POTASSIUM 3.1(L) 3.5 - 5.1 mmol/L 10/14/2022 2:39 PM [facility] CHLORIDE 104 100 - 110 mmol/L 10/14/2022 2:39 PM [facility] CO2, VENOUS 24 22 - 32 mmol/L 10/14/2022 2:39 PM SCRAPER OPERATOR [facility] ANION GAP 14.1 8.0 - 20.0 mmol/L 10/14/2022 2:39 PM [facility] GLUCOSE 123(H) 70 - 99 mg/dL 10/14/2022 2:39 PM [facility] BUN 13 6 - 20 mg/dL 10/14/2022 2:39 PM [facility] CREATININE, BLOOD 0.68 0.60 - 1.10 mg/dL 10/14/2022 2:39 PM [facility] BUN/CREATININE RATIO 19 12 - 20 ratio 10/14/2022 2:39 PM [facility] TOTAL PROTEIN 6.8 6.0 - 8.3 g/dL 10/14/2022 2:39 PM [facility] ALBUMIN 4.0 3.5 - 5.2 g/dL 10/14/2022 2:39 PM [facility] Comment: The colormetric methods used for the determination of Albumin may lead to falsely elevated test results in patients suffering from renal failure or insufficiency due to interference with other proteins. A/G RATIO 1.4 1.0 - 2.0 10/14/2022 2:39 PM [facility] CALCIUM 9.6 8.9 - 10.3 mg/dL 10/14/2022 2:39 PM [facility] T BILI <0.3 <=1.2 mg/dL 10/14/2022 2:39 PM [facility] SGOT (AST) 15 <=32 U/L 10/14/2022 2:39 PM [facility] SGPT (ALT) 11 <=41 U/L 10/14/2022 2:39 PM [facility] ALKALINE PHOSPHATASE 106(H) 35 - 105 U/L 10/14/2022 2:39 PM [facility] GFR, ESTIMATED >60 >=60 10/14/2022 2:39 PM [facility] Comment: Creatinine Clearance is the preferred criteria for selecting drug dose adjustments in renally impaired patients. The GFR is provided as additional pertinent clinical information. GFR is reported in mL/min/1.73 sq m. Calculation based on the Chronic Kidney Disease Epidemiology Collaboration (CKD- EPI) equation refit without adjustment for race. GFR, EST. >60 >=60 023 2:39 PM [facility] GFR, EST. NONAFRICAN >60 >=60 10/14/2022 2:39 PM [facility] Blood No Phlebotomy Charged / Unknown 10/14/2022 12:30 PM SCRAPER OPERATOR 10/14/2022 2:17 PM SCRAPER OPERATOR Paige Gillespie MD CHEMISTRY ORDERABLES Soraya ocampo Result [facility] #[address] [place] [address] documented in this encounter Visit Diagnoses Diagnosis Disruption of external operation (surgical) wound, not elsewhere classified, initial encounter documented in this encounter Additional Health Concerns Assessment Noted Time PHQ-9 Depression Total Score: 0 11/21/19 21 10:00 AM CDT documented as of this encounter Care Teams Research Program Intern Relationship Specialty Start Date End Date Staci Segura, CARDER BLANKETS, ENGINE DESIGNER #[address] [address] PCP - General Advanced Practice Nurse 11/20/20 Lauro Bowles MD #[address] [address] Consulting Physician Cardiovascular Disease - Cardiology 04/16/22 10/27/24 Lexus Morrison APRN, MDS RN #2 [place] [address] Nurse Practitioner Advanced Practice Nurse 02/26/23 documented as of this encounter
--- OUTSIDE RECORDS SUMMARY | 2025-09-06 12:02 | XMS_ITS | Clinical Summary ---
Author Organization [employer] & [facility] lin Address [address] [place] [address] Care Team Providers Care Sonar Subsystem Equipment Operator Name Role Phone Unavailable Primary Care Provider Unavailabl e Allergies No known active allergies Medications acetaminophen 325 MG 650 mg tablet Take 650 mg by mouth. 1 Active aspirin 81 MG chewable tablet Take 81 mg by mouth. 0 Active atorvastatin 80 MG 80 mg tablet Take 80 mg by mouth. 1 Active clopidogreL (PLAVIX) 75 mg tablet Take 75 mg by mouth. 1 Active escitalopram oxalate (LEXAPRO) 5 MG tablet Take 5 mg by mouth. 2 Active oxybutynin (DITROPAN-XL) 5 MG 24 hr tablet Take 1 tablet by mouth. 1 Active polyethylene glycol (GLYCOLAX) 17 gram/dose powder Take 17 g by mouth. 2 Active senna (SENOKOT) 8.6 mg tablet Take 1 tablet by mouth. 2 Active senna-docusate (PERICOLACE) 8.6-50 mg Take 1 tablet up to twice daily as needed for constipation 1 Active traMADoL (ULTRAM) 50 mg tablet Take 50-100 mg by mouth. 2 Active apixaban (Eliquis) 5 mg Take 5 mg by mouth. 2 Active oxyCODONE (ROXICODONE) 5 MG immediate release tablet Take 5 mg by mouth. 2 Active Active Problems Patient Care Coordination No te Formatting of this note migh t be different from the original. [facility] 2 Address: [facility] , [place] [address] 4 LABS AND LINE CARE Problem Noted Date Diagnosed Date Bacteremia 05/30/2022 Social History Tobacco Use Types Packs/Day Years Used Date Smoking Tobacco: Never Assessed Comments Unknown Sex and Gender Information Value Date Recorded Sex Assigned at Not on file Legal Sex Female 4:33 PM EDT Gender Identity Not on file Sexual Orientation Not on file Last Filed Vital Signs Vital Sign Reading Time Taken Comments Blood Pressure - - Pulse - - Temperature - - Respiratory Rate - - Oxygen Saturation - - Inhaled Oxygen Concentration - - Weight 93.4 kg (205 lb 14.6 oz) 05/30/2022 7:00 AM PDT Height 165.1 cm (5' 5) 05/30/2022 7:00 AM PDT Body Mass Index 34.27 05/30/2022 7:00 AM PDT Plan of Treatment Not on file Medical Devices Not on file Insurance [employer] - MEDICARE
--- OUTSIDE RECORDS SUMMARY | 2025-09-06 12:02 | XMS_ITS | Encounter Summary ---
Author Organization [facility] Address [address] [place] [address] Phone Care Team Providers Care Technical Stenographer Name Role Phone Staci Segura APRN, ROUNDHOUSE WORKER Primary Care Prov ider Lauro Bowles MD Unavailable UnaLexus Suarez APRN, BIOCHEMICAL DEVELOPMENT ENGINEER Unavailable [phone]- [phone] Reason for Visit * Reason Comments Medication Refill Encounter Details Date Type Department Care Team (Late st Contact Info) Description 10/13/2023 Refill [facility] - Neurology - [place] [address] [place] [address] Lexus Morrison, PROJECT DESIGNER, BIOCHEMICAL DEVELOPMENT ENGINEER [address] [place] [address] Medication Refill Social History Tobacco Use Types [...] encounter Miscellaneous Notes * Telephone Encounter - Ember Marcano RN - 10/13/2023 8:16 AM CST Medication failed the protocol, provider to review and approve the medication order if appropriate. Requested Prescriptions Pending Prescriptions Disp Refills Escitalopram Oxalate 5 MG Tablet [Pharmacy Med Name: ESCITALOPRAM 5 MG TABLET] 90 Tablet 0 Sig: TAKE 1 TABLET BY MOUTH EVERY DAY SSRI (6 Month Refill Only) Protocol Failed - 10/13/2023 12:35 AM Failed - Has an encounter in the past 6 months with a depression, anxiety, adjustment disorder, OCD, or PTSD visit diagnosis Passed - No test in the past 12 months or most recent test was negative Passed - No active on record Passed - Visit with relevant provider in past 6 months or upcoming 90 days Recent Visits Date Type Provider Dept 09/12/23 Office Visit Staci Segura APRN, ROUNDHOUSE WORKER [facility] 08/28/23 Office Visit Lexus Morrison APRN, BIOCHEMICAL DEVELOPMENT ENGINEER [facility] Neurology [facility] Showing recent visits within past 182 days and meeting all other requirements Future Appointments Date Type Provider Dept 12/15/23 Appointment Staci Segura APRN, MAC[facility] Showing future appointments within next 90 days and meeting all other requirements Passed - Patient has established therapy with SSRI for at least 6 months MANUFACTURING ENGINEER documented in this encounter Plan of Treatment Upcoming Encounters Date Type Department Care Team (Late st Contact Info) Description 12/12/2025 10:00 AM CDT Office Visit [facility] - Neurology - [place] [address] [place] [address] Lexus Morrison APRN, BIOCHEMICAL DEVELOPMENT ENGINEER [address] [place] [address] 12/23/2025 8:00 AM CDT Office Visit [facility] - Family Medicine [facility] [address] [place] [address] Staci Segura APRN, ROUNDHOUSE WORKER [address] [address] documented as of this encounter Visit Diagnoses Diagnosis Depression, unspecified depression type documented in this encounter Additional Health Concerns Assessment Noted Time PHQ-9 Depression Total Score: 0 11/21/19 21 10:00 AM CDT documented as of this encounter Care Teams Technical Stenographer Relationship Specialty Start Date End Date Staci Segura APRN, ROUNDHOUSE WORKER [address] [address] PCP - General Advanced Practice Nurse 11/20/20 Lauro Bowles MD [address] [address] Consulting Physician Cardiovascular Disease - Cardiology 04/16/22 10/27/24 Lexus Morrison APRN, BIOCHEMICAL DEVELOPMENT ENGINEER [address] [place] [address] Nurse Practitioner Advanced Practice Nurse 02/26/23 documented as of this encounter
--- OUTSIDE RECORDS SUMMARY | 2025-09-06 12:02 | XMS_ITS | Encounter Summary ---
Author Organization [facility] Address [address] [place] [address] Phone Care Team Providers Care Fiscal Services Manager Name Role Phone Staci Segura APRN, PRODUCTION STAFF WORKER Primary Care Prov ider Lauro Bowles MD Unavailable Lexus Long APRN, HEALTH SAFETY SPECIALIST Unavailable [phone]- [phone] Encounter Details Date Type Department Care Team (Late st Contact Info) Description 10/23/2022 Lab Requisition [facility] [address] [place] [address] Shannan Alvarenga APN [address] [place] [address] Disruption of external operation (surgical) wound, not elsewhere classified, sequela Social History Tobacco Use Types Packs/Day [...] suspected to have Coronavirus/COVID-19? No / Unsure 10/25/2022 10:25 AM FISHER documented as of this encounter Plan of Treatment Upcoming Encounters Date Type Department Care Team (Late st Contact Info) Description 12/12/2025 10:00 AM CDT Office Visit [facility] - Neurology - [place] [address] [place] [address] Lexus Morrison, RN REVIEW, HEALTH SAFETY SPECIALIST [address] [place] [address] 12/23/2025 8:00 AM CDT Office Visit [facility] - Family Medicine - [place] [address] [place] [phone] Staci Segura, RN REVIEW, PRODUCTION STAFF WORKER [address] [phone] documented as of this encounter Procedures Procedure Name Priority Date/Time Associated Diagnosis Comments BASIC METABOLIC PANEL W/ CALCIUM TOTAL Routine 10/23/2022 9:30 AM FISHER Disruption of external operation (surgical) wound, not elsewhere classified, sequela documented in this encounter Results * BASIC METABOLIC PANEL W/ CALCIUM TOTAL (10/23/2022 9:30 AM FISHER) SODIUM 138 136 - 144 mmol/L 10/23/2022 1:48 PM FISHER [facility] POTASSIUM 4.1 3.5 - 5.1 mmol/L 10/23/2022 1:48 PM FISHER [facility] CHLORIDE 101 100 - 110 mmol/L 10/23/2022 1:48 PM FISHER [facility] CO2, VENOUS 24 22 - 32 mmol/L 10/23/2022 1:48 PM FISHER [facility] ANION GAP 17.1 8.0 - 20.0 mmol/L 10/23/2022 1:48 PM FISHER [facility] GLUCOSE 97 70 - 99 mg/dL 10/23/2022 1:48 PM FISHER [facility] BUN 12 6 - 20 mg/dL 10/23/2022 1:48 PM FISHER [facility] CREATININE, BLOOD 0.80 0.60 - 1.10 mg/dL 10/23/2022 1:48 PM FISHER [facility] BUN/CREATININE RATIO 15 12 - 20 ratio 10/23/2022 1:48 PM FISHER [facility] CALCIUM 9.8 8.9 - 10.3 mg/dL 10/23/2022 1:48 PM FISHER [facility] GFR, ESTIMATED >60 >=60 10/23/2022 1:48 PM FISHER [facility] Comment: Creatinine Clearance is the preferred criteria for selecting drug dose adjustments in renally impaired patients. The GFR is provided as additional pertinent clinical information. GFR is reported in mL/min/1.73 sq m. Calculation based on the Chronic Kidney Disease Epidemiology Collaboration (CKD- EPI) equation refit without adjustment for race. GFR, EST. >60 >=60 023 1:48 PM FISHER [facility] GFR, EST. NONAFRICAN >60 >=60 10/23/2022 1:48 PM FISHER [facility] Blood No Phlebotomy Charged / Unknown 10/23/2022 9:30 AM FISHER 10/23/2022 12:58 PM FISHER us Shannan Alvarenga APN CHEMISTRY ORDERABLE S Final Result [facility] [address] [place] [address] documented in this encounter Visit Diagnoses Diagnosis Disruption of external operation (surgical) wound, not elsewhere classified, sequela documented in this encounter Additional Health Concerns Assessment Noted Time PHQ-9 Depression Total Score: 0 11/21/19 21 10:00 AM CDT documented as of this encounter Care Teams Fiscal Services Manager Relationship Specialty Start Date End Date Staci Segura, RN REVIEW, PRODUCTION STAFF WORKER [address] [phone] PCP - General Advanced Practice Nurse 11/20/20 Lauro Bowles MD #[address] [address] Consulting Physician Cardiovascular Disease - Cardiology 04/16/22 10/27/24 Lexus Morrison APRN, HEALTH SAFETY SPECIALIST [address] [place] [address] Nurse Practitioner Advanced Practice Nurse 02/26/23 documented as of this encounter
--- OUTSIDE RECORDS SUMMARY | 2025-09-06 12:02 | XMS_ITS | Encounter Summary ---
Author Organization [facility] Address [address] [place] [address] Phone Care Team Providers Care Home Security Professional Name Role Phone Staci Segura APRN, MUFFLER INSTALLER Primary Care Prov ider Lauro Bowles MD Unavailable Lexus Long APRN, SAP TRAINER Unavailable [phone]- [phone] Reason for Visit * Reason Comments Medication Refill Encounter Details Date Type Department Care Team (Late st Contact Info) Description 07/10/2023 Refill [facility] - Neurology - [place] [address] [place] [address] Lexus Morrison, DISPLAY SCREEN FABRICATOR, SAP TRAINER [address] [place] [address] Medication Refill Social History Tobacco Use Types [...] Telephone Encounter - Ember Marcano RN - 07/10/2023 3:18 PM CDT Medication failed the protocol, provider to review and approve the medication order if appropriate. Requested Prescriptions Pending Prescriptions Disp Refills Escitalopram Oxalate 5 MG Tablet [Pharmacy Med Name: ESCITALOPRAM 5 MG TABLET] 90 Tablet 0 Sig: TAKE 1 TABLET BY MOUTH EVERY DAY SSRI (6 Month Refill Only) Protocol Failed - 07/10/2023 1:30 PM Failed - Has an encounter in the past 6 months with a depression, anxiety, adjustment disorder, OCD, or PTSD visit diagnosis Passed - No test in the past 12 months or most recent test was negative Passed - No active on record Passed - Visit with relevant provider in past 6 months or upcoming 90 days Recent Visits Date Type Provider Dept 02/26/23 Office Visit Lexus Morrison APRN, [facility] Neurology [place] Showing recent visits within past 182 days and meeting all other requirements Future Appointments Date Type Provider Dept 08/28/23 Appointment Lexus Morrison APRN, [facility] Neurology [place] Showing future appointments within next 90 days and meeting all other requirements Passed - Patient has established therapy with SSRI for at least 6 months documented in this encounter Plan of Treatment Upcoming Encounters Date Type Department Care Team (Late st Contact Info) Description 12/12/2025 10:00 AM CDT Office Visit [facility] - Neurology - [place] [address] [place] [address] Lexus Morrison APRN, SAP TRAINER [address] [facility] [place] [address] 12/23/2025 8:00 AM CDT Office Visit [facility] - Family Medicine - [place] [address] [place] [address] Staci Segura APRN, MUFFLER INSTALLER #[address] [address] documented as of this encounter Visit Diagnoses Diagnosis Depression, unspecified depression type documented in this encounter Additional Health Concerns Assessment Noted Time PHQ-9 Depression Total Score: 0 11/21/19 21 10:00 AM CDT documented as of this encounter Care Teams Home Security Professional Relationship Specialty Start Date End Date Staci Segura APRN, MUFFLER INSTALLER [address] [address] PCP - General Advanced Practice Nurse 11/20/20 Lauro Bowles MD #[address] [address] Consulting Physician Cardiovascular Disease - Cardiology 04/16/22 10/27/24 Lexus Morrison APRN, SAP TRAINER [address] [place] [address] Nurse Practitioner Advanced Practice Nurse 02/26/23 documented as of this encounter
--- OUTSIDE RECORDS SUMMARY | 2025-09-06 12:02 | XMS_ITS | Encounter Summary ---
Author Organization [facility] Address [address] [place] [address] Phone Care Team Providers Care Mail Processing Equipment Mechanic Name Role Phone Staci Segura APRN, CONSUMER LOAN PROCESSOR Primary Care Prov ider Lauro Bowles MD Unavailable UnaLexus Suarez APRN, HOME HEALTH RN Unavailable [phone]- [phone] Reason for Visit * Reason Comments Medication Refill Encounter Details Date Type Department Care Team (Late st Contact Info) Description 10/24/2022 Refill [facility] - Neurology - [place] [address] [place] [address] Lexus Morrison, SOFTWARE QUALITY ASSURANCE ANALYST, HOME HEALTH RN [address] [place] [address] Medication Refill Social History Tobacco Use Types [...] Coronavirus/COVID-19? No / Unsure 10/25/2022 10:25 AM CASING TESTER documented as of this encounter Plan of Treatment Upcoming Encounters Date Type Department Care Team (Late st Contact Info) Description 12/12/2025 10:00 AM CDT Office Visit [facility] Neurology [facility] [address] [place] [address] Lexus Morrison APRN, HOME HEALTH RN [address] [place] [address] 12/23/2025 8:00 AM CDT Office Visit [facility] Family Medicine [facility] [address] [place] [address] Staci Segura APRN, CONSUMER LOAN PROCESSOR #[address] [phone] documented as of this encounter Visit Diagnoses Diagnosis Depression, unspecified depression type documented in this encounter Additional Health Concerns Assessment Noted Time PHQ-9 Depression Total Score: 0 11/21/19 21 10:00 AM CDT documented as of this encounter Care Teams Mail Processing Equipment Mechanic Relationship Specialty Start Date End Date Staci Segura APRN, CONSUMER LOAN PROCESSOR #[address] [address] PCP - General Advanced Practice Nurse 11/20/20 Lauro Bowles MD [address] [address] Consulting Physician Cardiovascular Disease - Cardiology 04/16/22 10/27/24 Lexus Morrison APRN, HOME HEALTH RN [address] [place] [address] Nurse Practitioner Advanced Practice Nurse 02/26/23 documented as of this encounter
--- OUTSIDE RECORDS SUMMARY | 2025-09-06 12:02 | XMS_ITS | Clinical Summary ---
Author Organization [facility] Address [address] [place] [address] Care Team Providers Care Laboratory Courier Name Role Phone MengRadha PATRICIA Unavailable Unavailable Lydia Whelan Unavailable Unavailable Staci Segura NP Primary Care Provider + Paige Gillespie MD Unavailable [phone] Janine Jennings NP Unavailable [phone] Allergies No known active allergies Medications atorvastatin (LIPITOR) 80 mg tablet Take 1 tablet (80 mg total) by mouth nightly at bedtime. 03/21/20 21 Active Klor-Con M20 20 mEq CR tablet TAKE 2 TABLETS BY MOUTH DAILY FOR 3 DAYS, THEN 1 TABLET DAILY FOR 30 DAYS. 06/20/20 22 Active oxybutynin XL (DITROPAN-XL) 5 mg 24 hr tablet Take 1 tablet (5 mg total) by mouth daily 05/29/20 22 Active escitalopram (LEXAPRO) 5 mg tablet Take 1 tablet (5 mg total) by mouth 01/20/20 22 Active multivitamin-i oj-folic acid 18-400 mg-mcg tablet Take 1 tablet by mouth daily Active acetaminophen 500 mg capsule Take 2 capsules (1,000 mg total) by mouth every 6 (six) hours 240 tablet 10/08/19 23 Active aspirin 81 mg chewable tablet Take 1 tablet (81 mg total) by mouth daily 01/20/20 22 Active apixaban (Eliquis) 5 mg tabletIndicati ons:Venous Thrombosis Take 1 tablet (5 mg total) by mouth every 12 (twelve) hours 60 tablet 3 06/14/20 24 Active ergocalciferol (VITAMIN D) 50,000 unit capsule Take 1.25 mg by mouth once a week 12/25/19 25 Active clopidogreL (PLAVIX) 75 mg tablet TAKE 1 TABLET BY MOUTH EVERY DAY 90 tablet 1 07/08/20 25 Active doxycycline (VIBRAMYCIN) 100 mg capsule Take 1 tablet/capsule (100 mg total) by mouth every 12 (twelve) hours 60 tablet/capsu le 6 07/11/20 25 Active fluconazole (DIFLUCAN) 200 mg tablet Take 1 tablet (200 mg total) by mouth daily Last seen 08/2024. Must scheduled ID visit for additional fills. 30 tablet 3 07/11/20 25 026 Active levoFLOXacin (LEVAQUIN) 500 mg tablet TAKE 1 TABLET (500 MG TOTAL) BY MOUTH DAILY FOR 30 DOSES 30 tablet 08/22/20 25 026 Active levoFLOXacin (LEVAQUIN) 500 mg tablet Take 1 tablet (500 mg total) by mouth daily for 30 doses 30 tablet 07/11/20 25 025 Discontinued Active Problems Problem Noted Date Diagnosed Date Encounter for surgical after care following surgery on the circulatory system 01/18/2025 Encounter for long-term (current) use of antibio tics 02/20/2023 Wound healing, delayed 09/28/2022 Assessment & Plan (10/07/2022 11:19 AM INTEGRATIVE MEDICINE PHYSICIAN): Wound on lateral aspect of the thigh of approximately 4 x 3 cm with granulation tissue and scant purulent drainage. There is associated swelling and erythema. 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 - OR 10/01/22 for debridement and wound vac placement. Wound 5X3.5X3. - OR cultures + pseudomonas. - Continue cefepime x 2 weeks (10/01-10/16) and fluconazole PO per ID. ID follow up scheduled for 10/17 - wound ostomy consult for wound vac changes. First change 10/04 - Discharge planning for home with IV antibiotics and wound vac. Plan to DC 10/08. 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 Continues to do well on suppressive antibiotic and antifungal therapy without adverse effects here for a refill on her prescriptions - No change to treatment - Reviewed EMR for recent labs, previous Infectious disease notes, imaging and procedures & VS relevant to today's appt. - Please Continue fluconazole 200 mg PO daily, doxycycline 100 mg PO BID and levofloxacin 500 mg PO daily - Prescriptions refilled today - EKG obtained while in clinic today - Declines Influenza and Covid vaccines at this time - Patient to follow up in 6 mos Assessment & Plan (08/23/2024 12:20 PM INTEGRATIVE MEDICINE PHYSICIAN): - Doing well on exam today with no open wounds to her left groin or other concern for infection. She remains on suppressive antibiotic and antifungal therapy without adverse effects. - Continue fluconazole 200 mg PO daily, doxycycline 100 mg PO BID and levofloxacin 500 mg PO daily for chronic suppression due to retained vascular graft in the setting of polymicrobial infection. Plan to continue infinitely. - Recent labs reviewed, no change to current antibiotic therapy - EKG today with normal QTc - Discussed with patient the rational for treatment, culture results, risk of recurrent infection, signs/symptoms of recurrent infection, and to contact ID clinic with any questions or concerns - Influenza and covid vaccine offered, patient declined Assessment & Plan (11/03/2023 1:46 PM INTEGRATIVE MEDICINE PHYSICIAN): - Doing well on exam today with no open wounds to her left groin or other concern for infection. She remains on fluconazole but is not currently taking levofloxacin or doxycycline. She has not noticed any changes since stopping levofloxacin or doxycycline ~2 months ago - Continue fluconazole 200 mg PO daily and restart doxycycline 100 mg PO BID and levofloxacin 500 mg PO daily for chronic suppression due to retained vascular graft in the setting of polymicrobial infection. Plan to continue infinitely - Discussed the importance of compliance with antimicrobials to prevent recurrent infection. If she has any issues with filling medications she should call her pharmacy or the ID clinic to discuss - Discussed with patient the rational for treatment, culture results, risk of recurrent infection, signs/symptoms of recurrent infection, and to contact ID clinic with any questions or concerns Anemia 05/23/2022 Assessment & Plan (07/15/2022 10:57 AM INTEGRATIVE MEDICINE PHYSICIAN): Chronic. Baseline hgb ~12 - transfuse for hgb <7 - Daily CBC, keep type and screen active Assessment & Plan (05/30/2022 8:52 AM CDT): Baseline hgb ~12 -transfuse for hgb <7 -monitor for bleeding - 1u PRBC given 05/26 for hbg 6.9. Now stable at 8.9 today CVA (cerebral vascular accident) 05/21/2022 Assessment & Plan (07/13/2022 6:45 AM CDT): History of CVA, L MCA ischemic stroke secondary to L ICA occlusion. Has residual aphasia - Continue aspirin and statin. Holding home Plavix - PT/ OT/ OOB. Assessment & Plan (05/30/2022 8:52 AM CDT): - History of CVA, L MCA ischemic stroke secondary to L ICA occlusion - She had improvement with tPA. She then had recurrence of symptoms and was found to have left ICA occlusion. After rehab, there were plans for possible EC/IC bypass, but after evaluation with Dr. Bar, not felt to have benefit for STA to MCA bypass. DAPT recommended by [facility] Vascular Neurology. - Followed by outpatient Neurologist/[facility] - Maintained on aspirin + Plavix and statin as an outpatient - Has residual severe expressive aphasia - Continue PT/OT. PVD (peripheral vascular disease) 05/17/2022 Assessment & Plan (07/16/2022 7:03 AM INTEGRATIVE MEDICINE PHYSICIAN): hx of severe PVD. S/p RP aortobifemoral bypass and left common femoral to AK popliteal artery bypass in 2015. Then lost to follow up for many years. She represented in 05/2022 with occlusion of the L fem-pop bypass and L limb of the aortobifem (chronic) as well as evidence of infection of the left fem-pop bypass. - stop ASA, start plavix 07/16 -increase heparin gtt to therapeutic 07/13, no boluses -Plan for Plavix/ Eliquis at discharge Assessment & Plan (05/17/2022 7:22 PM CDT): - CT aorta with bilateral iliofemoral runoffs with venous delays: - BCx, tissue culture - Start heparin gtt, hold Xarelto (home med 2.5mg BID) - Start IV vancomycin, zosyn Assessment & Plan (05/30/2022 8:51 AM CDT): Patient presented to OSH on 05/12 & 05/14 for bleeding and pain from LLE. On 05/14 CT showed concern for infection of graft so it was recommended she come to [facility] ED. - CT aorta with bilateral iliofemoral runoffs with venous delays demonstrating LLE occluded aortofemoral/femoropopliteal bypass graft w/ 2v runoff. RLE no significant stenosis. - TTE: EF 67%, G2DD, carotid US: R carotid <50% & severe stenosis or complete occlusion of L carotid, and PET CT: concern for infection of left femoro- popliteal graft with extension to L femoral graftinto the left inguinal region - Blood cultures on arrival; NGTD - s/p OR on 05/23 for graft explant and removal of LLE bypass. Left common femoral endarterectomy with patch onto profunda and successful recanalization of the tlingit & haida left iliac system. -Initially started on heparin gtt and now transitioned to Eliquis. Continue aspirin and Plavix. - ID consulted: now signed off with: Recommend Micafungin 100mg Q24H x 4-6 week (given endovascular focus). PICC line placed 05/27. Home infusion order placed. Patient medically stable to go home on home infusion but family keeps no showing for the teaching sessions. If Beto does not show again today then will need to talk to patient about SNF. -Plastics following for previous graft elevation in OR. Needs 1 week follow up with PRS after discharge. - Activity as tolerated. - Prevena to thigh and bhavesh drain removed. Still have L groin prevena (can remove prior to dc). Iodofrom packing needed BID. Patient's significant other has done wound changed for her before and per patient can continue this dressing change. - F/u if PRS has recommendations on groin Prevena. - Home infusion working on teaching patient for discharge, cannot get usp visits, application support intern cannot travel to [place]. 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 OR [...] artery embolized with cessation of flow. L DRAW OPERATOR pseudoaneurysm ligated, very small area of ?purulence, [...] home Friday with HH and IV abx. Aphasia following cerebral infarction 01/18/2022 Apraxia following cerebral infarction 01/18/2022 Difficulty in walking, not elsewhere classified 01/18/2022 Dysphagia following unspecified cerebrovascular disease 01/18/2022 Infection and inflammatory r eaction due to other cardiac and vascular devices, implants and grafts, subsequent encounter 01/18/2022 Assessment & Plan (02/20/2023 4:50 PM CDT): - Continue Levofloxacin 750mg PO daily (PSAR), [...] ID clinic with any questions or concerns. Assessment & Plan (11/12/2022 12:27 PM INTEGRATIVE MEDICINE PHYSICIAN): - Continue Levofloxacin 750mg PO daily (PSAR), [...] ID clinic with any questions or concerns. Major depressive disorder, recurrent, unspecifie d 01/18/2022 Muscle weakness (generalized) 01/18/2022 Neuromuscular dysfunction of bladder, unspecifie d 01/18/2022 Other retention of urine 01/18/2022 Sepsis, unspecified organism 01/18/2022 Unspecified lack of coordination 01/18/2022 Unsteadiness on feet 01/18/2022 Urinary tract infection, site not specified 01/06 Weakness 01/18/2022 Peripheral vascular disease, unspecified 022 Dysphagia, unspecified 01/18/2022 Cellulitis of left lower extremity 01/16/2022 Hyperlipidemia, unspecified 01/13/2022 Bacteremia 01/13/2022 PAD (peripheral artery disease) 01/13/2022 Assessment & Plan (10/02/2022 8:52 AM INTEGRATIVE MEDICINE PHYSICIAN): - Retroperitoneal aortobifemoral bypass and left common femoral to AK popliteal artery bypass in 2016. - Lost to follow-up for several years - Occlusion of the L fem-pop bypass and L limb of the aortobifem (chronic) as well as evidence of infection of the left fem-pop bypass 05/2022 - 05/23/2022 Explantation of the left fem-pop bypass and left femoral section of the aorto femoral limb (preop PET CT had shown no involvement of the aortic graft outside the left groin, re-cannulation of the tlingit & haida left common and external iliac arteries and placed stents. - 07/10/2022 OR for a large L common femoral pseudo aneurysm having an embolization of the L external iliac artery, left axillary to profunda bypass (lateral approach) and ligation/oversewing of infected L femoral pseudo aneurysm with placement of antibiotic beads - 09/13/[address] Gillespie in clinic, she recommended a CT, lab work, augmentin and doxycycline. CT scan on 09/23 showed aorto-bifemoral bypass graft with right patent limb and left limb occluded; patent left axillary-femoral bypass graft with anastomosis to the profunda femoris artery. -Continue aspirin + Plavix. - Hold home Eliquis. Continue heparin gtt Acute cystitis without hematuria 01/12/2022 Hypokalemia 01/12/2022 Rhabdomyolysis 01/12/2022 Hypertension 01/12/2022 Dysphagia 11/15/2020 Overview (11/15/2020): Mild oral deficits. 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 - Support as needed. At risk for venous thromboembolism (VTE) 021 Overview (11/15/2020): Problem added by Discern Expert Rule: [id number]_3 Stenosis of left internal carotid artery TIA (transient ischemic attack) 09/02/2020 Morbid (severe) obesity due to excess calories 1 11/03/2019 Hypo-osmolality and hyponatremia 09/02/2020 Declined smoking cessation 09/08/2019 Assessment & Plan (07/14/2025 12:23 PM INTEGRATIVE MEDICINE PHYSICIAN): - Offered Smoking Cessation see below It s never too late to quit smoking. Quitting smoking now improves your health and reduces your risk of heart disease, cancer, lung disease, and other smoking- related illnesses. Resources for Quitting Telephone: 9-592-ILGC-NOW ( ) cdc.gov/tobacco/campaign/tips/quit-smoking Assessment & Plan (09/28/2022 8:58 AM INTEGRATIVE MEDICINE PHYSICIAN): - Smoking cessation counseling - Nicotine replacement therapy as needed alf (current) use of antithrombotics/antip latelets 09/08/2019 Dyslipidemia 07/08/2016 Assessment & Plan (09/27/2022 7:58 PM INTEGRATIVE MEDICINE PHYSICIAN): On Atorvastatin Essential (primary) hypertension 07/08/2016 Atherosclerosis of tlingit & haida artery of extremity Resolved Problems Problem Noted Date Diagnosed Date Resolved Date Acute post-operative pain 05/24/2022 Assessment & Plan (05/26/2022 8:31 AM CDT): -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 -cont PRN oxycodone -PRN narcan for over-sedation Left leg pain 05/17/2022 05/22/2022 Overview (05/20/2022): Added automatically from request for surgery [id number] Hx of aorto-femoral bypass 05/17/2022 0 05/23/2022 Overview (05/20/2022): Added automatically from request for surgery [id number] Encounters Date Type Department Care Team Description 07/11/2025 10:00 AM INTEGRATIVE MEDICINE PHYSICIAN Office Visit [facility] Medicine Infectious Diseases [address] [place] [id number] Patricia Weber NP Vascular graft infection, subsequent encounter (Primary Dx); Encounter for long-term (current) use of antibiotics; Declined smoking cessation from Last 3 Months Immunizations Immunization Administration Dates Next Due Influenza, Quadrivalent, Hig h Dose, Preservative Free, Intrr 06/12/2021 Influenza, Quadrivalent, Spl it, Preservative Free, Intramuscular 06/12/2021 Influenza, Trivalent, IM (MDV) 07/16/2013 Influenza, Unspecified 06/07/2016,07/16/2013 Moderna Sars-cov-2 Monovalen t Booster Vaccination (12+ YRS) 08/03/2021,07/10/2021 Surgical History Surgery Date Site/Laterality Comments ASPIRATION OF ABSCESS HEMATOMA CYST 06/29/2016 N/A GASTRIC BYPASS 09/08/2015 - 09/07/2016 TOE SURGERY 09/08/2011 - 09/07/2012 Right TOE SURGERY 09/08/2012 - 09/07/2013 Left Medical History Medical History Date Comments CVA (cerebral vascular accident) (HCC) PVD (peripheral vascular disease) Stenosis of left internal carotid artery Dysphagia Dyslipidemia Motor speech disorder Expressive language impairment Atherosclerosis of tlingit & haida artery of extremity Family History Medical History Relation Name Comments Heart attack Father Anesthesia problems Neg Hx Relation Name Status Comments Father Mother Alive Social History Tobacco Use Types Packs/Day Years Used Date Smoking Tobacco: Every Day Cigarettes Smokeless Tobacco: Never Tobacco Cessation:Ready to Q uit: Not Asked; Counseling Given: Not Answered Social Connection and Isolation Panel Answer Date Recorded In a typical week, how many times do you talk on the phone with family, friends, or neighbors? More than three times a week 10/04/2022 How often do you get togethe r with friends or relatives? More than three times a week 10/04/2022 How often do you attend [facility] or episcopalian services? Never 10/04/2022 Do you belong to any clubs o r organizations such as confucianism groups, unions, fraternal or athletic groups, or school groups? No 10/04/2022 How often do you attend meet ings of the clubs or organizations you belong to? Never 10/04/2022 Are you , , di vorced, , never , or living with a partner? Never 10/04/2022 AUDIT-C Answer Date Recorded Frequency of Alcohol Consumption Not on file 01/18/2025 Q2: How many drinks containi ng alcohol do you have on a typical day when you are drinking? Patient does not drink Frequency of Binge Drinking Not on file 01/06 Overall Financial Resource Strain (CARDIA) Answe r [...] place to sleep or slept in a prison (including now)? No 10/04/2022 Personal Safety Answer Date Recorded Getting School Help Needed Denies 08/31 Comments No Sex and Gender Information Value Date Recorded Sex Assigned at Not on file Legal Sex Female 4:16 AM INTEGRATIVE MEDICINE PHYSICIAN Gender Identity Not on file Sexual Orientation Not on file Last Filed Vital Signs Vital Sign Reading Time Taken Comments Blood Pressure 133/75 07/11/2025 8:28 AM INTEGRATIVE MEDICINE PHYSICIAN Pulse 64 07/11/2025 8:28 AM INTEGRATIVE MEDICINE PHYSICIAN Temperature 36.9 C (98.4 F) 07/11/2025 8:28 AM INTEGRATIVE MEDICINE PHYSICIAN Respiratory Rate 18 08/23/2024 8:10 AM INTEGRATIVE MEDICINE PHYSICIAN Oxygen Saturation 100% 07/11/2025 8:28 AM INTEGRATIVE MEDICINE PHYSICIAN Inhaled Oxygen Concentration - - Weight 94.8 kg (209 lb) 07/11/2025 8:28 AM INTEGRATIVE MEDICINE PHYSICIAN Height 165 cm (5' 4.96) 07/11/2025 8:28 AM INTEGRATIVE MEDICINE PHYSICIAN Body Mass Index 34.82 07/11/2025 8:28 AM INTEGRATIVE MEDICINE PHYSICIAN Plan of Treatment Health Maintenance Due Date Last Done Comments Cervical Cancer Screening 1971 Colon Cancer Screening-Colonoscopy 1971 Hepatitis C Screening 1971 DTaP/Tdap/Td Vaccine (1 - Tdap) 1982 Hepatitis B Screening 1989 Regular Well Visit/Exam 18-64 1989 Pneumococcal vaccine <65 (1 of 2 - PCV) 1990 Zoster Vaccine (1 of 2) 2021 Depression Screening 09/26/2023 09/26/2022, 07/04/20 22 Covid-19 Vaccine (5 - 2024-2 6 season) 2025 08/03/2021, 08/03/2021, 07/10/2021, Additional history exists Breast Cancer Screening-Mammogram 03/22/2026 03/22/2025, 03/22/2025, 03/09/2024, Additional history exists Influenza Vaccine Completed 06/20/2025, , 06/12/2021, Additional history exists Medical Devices Implanted Type Area Hose Seamer Device Identifier Shelf Expiration Date Model / Serial / Lot [employer] Stent Endoprosthesis Iliac Artery 5cm 9mm 8fr Heparin [id number] - [id number] - [id number] Implanted:Qty: 1 on 05/23/2022 by Paige Gillespie MD at [facility] Endoprosthes is Left: Iliac [employer] [id number] 02/24/2025 [id number] / [id number] / [employer] Andie[employer] [place] [employer] 14x8cm Multidirectional Fiber Patch [id number] - [id number] Implanted:Qty: 1 on 05/23/2022 by Paige Gillespie MD at [facility] Other - see comments Left: Femoral [employer] [id number] 12/25/2026 [id number] / / [id number] Description:Patch on left fe moral artery [employer] Visi-Pro 10mm 57mm 80cm Radiopaque Balloon Expand Radial Strength - S - [id number] Implanted:Qty: 1 on 05/23/2022 by Paige Gillespie MD at [facility] Stent Left: Iliac [employer] [id number] 01/07/2025 [id number] 0-57-08 0 / / [id number] Description:Left Common Star c [employer] Protege Gps Exprt 9mm .079in 60mm 80cm Otw Delivery System Self [id number] - S - [id number] Implanted:Qty: 1 on 05/23/2022 by Paige Gillespie MD at [facility] Stent Left: Iliac [employer] [id number] 12/30/2024 [id number] 09-60-8 0 / / [id number] Biocomposites Stimulan Rapid Cure Kit Paste Linen Worker 10cc 20cc Bone Void [id number] - [id number] Implanted:Qty: 1 on 07/10/2022 by Paige Gillespie MD at [facility] Left: Groin [employer] [id number] 10/08/2024 [id number] / / [id number] Biocomposites Stimulan Rapid Cure Kit Paste Linen Worker 10cc 20cc Bone Void [id number] - [id number] Implanted:Qty: 1 on 07/10/2022 by Paige Gillespie MD at [facility] Left: Groin [employer] [id number] 02/05/2025 [id number] / / [id number] [employer] 8mm 100cm 70cm Stretch Removable Ring Line Peripheral Thin Wall [id number] - [id number] - [id number] Implanted:Qty: 1 on 07/10/2022 by Paige Gillespie MD at [facility] Left: Axillary Artery [employer] [id number] 12/20/2024 [id number] / [id number] / Description:Axillo-femoral b ypass graft Amplatzer [employer] Lead Ashely [id number] Amplatzer 14mm .087in 10mm 100cm Type Ii Self Expandable Federal Law Clerk Latex Free - [id number] Implanted:Qty: 1 on 07/10/2022 by Paige Gillespie MD at [facility] Left: Groin Orr Vascular 07/08/2026 [id number] / / [id number] Insurance [facility] [place] [facility] Member Subscriber Plan / Payer (Ef fective 2022-) Name:Christina Terry Relation to Subscriber:Self Name:Christina Terry Payer ID:[id number] (NAIC) Type:MEDICARE RISK OTHER Address: [address] [facility] Advance Directives For more information, please contact: [phone] * Full Code (Latest Code Status on File) Date Activated Date Inactivated Comments 09/27/2022 5:37 PM 10/08/2022 8:03 PM * Full Code Date Activated Date Inactivated Comments 07/04/2022 2:41 PM 07/16/2022 9:46 PM * Full Code Date Activated Date Inactivated Comments 05/23/2022 9:50 PM 05/30/2022 4:27 PM * Full Code Date Activated Date Inactivated Comments 05/17/2022 8:18 PM 05/23/2022 9:50 PM Care Teams Laboratory Courier Relationship Specialty Start Date End Date Staci Segura NP [address] [address] PCP - General Nurse Practitioner 05/17/22 Radha Fan [employer]OTA Sales [employer] Occupational Therapy 10/03/21 Lydia Whelan, MOLD YARN SUPERVISOR Speech Language Pathologist Speech Therapy 12/31/21 Paige Gillespie MD [address] [address] Surgeon Vascular Surgery 06/05/22 Janine Jennings NP [address] [address] Nurse Practitioner Infectious Diseases 01/14/23
--- OUTSIDE RECORDS SUMMARY | 2025-09-06 12:02 | XMS_ITS | Encounter Summary ---
Author Organization [facility] Address [address] [place] [address] Phone Care Team Providers Care Residential Caregiver Name Role Phone Staci Segura APRN, FUNERAL PREARRANGEMENT COUNSELOR Primary Care Prov ider Lauro Bowles MD Unavailable Lexus Long APRN, PRIMER WATERPROOFING MACHINE OPERATOR Unavailable +1- [phone] Reason for Visit * Reason Comments Medication Refill Encounter Details Date Type Department Care Team (Late st Contact Info) Description 04/13/2023 [facility] [place] [address] [place] [address] Lexus Morrison, GREEN BUILDING ARCHITECT, PRIMER WATERPROOFING MACHINE OPERATOR [address] [place] [address] Medication Refill Social History Tobacco Use Types [...] Telephone Encounter - Ember Marcano RN - 04/14/2023 10:16 AM CDT Medication failed the protocol, provider to review and approve the medication order if appropriate. Requested Prescriptions Pending Prescriptions Disp Refills Escitalopram Oxalate 5 MG Tablet [Pharmacy Med Name: ESCITALOPRAM 5 MG TABLET] 90 Tablet 0 Sig: TAKE 1 TABLET BY MOUTH EVERY DAY SSRI (6 Month Refill Only) Protocol Failed - 04/13/2023 7:57 AM Failed - Has an encounter in [...] Dept 02/26/23 Office Visit Lexus Morrison APRN, [facility] Neurology [facility] 01/02/23 Office Visit Staci Segura APRN, [facility] 12/05/22 Office Visit Staci Segura APRN, [facility] 11/20/22 Office Visit Brianna Sloan APRN, [facility] 11/11/22 Office Visit Brianna Sloan APRN, [facility] [place] 10/28/22 Office Visit Brianna Sloan APRN, FUNERAL PREARRANGEMENT COUNSELOR [facility] Showing recent visits within past 182 days and meeting all other requirements Future Appointments Date Type Provider Dept 04/23/23 Appointment Staci Segura APRN, FUNERAL PREARRANGEMENT COUNSELOR [facility] [place] Showing future appointments within next 90 days and meeting all other requirements Passed - Patient has established therapy with SSRI for at least 6 months documented in this encounter Plan of Treatment Upcoming Encounters Date Type Department Care Team (Late st Contact Info) Description 12/12/2025 10:00 AM CDT Office Visit [facility] - Neurology - [place] [address] [facility] [place] [address] Lexus Morrison APRN, PRIMER WATERPROOFING MACHINE OPERATOR [address] [place] [address] 12/23/2025 8:00 AM CDT Office Visit [facility] Family Medicine [facility] #[address] [place] [address] Staci Segura APRN, FUNERAL PREARRANGEMENT COUNSELOR [address] [address] documented as of this encounter Visit Diagnoses Diagnosis Depression, unspecified depression type documented in this encounter Additional Health Concerns Assessment Noted Time PHQ-9 Depression Total Score: 0 11/21/19 21 10:00 AM CDT documented as of this encounter Care Teams Residential Caregiver Relationship Specialty Start Date End Date Staci Segura APRN, FUNERAL PREARRANGEMENT COUNSELOR [address] [address] PCP - General Advanced Practice Nurse 11/20/20 Lauro Bowles MD [address] [address] Consulting Physician Cardiovascular Disease - Cardiology 04/16/22 10/27/24 Lexus Morrison APRN, PRIMER WATERPROOFING MACHINE OPERATOR [address] [place] [address] Nurse Practitioner Advanced Practice Nurse 02/26/23 documented as of this encounter
--- OUTSIDE RECORDS SUMMARY | 2025-09-06 12:02 | XMS_ITS | Encounter Summary ---
Author Organization [facility] Address [address] [place] [address] Phone Care Team Providers Care Gas Meter Installer Name Role Phone Staci Segura APRN, BUN ICER Primary Care Prov ider Lauro Bowles MD Unavailable Lexus Long APRN, ANIMAL HOSPITAL CLERK Unavailable +1- [phone] Reason for Visit * Reason Comments Medication Refill Encounter Details Date Type Department Care Team (Late st Contact Info) Description 08/17/2023 Refill [facility] - Family Medicine - [place] [address] [place] [address] Staci Segura APRN, BUN ICER [address] [address] Medication Refill Social History Tobacco [...] Telephone Encounter - Shamika Sahni RMA - 08/19/2023 10:30 AM DIRECTOR SECURITY RISK MANAGEMENT scheduled CTOR SECURITY RISK MANAGEMENT * Telephone Encounter - Staci Segura APRN, CNP - 08/18/2023 12:23 PM DIRECTOR SECURITY RISK MANAGEMENT Needs scheduled for OV CTOR SECURITY RISK MANAGEMENT * Telephone Encounter - Rosa Ronquillo RN - 08/17/2023 1:05 PM DIRECTOR SECURITY RISK MANAGEMENT Medication failed the protocol, provider to review and approve the medication order if appropriate. Requested Prescriptions Pending Prescriptions Disp Refills atorvastatin (LIPITOR) 80 MG Tablet [Pharmacy Med Name: ATORVASTATIN 80 MG TABLET] 90 Tablet 1 Sig: TAKE 1 TABLET BY MOUTH EVERY DAY [facility] CoA Reductase Inhibitors Protocol Failed - 08/17/2023 7:39 AM Failed - Lipid panel in past 12 months LDL Date Value Ref Range Status 01/13/2022 27 5 - 130 mg/dL Final HDL CHOLESTEROL Date Value Ref Range Status 01/13/2022 13.9 (L) >40 mg/dL Final CHOLESTEROL Date Value Ref Range Status 01/13/2022 57 <=200 mg/dL Final TRIGLYCERIDES Date Value Ref Range Status 01/13/2022 82 <150 mg/dL Final VLDL Date Value Ref Range Status 01/13/2022 16 5 - 55 mg/dL Final CHOL/HDL RATIO Date Value Ref Range Status 01/13/2022 4.1 0.0 - 4.4 Final NON-HDL CHOLESTEROL Date Value Ref Range Status 01/13/2022 43.1 <130 mg/dL Final Passed - No positive test in the past 12 months or most recent test was negative Passed - Visit with relevant provider in past 12 months or upcoming 90 days Recent Visits Date Type Provider Dept 01/02/23 Office Visit Staic Segura APRN, [facility] [place] 12/05/22 Office Visit Staci Segura APRN, [facility] 11/20/22 Office Visit Brianna Sloan APRN, [facility] 11/11/22 Office Visit Brianna Sloan APRN, [facility] [place] 10/28/22 Office Visit Brianna Sloan APRN, [facility] Showing recent visits within past 365 days and meeting all other requirements Future Appointments No visits were found meeting these conditions. Showing future appointments within next 90 days and meeting all other requirements Passed - No active on record Passed - CMP in past 12 months SODIUM Date Value Ref Range Status 10/23/2022 138 136 - 144 mmol/L Final POTASSIUM Date Value Ref Range Status 10/23/2022 4.1 3.5 - 5.1 mmol/L Final CHLORIDE Date Value Ref Range Status 10/23/2022 101 100 - 110 mmol/L Final CO2, VENOUS Date Value Ref Range Status 10/23/2022 24 22 - 32 mmol/L Final ANION GAP Date Value Ref Range Status 10/23/2022 17.1 8.0 - 20.0 mmol/L Final GLUCOSE Date Value Ref Range Status 10/23/2022 97 70 - 99 mg/dL Final BUN Date Value Ref Range Status 10/23/2022 12 6 - 20 mg/dL Final CREATININE, BLOOD Date Value Ref Range Status 10/23/2022 0.80 0.60 - 1.10 mg/dL Final BUN/CREATININE RATIO Date Value Ref Range Status 10/23/2022 15 12 - 20 ratio Final TOTAL PROTEIN Date Value Ref Range Status 10/14/2022 6.8 6.0 - 8.3 g/dL Final 10/14/2022 6.8 6.0 - 8.3 g/dL Final ALBUMIN Date Value Ref Range Status 10/14/2022 4.0 3.5 - 5.2 g/dL Final Comment: The colormetric methods used for the determination of Albumin may lead to falsely elevated test results in patients suffering from renal failure or insufficiency due to interference with other proteins. 10/14/2022 4.0 3.5 - 5.2 g/dL Final Comment: The colormetric methods used for the determination of Albumin may lead to falsely elevated test results in patients suffering from renal failure or insufficiency due to interference with other proteins. A/G RATIO Date Value Ref Range Status 10/14/2022 1.4 1.0 - 2.0 Final CALCIUM Date Value Ref Range Status 10/23/2022 9.8 8.9 - 10.3 mg/dL Final T BILI Date Value Ref Range Status 10/14/2022 <0.3 <=1.2 mg/dL Final 10/14/2022 <0.3 <=1.2 mg/dL Final SGOT (AST) Date Value Ref Range Status 10/14/2022 15 <=32 U/L Final 10/14/2022 15 <=32 U/L Final SGPT (ALT) Date Value Ref Range Status 10/14/2022 11 <=41 U/L Final 10/14/2022 11 <=41 U/L Final ALKALINE PHOSPHATASE Date Value Ref Range Status 10/14/2022 106 (H) 35 - 105 U/L Final 10/14/2022 106 (H) 35 - 105 U/L Final GFR, EST. NONAFRICAN Date Value Ref Range Status 10/23/2022 >60 >=60 Final GFR, EST. Date Value Ref Range Status 10/23/2022 >60 >=60 Final GFR, ESTIMATED Date Value Ref Range Status 10/23/2022 >60 >=60 Final Comment: Creatinine Clearance is the preferred criteria for selecting drug dose adjustments in renally impaired patients. The GFR is provided as additional pertinent clinical information. GFR is reported in mL/min/1.73 sq m. Calculation based on the Chronic Kidney Disease Epidemiology Collaboration (CKD- EPI) equation refitwithout adjustment for race. IS THE PATIENT REQUIRED TO BE FASTING? Date Value Ref Range Status 03/12/2022 No Final CTOR SECURITY RISK MANAGEMENT documented in this encounter Plan of Treatment Upcoming Encounters Date Type Department Care Team (Late st Contact Info) Description 12/12/2025 10:00 AM CDT Office Visit [facility] - Neurology - [place] [address] [place] [address] Lexus Morrison APRN, ANIMAL HOSPITAL CLERK [address] [place] [address] 12/23/2025 8:00 AM CDT Office Visit [facility] #[address] [place] [address] Staci Segura APRN, BUN ICER [address] [address] documented as of this encounter Visit Diagnoses Not on filedocumented in this encounter Additional Health Concerns Assessment Noted Time PHQ-9 Depression Total Score: 0 11/21/19 21 10:00 AM CDT documented as of this encounter Care Teams Gas Meter Installer Relationship Specialty Start Date End Date Staci Segura APRN, BUN ICER [address] [address] PCP - General Advanced Practice Nurse 11/20/20 Lauro Bowles MD #[address] [address] Consulting Physician Cardiovascular Disease - Cardiology 04/16/22 10/27/24 Lexus Morrison APRN, ANIMAL HOSPITAL CLERK [address] [place] [address] Nurse Practitioner Advanced Practice Nurse 02/26/23 documented as of this encounter
--- OUTSIDE RECORDS SUMMARY | 2025-09-06 12:02 | XMS_ITS | Encounter Summary ---
Author Organization [facility] Address [address] [place] [address] Phone Care Team Providers Care Chip Separator Name Role Phone Staci Segura APRN, CARTON MAKER Primary Care Prov ider Lauro Bowles MD Unavailable Lexus Long APRN, BAKERY DEMONSTRATOR Unavailable [phone]- [phone] Reason for Visit * Reason Comments Medication Refill Encounter Details Date Type Department Care Team (Late st Contact Info) Description 03/19/2023 Refill [facility] - Family Medicine - [place] [address] [place] [address] Staci Segura APRN, CARTON MAKER #[address] [address] Medication Refill Social History Tobacco [...] In the last 10 days, have queenie james been in contact with someone who was confirmed or suspected to have Coronavirus/COVID-19? No / Unsure 02/26/2023 9:19 AM CDT documented as of this encounter Miscellaneous Notes * Telephone Encounter - Nydia Avila RN - 03/19/2023 1:30 PM CDT Medication failed the protocol, provider to review and approve the medication order if appropriate. Requested Prescriptions Pending Prescriptions Disp Refills atorvastatin (LIPITOR) 80 MG Tablet [Pharmacy Med Name: ATORVASTATIN 80 MG TABLET] 90 Tablet 1 Sig: TAKE 1 TABLET BY MOUTH EVERY DAY Hmg CoA Reductase Inhibitors Protocol Failed - 03/19/2023 1:10 AM Failed - Lipid panel in past [...] Date Type Provider Dept 01/02/23 Office Visit Staci Segura APRN, [facility] 12/05/22 Office Visit Staci Segura APRN, [facility] 11/20/22 Office Visit Brianna Sloan APRN, [facility] 11/11/22 Office Visit Brianna Sloan APRN, [facility] 10/28/22 Office Visit Brianna Sloan APRN, CNP [facility] 06/04/22 Office Visit Staci Segura APRN, [facility] Showing recent visits within past 365 days and meeting all other requirements Future Appointments Date Type Provider Dept 04/03/23 Appointment Staci Segura APRN, [facility] Showing future appointments within next 90 days [...] Value Ref Range Status 03/12/2022 No Final documented in this encounter Plan of Treatment Upcoming Encounters Date Type Department Care Team (Late st Contact Info) Description 12/12/2025 10:00 AM CDT [facility] #[address] [place] [address] Lexus Morrison APRN, BAKERY DEMONSTRATOR [address] [place] [address] 12/23/2025 8:00 AM CDT [facility] - Family Medicine - [place] [address] [place] [address] Staci Segura APRN, CARTON MAKER #[address] [address] documented as of this encounter Visit Diagnoses Not on filedocumented in this encounter Additional Health Concerns Assessment Noted Time PHQ-9 Depression Total Score: 0 11/21/19 10:00 AM CDT documented as of this encounter Care Teams Chip Separator Relationship Specialty Start Date End Date Staci Segura APRN, CARTON MAKER #[address] [address] PCP - General Advanced Practice Nurse 11/20/20 Lauro Bowles MD #[address] [address] Consulting Physician Cardiovascular Disease - Cardiology 04/16/22 10/27/24 Lexus Morrison APRN, BAKERY DEMONSTRATOR [address] [place] [address] Nurse Practitioner Advanced Practice Nurse 02/26/23 documented as of this encounter
--- OUTSIDE RECORDS SUMMARY | 2025-09-06 12:02 | XMS_ITS | Encounter Summary ---
Author Organization [facility] Address [address] [place] [address] Phone Care Team Providers Care Guest Request Runner Name Role Phone Staci Segura APRN, ELECTROSTATIC PAINT OPERATOR Primary Care Prov ider Lauro Bowles MD Unavailable Lexus Long APRN, DEBT COLLECTOR Unavailable +1- [phone] Reason for Visit * Reason Onset Date Comments Need Order 10/16/2022 Encounter Details Date Type Department Care Team (Late st Contact Info) Description 10/16/2022 Telephone [facility] [address] [place] [address] Staci Segura APRN, ELECTROSTATIC PAINT OPERATOR [address] [address] Need Order Social History Tobacco Use Types Packs/Day Years [...] suspected to have Coronavirus/COVID-19? 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 She is wanting to know if orders can be placed for EKGs to be done before and after starting new antibiotics to monitor this. Please advise. She is requesting a call from Adalberto Segura at [phone]. EW SCHEDULING COORDINATOR documented in this encounter Plan of Treatment Upcoming Encounters Date Type Department Care Team (Late st Contact Info) Description 12/12/2025 10:00 AM CDT [facility] [place] [address] [place] [address] Lexus Morrison APRN, DEBT COLLECTOR [address] [place] [address] 12/23/2025 8:00 AM CDT Office [facility] - Family Medicine - [place] [address] [place] [address] Staci Segura APRN, ELECTROSTATIC PAINT OPERATOR #[address] [address] documented as of this encounter Visit Diagnoses Not on filedocumented in this encounter Additional Health Concerns Assessment Noted Time PHQ-9 Depression Total Score: 0 11/21/19 21 10:00 AM CDT documented as of this encounter Care Teams Guest Request Runner Relationship Specialty Start Date End Date Staci Segura, WEALTH MANAGEMENT MANAGER, ELECTROSTATIC PAINT OPERATOR #[address] [address] PCP - General Advanced Practice Nurse 11/20/20 Lauro Bowles MD #[address] [address] Consulting Physician Cardiovascular Disease - Cardiology 04/16/22 10/27/24 Lexus Morrison, WEALTH MANAGEMENT MANAGER, DEBT COLLECTOR [address] [place] [address] Nurse Practitioner Advanced Practice Nurse 02/26/23 documented as of this encounter
--- OUTSIDE RECORDS SUMMARY | 2025-09-06 12:02 | XMS_ITS | Encounter Summary ---
Author Organization [facility] Address [address] [place] [address] Phone Care Team Providers Care Vehicle Technician Name Role Phone Staci Segura APRN, IMPREGNATOR OPERATOR Primary Care Prov ider Lauro Bowles MD Unavailable Lexus Long APRN, IT SECURITY PROJECT MANAGER Unavailable [phone]- [phone] Reason for Visit * Reason Comments Medication Refill Encounter Details Date Type Department Care Team (Late st Contact Info) Description 01/14/2023 Refill [facility] - Neurology - [place] [address] [place] [address] Lexus Morrison, SIGN ERECTOR, IT SECURITY PROJECT MANAGER [address] [place] [address] Medication Refill Social History Tobacco Use Types [...] suspected to have Coronavirus/COVID-19? No / Unsure 01/02/2023 8:35 AM CDT documented as of this encounter Plan of Treatment Upcoming Encounters Date Type Department Care Team (Late st Contact Info) Description 12/12/2025 10:00 AM CDT Office Visit [facility] Neurology [facility] [address] [place] [address] Lexus Morrison APRN, IT SECURITY PROJECT MANAGER [address] [place] [address] 12/23/2025 8:00 AM CDT Office Visit [facility] Family Medicine [facility] [address] [place] [address] Staci Segura APRN, IMPREGNATOR OPERATOR #[address] [address] documented as of this encounter Visit Diagnoses Diagnosis Depression, unspecified depression type documented in this encounter Additional Health Concerns Assessment Noted Time PHQ-9 Depression Total Score: 0 11/21/19 21 10:00 AM CDT documented as of this encounter Care Teams Vehicle Technician Relationship Specialty Start Date End Date Staci Segura APRN, IMPREGNATOR OPERATOR #[address] [address] PCP - General Advanced Practice Nurse 11/20/20 Lauro Bowles MD #[address] [place] [address] Consulting Physician Cardiovascular Disease - Cardiology 04/16/22 10/27/24 Lexus Morrison APRN, IT SECURITY PROJECT MANAGER [address] [place] [address] Nurse Practitioner Advanced Practice Nurse 02/26/23 documented as of this encounter
--- OUTSIDE RECORDS SUMMARY | 2025-09-06 12:03 | XMS_ITS ---
Author Organization [facility] [employer] [facility] Care Team Providers Care Caregiver Services Home Name Role Phone Nicci Gibson Unavailable Unavailable Versluys, Janny Unavailable Unavailable Habib, Usman Unavailable Unavailable Bone, Emir Unavailable Unavailable Ampadu, Khoi Unavailable Unavailable Fahim, Magid Unavailable Unavailable Regan, Jade Unavailable Unavailable Allergies and adverse reactions No Known Allergies Care Team Name Role Address Phone Organization Dates Khoi Ampadu PCP [address] [place], [place], [facility], [facility] (Office): : [facility] [employer] 01/18/2022 - 02/28/2022 Nicci Gibson [address] [facility] [address], [place], [facility], [facility] (Office): : [facility] [employer] 01/18/2022 - 02/28/2022 Janny Morganluys [address] [facility] [address], [place], [address], [place] (Office): : [employer] 01/18/2022 - 02/28/2022 Usman Habib [address] [place], [place], [facility], [facility] (Office): : : [employer] 01/18/2022 - 02/28/2022 Emir Bone [address], [place], [address], [place] (Office): : [employer] 01/18/2022 - 02/28/2022 Km Colon [address], [place], [address], [place] (Office): : [employer] 01/18/2022 - 02/28/2022 Jade Spears [address], [place], [address], [place] (Office): : [employer] 01/18/2022 - 02/28/2022 Immunizations Immunization Status Vaccine [...] Other information Code: 2 Code System OID:[id number] [id number]. 3.221.5 Code System Name: Source of Payment Typology ([facility]) Display: Medicaid Translation : Code: 48 Code System: OID:2.16.84 [id number]. 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 3 DIFFICULTY IN WALKING, NOT ELSEWHERE CLASSIFIED [address] active 4 DYSPHAGIA FOLLOWING UNSPECIFIED CEREBROVASCULAR DISEASE [address] active 5 DYSPHAGIA, UNSPECIFIED [address] active 6 ESSENTIAL (PRIMARY) HYPERTENSION [address] active 7 HYPERLIPIDEMIA, UNSPECIFIED [address] active 8 INFECTION AND INFLAMMATORY REACTION DUE TO OTHER CARDIAC AND VASCULAR DEVICES, IMPLANTS AND GRAFTS, SUBSEQUENT ENCOUNTER [address] active 9 MAJOR DEPRESSIVE DISORDER, RECURRENT, UNSPECIFIED [address] active 10 MUSCLE WEAKNESS (GENERALIZED) [address] active 11 NEUROMUSCULAR DYSFUNCTION OF BLADDER, UNSPECIFIED [address] active 12 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 [address] active 13 OTHER RETENTION OF URINE [address] active 14 PERIPHERAL VASCULAR DISEASE, UNSPECIFIED [address] active 15 PERSONAL HISTORY OF TRANSIENT ISCHEMIC ATTACK (TIA), AND CEREBRAL INFARCTION WITHOUT RESIDUAL DEFICITS 2 01/21/[address] completed 16 SEPSIS, UNSPECIFIED ORGANISM [address] active 17 UNSPECIFIED LACK OF COORDINATION [address] active 18 UNSTEADINESS ON FEET [address] active 19 URINARY TRACT INFECTION, SITE NOT SPECIFIED [address] active 20 WEAKNESS [address] active Reason for Referral No Reasons for Referral Entered Social History Social History Observation Description Start Date End Date Code Code System Current Smoking Status Tobacco smoking consumption unknown 375356060 SNOMED CT Sex Assigned At Female 1970 11735-6 [facility] Gender Identity Sexual Orientation Vital Signs Code Code System Vitals Name Values and Units Timing Information 12260-5 [facility] Pain Level Value=0.0 02/28/2022 9279-1 [facility] Respiratory Rate Value=20.0 Units=/m in 02/28/2022 8462-4 [facility] Blood Pressure-Diastolic Value=72 Un its=mmHg 02/28/2022 8480-6 [facility] Blood Pressure-Systolic Tmcdy=568 Un its=mmHg 02/28/2022 8310-5 [facility] Body Temperature Value=97.8 Units= F 02/28/2022 8867-4 [facility] Heart rate Value=70.0 Units=/min 36364-6 [facility] Weight Acdzz=907.0 Units=Lbs 48778-8 [facility] O2 % BldC Oximetry Value=98.0 Units= % 02/20/2022
--- OUTSIDE RECORDS SUMMARY | 2025-09-06 12:04 | XMS_ITS ---
Author Organization [facility] Care Team Providers Care Cascara Bark Cutter Name Role Phone Nicci Gibson Unavailable Unavailable Versluys, Janny Unavailable Unavailable Habib, Usman Unavailable Unavailable Bone, Emir Unavailable Unavailable Ampadu, Khoi Unavailable Unavailable Fahim, Magid Unavailable Unavailable Regan, Jade Unavailable Unavailable Allergies and adverse reactions No Known Allergies Care Team Name Role Address Phone Organization Dates Khoi Ampadu PCP [address] [place], [place], [facility], [place] (Office): : [facility] 01/18/2022 - 02/28/2022 Nicci Gibson [address] [facility] [address], [place], [facility], [facility] (Office): : [facility] 01/18/2022 - 02/28/2022 Janny Morganluys [address] [facility] [address], [place], [address], [place] (Office): : [facility] 01/18/2022 - 02/28/2022 Usman Habib [address] [place], [place], [facility], [facility] (Office): : : [facility] 01/18/2022 - 02/28/2022 Emir Bone [address], [place], [address], [place] (Office): : [facility] 01/18/2022 - 02/28/2022 Km [address], [place], [address], [place] (Office): : [facility] 01/18/2022 - 02/28/2022 Jade Spears [address], [place], [address], [place] (Office): : [facility] 01/18/2022 - 02/28/2022 Immunizations Immunization Status Vaccine [...] Other information Code: 2 Code System OID:[email or web address] [id number]. 3.221.5 Code System Name: Source of Payment Typology ([facility]) Display: Medicaid Translation : Code: 48 Code System: OID:2.16.84 [id number]. 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 3 DIFFICULTY IN WALKING, NOT ELSEWHERE CLASSIFIED [address] active 4 DYSPHAGIA FOLLOWING UNSPECIFIED CEREBROVASCULAR DISEASE [address] active 5 DYSPHAGIA, UNSPECIFIED [address] active 6 ESSENTIAL (PRIMARY) HYPERTENSION [address] active 7 HYPERLIPIDEMIA, UNSPECIFIED [address] active 8 INFECTION AND INFLAMMATORY REACTION DUE TO OTHER CARDIAC AND VASCULAR DEVICES, IMPLANTS AND GRAFTS, SUBSEQUENT ENCOUNTER [address] active 9 MAJOR DEPRESSIVE DISORDER, RECURRENT, UNSPECIFIED [address] active 10 MUSCLE WEAKNESS (GENERALIZED) [address] active 11 NEUROMUSCULAR DYSFUNCTION OF BLADDER, UNSPECIFIED [address] active 12 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 [address] active 13 OTHER RETENTION OF URINE [address] active 14 PERIPHERAL VASCULAR DISEASE, UNSPECIFIED [address] active 15 PERSONAL HISTORY OF TRANSIENT ISCHEMIC ATTACK (TIA), AND CEREBRAL INFARCTION WITHOUT RESIDUAL DEFICITS 2 01/21/[address] completed 16 SEPSIS, UNSPECIFIED ORGANISM [address] active 17 UNSPECIFIED LACK OF COORDINATION [address] active 18 UNSTEADINESS ON FEET [address] active 19 URINARY TRACT INFECTION, SITE NOT SPECIFIED [address] active 20 WEAKNESS [address] active Reason for Referral No Reasons for Referral Entered Social History Social History Observation Description Start Date End Date Code Code System Current Smoking Status Tobacco smoking consumption unknown 496753902 SNOMED CT Sex Assigned At Female 1970 24172-[address] [facility] Gender Identity Sexual Orientation Vital Signs Code Code System Vitals Name Values and Units Timing Information 42150-[address] [facility] Pain Level Value=0.0 02/28/2022 9279-[address] [facility] Respiratory Rate Value=20.0 Units=/m in 02/28/2022 8462-[address] [facility] Blood Pressure-Diastolic Value=72 Un its=mmHg 02/28/2022 8480-[address] [facility] Blood Pressure-Systolic Eokyg=948 Un its=mmHg 02/28/2022 8310-[address] [facility] Body Temperature Value=97.8 Units= F 02/28/2022 8867-[address] [facility] Heart rate Value=70.0 Units=/min 48277-[address] [facility] Weight Lvavq=523.0 Units=Lbs 60766-[address] [facility] O2 % BldC Oximetry Value=98.0 Units= % 02/20/2022
== END 2025-09-06 12:07 | disposition home or self-care (01) ==
PROVIDERS: Emergency Provider Nurse Practitioner; PCP Family Medicine
DX: H66.012 Acute suppurative otitis media with spontaneous rupture of ear drum, left ear (principal); F17.200 Nicotine dependence, unspecified, uncomplicated; I10 Essential (primary) hypertension; E78.00 Pure hypercholesterolemia, unspecified; Z86.73 Personal history of transient ischemic attack (TIA), and cerebral infarction without residual deficits
CPT/HCPCS: 99213; G0463